=== PATIENT | female | born 1945 | race Caucasian/White ===

== ENCOUNTER 2019-08-09 09:38 | Outpatient (CLI) | payer MEDICARE, SELFPAY ==
--- NOTE | 2019-08-09 10:42 | ECG_ITS ---
Measurements Intervals [place] Rate: 77 P: 27 PA: 165 QRS: -19 QRSD: 107 T: 28 QT: 352 QTc: 398 Interpretive Statements SINUS RHYTHM FREQUENT ATRIAL PREMATURE COMPLEXES BORDERLINE R WAVE PROGRESSION, ANTERIOR LEADS BASELINE ARTIFACT- I, II, III, AVR, AVL, AVF, V1-V3 ABNORMAL ECG Electronically Signed On 08-09-2019 11:11:24 SATURATION DIVER by Dalton Lechuga D.O.
[2019-08-09 11:24] LABS: Basophils Percent Auto 0.2 % (0.2-1.2); Eosinophils Absolute Auto 0.2 K/mm3 (0-0.3); Hematocrit 44.1 % (37.0-47.0); Hemoglobin 14.5 g/dL (12.0-15.0); Immature Granulocyte Absolute 0.02 K/mm3 (0.00-0.031); Immature Granulocyte Percent A 0.2 % (0-0.5); Lymphocytes Absolute Auto 3.38 K/mm3 (0.9-3.2); Lymphocytes Percent Auto 29.5 % (18.3-44.2); Mean Corpuscular HGB Conc 32.9 g/dl (32-36); Mean Corpuscular Hemoglobin 30.2 pg (26-34); Mean Corpuscular Volume 91.9 fl (80-100); Mean Platelet Volume 10.7 fl (7.4-10.4); Monocytes Absolute Auto 0.6 K/mm3 (0.1-0.6); Monocytes Percent Auto 5.1 % (2.6-8.5); Neutrophils Absolute Auto 7.2 K/mm3 (1.3-6.7); Platelet Count Result 231 k/mm3 (150-375); Red Cell Distribution Width 13.2 % (11.5-14.5); White Blood Count 11.5 K/mm3 (4.5-10.0)
[2019-08-09 11:34] LABS: INR 1.4; Prothrombin Time 16.9 Seconds (11.1-14.7)
[2019-08-09 11:37] LABS: Alanine Aminotransferase 17 U/L (4-35); Albumin Level 4.4 g/dL (3.5-5.1); Alkaline Phosphatase 94 U/L (38-126); Aspartate Amino Transferase 25 U/L (14-36); Bilirubin,Total 0.4 mg/dL (0.2-1.3); Blood Urea Nitrogen 18 mg/dL (7-17); Calcium 9.7 mg/dL (8.4-10.2); Carbon Dioxide 28 mmol/L (22-30); Chloride 102 mmol/L (98-107); Estimated Glomerular Filt Rate > 60; Glucose 102 mg/dL (65-105); Potassium 4.3 mmol/L (3.4-5.0); Sodium 140 mmol/L (137-145)
== END 2019-08-09 09:39 | disposition home or self-care (01) ==
LOC: ANHSURGERY 09:43
PROVIDERS: PCP Family Medicine; Visit Provider Urology
DX: N81.4 Uterovaginal prolapse, unspecified (principal); I10 Essential (primary) hypertension; R94.31 Abnormal electrocardiogram [ECG] [EKG]
CPT/HCPCS: 36415; 80053; 85025; 85610; 85730; 86850; 86900; 86901; 87086; 87088; 93005

== ENCOUNTER 2019-08-19 00:24 | Day surgery (SDC) | payer MEDICARE, SELFPAY ==
[2019-08-09 10:48] VITALS: BP 152/73; PULSE 77; RESP 18; TEMP 36.8; O2SAT 98; BMI 38.0
--- NOTE | 2019-08-14 08:36 | P.HP_ITS ---
H&P: HPI History of Present Illness Chief complaint: Cystocele/ Uterine Prolapse/Fibroids Narrative: Loren Hooper is a 73 year old female who is admitted for supracervical hysterectomy and bilateral salpingo- oophorectomy. She will also undergo a hip FX in with Dr. herrera torres or current direct have this surgically repaired risks and benefits reviewed 14 tear Review of Systems Review of Systems: All systems reviewed & are unremarkable except as noted in HPI and below Meds Home Medications and Allergies Home Medications Medication Instructions Recorded Confirmed Type acetaminophen [Tylenol Arthritis 650 mg PO PRN PRN 08/09/19 08/09/19 History Pain] atorvastatin 20 mg PO DAILY 08/09/19 08/09/19 History levothyroxine 100 mcg PO DAILY 08/09/19 08/09/19 History lisinopril-hydrochlorothiazide 1 tablet PO DAILY 08/09/19 08/09/19 History wlkprrjd-sbh-DW-lycopen-lutein 1 tablet PO DAILY 08/09/19 08/09/19 History [Complete Multi 50+] omeprazole 20 mg PO DAILY 08/09/19 08/09/19 History Allergies Allergy/AdvReac Type Severity Reaction Status Date / Time No Known Allergies Allergy Unverified 08/09/19 10:05 Exam Const: General: no acute distress Eyes: General: appearance normal, both eyes and all related structures Neck: Neck: supple and no JVD Thyroid: thyroid normal Resp: Effort & Inspection: normal respiratory effort Auscultation: clear to auscultation bilaterally Cardio: Rate: regular rate Rhythm: regular rhythm GI: Inspection: non-distended GI Palp: Yes Soft to palpation, No Tenderness to palpation present (GI) and No Guarding due to palpation present (GI) Auscultation: normal bowel sounds : External Female Exam: Abnormal introitus Speculum Exam - Vagina: normal appearance of the vagina Speculum Exam - Cervix: Other cervical findings present (prolapse) Skin: General skin exam: no rashes or lesions noted Extrem: General: normal to inspection and no edema Psych: Mental Status: mental status grossly normal Affect: normal affect Assessment and Plan Additional Plan impression: Pelvic prolapse Plan: Robotic supracervical hysterectomy, bilateral salpingo-oophorectomy. She will also have sacral colpopexy with Dr. Hines
[2019-08-19] VITALS (15 sets, daily range): BP systolic 108–155; BP diastolic 53–78; PULSE 53–82; RESP 16–22; TEMP 36.1–37.1; O2SAT 93–100
--- NOTE | 2019-08-19 06:48 | WPDHPUPDATE1 ---
History and Physical Update Update Date/Time: 08/19/19 06:48 History and Physical has been reviewed, including an updated exam of the patient. There are NO changes in the patient's condition. Risks, benefits, and alternatives have been discussed and questions answered. Patient agrees to proceed with procedure.
[2019-08-19] MEDS: LACTATED RINGERS 1,000 ML 30 ML IV CONT ×2 (07:00→10:33)
--- NOTE | 2019-08-19 07:13 | P.PNAN_ITS ---
Anes - Initial Pre Proc Eval Procedure: Operation Date: 08/19/19 07:30 Proposed Procedures p Robotic Sacrocolpopexy, Possible Urethral Sling - Castillo Hines MD s Robotic Assisted Supracervical Hysterectomy, Bilateral Salpingectomy - Hermes Barksdale MD Date/Time: 08/19/19 07:13 Surgeon: Castillo Hines MD Pre Op Diagnosis: Cystocele/ Uterine Prolapse/Fibroids Patient Data Age: 73 Gender: F Height: 5 ft 3 in Weight: 97.3 kg Last Vital Signs Temp 36.8 C 08/09/19 10:48 Pulse 77 08/09/19 10:48 Resp 18 08/09/19 10:48 BP 152/73 H 08/09/19 10:48 Pulse Ox 98 08/09/19 10:48 Allergies Allergy/AdvReac Type Severity Reaction Status Date / Time No Known Allergies Allergy Unverified 08/09/19 10:05 Home Medications Medication Instructions Recorded Confirmed Type acetaminophen [Tylenol Arthritis 650 mg PO PRN PRN 08/09/19 08/09/19 History Pain] atorvastatin 20 mg PO DAILY 08/09/19 08/09/19 History levothyroxine 100 mcg PO DAILY 08/09/19 08/09/19 History lisinopril-hydrochlorothiazide 1 tablet PO DAILY 08/09/19 08/09/19 History jzgfuedo-gke-RC-lycopen-lutein 1 tablet PO DAILY 08/09/19 08/09/19 History [Complete Multi 50+] omeprazole 20 mg PO DAILY 08/09/19 08/09/19 History hydrocodone-acetaminophen [[place]] 1 tablet PO Q4H PRN #30 tablet 08/19/19 Rx Laboratory Tests 08/19/19 06:50 PT Pending INR Pending Patient hx anesthesia problems: none Family hx anesthesia problems: none PMFSH Past Medical History Medical History (Updated 08/19/19 @ 07:14 by Hilario Kuhn MD) GERD (gastroesophageal reflux disease) Hyperlipidemia Hypertension Hypothyroid Obesity Anes - Eval Final PreProcedure Day of Procedure 08/19/19 07:13 Patient weight: obese Heart: regular rate and rhythm Lungs: clear to auscultation Airway: Mallampati scale class II Neurological: alert and oriented Last oral intake: >/= 8 hours ASA classification: III Emergent: no Anesthetic plan: proceed Anesthesia type and monitoring: general ETT and standard monitoring Informed Consent: The patient's anesthetic plan and its attendant risks and benefits were discussed with the patient/family/POA. Questions were solicited and answers provided to the satisfaction of the patient/family/POA.
--- NOTE | 2019-08-19 07:21 | WPDHPUPDATE1 ---
History and Physical Update Update Date/Time: 08/19/19 07:21 History and Physical has been reviewed, including an updated exam of the patient. There are NO changes in the patient's condition. Risks, benefits, and alternatives have been discussed and questions answered. Patient agrees to proceed with procedure.
[2019-08-19] MEDS: ceFAZolin 2 GM/D5W 50 ML 2 GM/50 ML BAG IVPB (07:40)
[2019-08-19] MEDS: metroNIDAZOLE 500 MG/ISO 100ML 500 MG/100 ML BAG 100 MG IVPB ×2 (07:43→17:09)
--- NOTE | 2019-08-19 08:39 | PM.PROC ---
Procedure Note - Detailed Date of procedure: 08/19/19 Pre-op diagnosis: Cystocele/ Uterine Prolapse/Fibroids Surgeon: Hermes Barksdale MD Postop diagnosis: Cystocele/uterine prolapse/fibroids Procedure: Robotic supracervical hysterectomy bilateral salpingo-oophorectomy. This was done in conjunction with Dr. gomes robotic sacrocolpopexy EBL: 5cc Anesthesia: General endotracheal complications: None Findings: Uterine prolapse. Normal-appearing adnexa Description procedure: The patient was prepped draped in the normal sterile fashion and placed in the dorsal lithotomy position. Under excellent general endotracheal anesthesia weighted speculum was placed in posterior fornix of vagina. The anterior lip of the cervix was grasped with a single-tooth tenaculum and a Herrera's cannula inserted attached to the single-tooth to be used later for uterine removed manipulation. A [address] [place] [address] was [address] Hines proceeded to dock the robot. Please see his report for full details. Once the robot was docked attention was turned to the console. The left round ligament was grasped, burned, cut. Anterior bladder flap was formed by sharply dissecting the bladder across the superior to the bladder and reflecting it caudally to the opposite round ligament. This was then clamped, burned, cut. The left infundibulopelvic structure was skeletonized 6 in serially clamped, burned, cut and brought to the level of previous cut round ligament. In like fashion removing the right ovary and tube the infundibulopelvic structure was skeletonized. This was clamped, burned, cut and brought to the level of the previously cut round ligament next cardinal and broad ligaments on the left were serially skeletonized clamped, burned, cut. Brought down to the you had level of the uterine vessels on the left these were individually clamped, burned, cut. In like fashion the cardinal and broad ligaments on the right were serially skeletonized, clamped, burned, cut. These were brought to the level of the uterine vessels. Excellent blanching was seen. A supra and a cervical incision was made. The uterus, ovaries and tubes, were placed in the Endo-Catch. Dr. cobian proceed from there. Blood loss was estimated at5cc to this point all sponge, needle, instrument counts were correct please see his operative report for the remainder of the procedure
--- NOTE | 2019-08-19 08:44 | SUR.OPER ---
SUBHASH Y MESH lot [id number], EXP 2022-04-01. TO [place] [id number].
--- NOTE | 2019-08-19 10:04 | SUR.OPER ---
URETHRAL SLING ALYSSIA BRISCOE LOT [id number], EXP 2022-04-03. TO [place].
[2019-08-19] MEDS: BUPIVACAINE/EPINEPHRINE 0.25% 50 ML VIAL 20 ML INFILTRATE (10:08)
--- NOTE | 2019-08-19 10:18 | PM.PROC ---
Procedure Note - Detailed Date of procedure: 08/19/19 Pre-op diagnosis: Cystocele/ Uterine Prolapse/Fibroids Uterine prolapse Stress urinary incontinence Post-op diagnosis: same Procedure performed: Robotic assisted laparoscopic sacral colpopexy Mid urethral sling (transobturator sling) Cystoscopy Description of procedure: She understood the risks of bleeding, infection, damage to surrounding organs, bowel injury, bowel obstruction, recurrence of prolapse, persistent or recurrent stress incontinence, mesh related complications including exposure and extrusion, diskitis, postoperative voiding dysfunction including incontinence and retention, hip and leg pain, dyspareunia, and she agrees to proceed. She was correctly identified and informed consent was obtained. She was brought to the operating room. She was given general anesthesia. She was placed in the dorsal lithotomy position. All pressure points were padded. She was given appropriate perioperative antibiotics. Time-out performed. I anesthetized the skin 3 fingerbreadths cephalad to the umbilicus. I incised the skin. I dissected down to locate the fascia. I grasped the fascia with Rere clamps. I entered the fascia sharply. I placed Vicryl sutures for later fascial closure. I placed a midline trocar. Under direct vision 2 additional trocars were placed on the right and left upper quadrant. She was placed in steep Trendelenburg and the robot was docked. Due to her obesity kept the pressures low to aid in ventilation. Her transport engineer performed the portion of the procedure and left the specimen and a sac which was extracted. I then sat at the console. With the Sizer in the vagina I created a plane on the anterior and posterior vaginal wall. This was done for several cm taking great care not to injure the vagina, bladder, or rectum. I introduced the mesh into the abdomen. I sewed the anterior leaflet of mesh on the anterior vaginal wall and posterior leaf of the mesh on the posterior vaginal wall with several Rice-Camden sutures taking great care not to go through and through. I then reflected the colon laterally. I opened up the posterior peritoneum over the sacral promontory. I carried this into the cul-de-sac. I kept the ureters lateral. I freed up the edges. I located the anterior longitudinal ligament of the sacrum. I tensioned the mesh appropriately. I did a vaginal exam to ensure prolapse reduction without undue tension. I then sewed the proximal leaflet of mesh onto the ligament with 3 sutures of 2 0 Rice-Camden. Next the mass was meticulously retroperitonealized with a running 2 0 Monocryl suture. I allowed the colon to go back into its normal anatomic location. There is no signs of any impingement or stricturing. The abdomen was exited. Fascia was closed. Skin was closed with Monocryl and glue. She was repositioned and prepped for urethral sling. I marked out the thigh incisions. I anesthetize the skin and made those incisions. I anesthetized the anterior vaginal wall over the mid urethra. I made a 1 cm incision. I dissected out laterally taking great care not to injure the urethra or the vaginal wall. I next passed the helical trocars to 1st on the left and then on the right. This was done from the thigh incision towards the vaginal incision. The sling was connected to the trocars and brought out through the thigh incision. I tensioned the sling appropriately. I cut and removed the plastic sheaths. I then closed the incision with 2 0 Vicryl. I then performed cystoscopy. The bladder is examined. There was no tumors, stones, foreign bodies, surgical artifact. Both ureters were seen to excrete clear yellow urine. There is no surgical artifact in the urethra. Catheter was then replaced. She was awakened and transferred to the PACU in stable condition. Anesthesia: GLMA Surgeon: Castillo Hines MD Drains: Yes (Iraheta catheter) Packing: Yes Complications: No immediate compl
[2019-08-19] MEDS: ONDANSETRON INJ 4 MG/2 ML VIAL IV PUSH (11:00)
[2019-08-19] MEDS: KCL 20 MEQ/D5/0.45% SOD CHL 1,000 ML 100 ML IV CONT (12:43)
--- NOTE | 2019-08-19 14:56 | PC.NURSE ---
Pt. admitted to room 289 per hospital bed from PACU. Oriented to room and call light system. at side.
[2019-08-19] MEDS: KETOROLAC 15 MG/ML VIAL (*BKC) IV PUSH (15:57)
[2019-08-20] MEDS: metroNIDAZOLE 500 MG/ISO 100ML 500 MG/100 ML BAG 100 MG IVPB ×2 (00:04→08:40)
[2019-08-20 04:00] VITALS: BP 105/60; PULSE 62; RESP 16; TEMP 36.9
--- NOTE | 2019-08-20 06:52 | PM.OBPNVD ---
OB - PN: Subj Subjective Date/time seen: 08/20/19 06:52 Patient comments: no complaints and pain well controlled OB - PN: Obj Data Labs Labs: Laboratory Results - last 24 hr 08/19/19 06:50 PT 13.0 INR 1.0 OB - PN A/P Plan day: 1 Plan: discharge home and follow up 6 weeks (2) Time Spent With Patient Time: Total time spent is greater than 50% in coordination of care (as documented) at patient's floor/unit and/or counseling patient: Time with patient: less than 15 minutes Review of Systems Review of Systems: All systems reviewed & are unremarkable except as noted in HPI and below Exam Const: General: no acute distress Eyes: General: appearance normal, both eyes and all related structures Neck: Neck: supple and no JVD Thyroid: thyroid normal Resp: Effort & Inspection: normal respiratory effort Auscultation: clear to auscultation bilaterally Cardio: Rate: regular rate Rhythm: regular rhythm GI: Inspection: non-distended GI Palp: Yes Soft to palpation, No Tenderness to palpation present (GI) and No Guarding due to palpation present (GI) Auscultation: normal bowel sounds : General: Yes bladder normal to palpation External Female Exam: normal external appearance Speculum Exam - Vagina: normal vaginal discharge and No vaginal bleeding Speculum Exam - Cervix: nontender Bimanual exam- vagina & uterus: bladder normal to palpation and No Cervical tenderness present OB/external & speculum: No vaginal bleeding Skin: General skin exam: no rashes or lesions noted Extrem: General: normal to inspection and no edema Psych: Mental Status: mental status grossly normal Affect: normal affect
--- NOTE | 2019-08-20 06:53 | P.DS_ITS ---
DS: Diagnosis Admitting Diagnosis Admitting Diagnosis: Essential (primary) hypertension prolapse DS: Summary Time Spent with Patient Time attestation: Total time spent providing and/or coordinating discharge services: Exam Const: General: no acute distress Eyes: General: appearance normal, both eyes and all related structures Neck: Neck: supple and no JVD Thyroid: thyroid normal Resp: Effort & Inspection: normal respiratory effort Auscultation: clear to auscultation bilaterally Cardio: Rate: regular rate Rhythm: regular rhythm GI: Inspection: non-distended GI Palp: Yes Soft to palpation, No Tenderness to palpation present (GI) and No Guarding due to palpation present (GI) Auscultation: normal bowel sounds : General: Yes bladder normal to palpation External Female Exam: normal external appearance Speculum Exam - Vagina: normal vaginal discharge and No vaginal bleeding Speculum Exam - Cervix: nontender Bimanual exam- vagina & uterus: bladder normal to palpation and No Cervical tenderness present OB/external & speculum: No vaginal bleeding Skin: General skin exam: no rashes or lesions noted Extrem: General: normal to inspection and no edema Psych: Mental Status: mental status grossly normal Affect: normal affect DS: Data Data Completed and Pending Pending studies at discharge: Pending at discharge 08/19/19 08:37 Surgical [PTH] Routine Labs on day of discharge: Labs from last 24 hours 08/19/19 06:50 PT 13.0 INR 1.0 Discharge Plan Discharge Patient Disposition: Home, Self-Care Discharge Instructions: No lifting >20lb, exercise for 6 weeks No tub bath or pool for 2 weeks Follow-up/Referrals: Castillo Hines MD [Physician] - (one and 6 weeks) Discharge Medications: New hydrocodone-acetaminophen [[place]] 5-325 mg tablet 1 tablet PO Q4H PRN (Reason: pain) Qty: 30 RF: 0 hydrocodone-acetaminophen [[place]] 5-325 mg tablet 1 tablet PO Q4H PRN (Reason: pain) Qty: 20 RF: 0 docusate sodium [[place]] 100 mg capsule 100 mg PO BID Qty: 60 RF: 0 Continued atorvastatin 20 mg Tablet 20 mg PO DAILY RF: 0 lisinopril-hydrochlorothiazide 20-12.5 mg Tablet 1 tablet PO DAILY RF: 0 acetaminophen [Tylenol Arthritis Pain] 650 mg Tablet Extended Release 650 mg PO PRN PRN (Reason: Pain) RF: 0 omeprazole 20 mg Capsule,Delayed Release(Dr/Ec) 20 mg PO DAILY RF: 0 levothyroxine 100 mcg Capsule 100 mcg PO DAILY RF: 0 Complete Multi 50+ 500-300-250 mcg Tablet 1 tablet PO DAILY RF: 0
[2019-08-20] MEDS: DOCUSATE SODIUM 100 MG CAPSULE PO (08:40)
[2019-08-20] MEDS: LEVOTHYROXINE SODIUM 100 MCG TABLET PO (08:42)
[2019-08-20] MEDS: ENOXAPARIN 30 MG/0.3 ML SYRINGE SUB-Q (08:42)
[2019-08-20] MEDS: ATORVASTATIN 20 MG TABLET PO (08:43)
[2019-08-20] MEDS: hydroCHLOROthiazide 12.5 MG CAPSULE PO (08:43)
[2019-08-20] MEDS: PANTOPRAZOLE 40 MG TABLET PO (08:44)
[2019-08-20] MEDS: lisinopriL 20 MG TABLET PO (08:44)
[2019-08-20 09:25] VITALS: BP 140/50; PULSE 75; RESP 18; TEMP 36.7; O2SAT 100
--- NOTE | 2019-08-20 09:46 | WPDANESPN ---
Anes - Prog Note Post-Op Date/Time: 08/20/19 09:46 Cardiovascular status: normal Respiratory status: normal Airway patency: baseline Mental status: baseline Post-Op hydration status: normal Vital Signs: Last Vital Signs Temp 36.7 C 08/20/19 09:25 Pulse 75 08/20/19 09:25 Resp 18 08/20/19 09:25 BP 140/50 L 08/20/19 09:25 Pulse Ox 100 08/20/19 09:25 I/O: Intake & Output 08/19/19 08/20/19 08/20/19 23:59 07:59 15:59 Intake Total 450 1350 400 Output Total 450 700 300 Balance 0 650 100 Post-procedural complaints: none Patient Feedback: Patient satisfied with anesthetic care.
== END 2019-08-20 12:00 | disposition home or self-care (01) ==
LOC: ANHSURGERY 07:50 → ANHOB2 11:34
PROVIDERS: Anesthesiology; Obstetrics & Gynecology; PCP Family Medicine; Visit Provider Urology
PROC: (CPT 57425; principal; 2019-08-19 07:30)
PROC: 0UT94ZZ Resection of Uterus, Percutaneous Endoscopic Approach (ICD-10-PCS; CPT 57425; 2019-08-19 07:30)
DX: N81.4 Uterovaginal prolapse, unspecified (principal); N39.3 Stress incontinence (female) (male); N84.0 Polyp of corpus uteri; N80.0 Endometriosis of uterus; D25.1 Intramural leiomyoma of uterus; N83.312 Acquired atrophy of left ovary; N83.311 Acquired atrophy of right ovary; I10 Essential (primary) hypertension; E78.5 Hyperlipidemia, unspecified; E03.9 Hypothyroidism, unspecified; K21.9 Gastro-esophageal reflux disease without esophagitis; E66.9 Obesity, unspecified; Z68.36 Body mass index [BMI] 36.0-36.9, adult
CPT/HCPCS: 57425; 57288; 58542; S2900; 36415; 85610; 88307; 99199; A9270; C1771; C1781; J0131; J0690; J1100; J1650; J1885; J2405; J2704; J3010; J3480; J7030; J7120

== ENCOUNTER 2020-07-10 08:01 | Outpatient (CLI) | payer MEDICARE, SELFPAY ==
[2020-07-10 17:46] LABS: Add Urine Microscopic? YES; Appearance Urine Cloudy (Clear); Bacteria Urine Trace /hpf; Bilirubin Urine Negative (Negative); Blood Urine Negative (Negative); Color Urine Yellow (Yellow); Glucose Urine UA Negative (Negative); Ketones Urine Negative (Negative); Leukocyte Esterase Ur 2+ LEU/UL (Negative); Mucus Urine Rare /lpf; Nitrate Urine Negative (Negative); Protein Urine Negative (Negative); RBC Urine 0-2 /hpf (0-2); Specific Grav Ur 1.011 (1.001-1.035); Squamous Epithelial Cell Urine Many /hpf (Few); Urobilinogen Urine Negative mg/dL (<2.0)
== END 2020-07-10 08:02 | disposition home or self-care (01) ==
LOC: ANHBWCLAB 08:04
PROVIDERS: PCP Family Medicine; Visit Provider Family Medicine
DX: K21.9 Gastro-esophageal reflux disease without esophagitis (principal); E78.5 Hyperlipidemia, unspecified; E03.9 Hypothyroidism, unspecified; R79.89 Other specified abnormal findings of blood chemistry; Z79.899 Other long term (current) drug therapy
CPT/HCPCS: 81001

== ENCOUNTER 2021-09-08 00:08 | Day surgery (SDC) | payer MEDICARE, SELFPAY ==
[2021-08-27 12:21] VITALS: BMI 39.9
--- NOTE | 2021-09-07 21:49 | PM.HPGS ---
History of Present Illness History of Present Illness Consent: Risks, benefits, and alternatives have been discussed and questions answered. Patient agrees to proceed with procedure. Chief complaint: positive cologuard Narrative: Loren Hooper is a 75 year old female referred for colon cancer screening due to positive cologuard. Review of Systems Review of Systems: All systems reviewed & are unremarkable except as noted in HPI and below PMFSH Past Medical History Medical History GERD (gastroesophageal reflux disease) History of vaginal delivery Hyperlipidemia Hypertension Hypothyroid Obesity Surgical History Surgical History History of bladder suspension procedure History of hysterectomy History of tonsillectomy Status post total hip replacement, right Family History Family History Mother Lung cancer Father Heart disease Dementia Sibling Heart disease CAD (coronary artery disease) Social History Social History Smoking status: Never smoker Second hand tobacco smoke exposure: No Alcohol intake: never Substance use: never Substance use type: does not use Living arrangements: with family Gender identity (if verbalized by the patient): Female Sexual Orientation (if Verbalized by the Patient): Straight or Heterosexual Spiritual care concerns: No Agree to blood products: Yes Meds Home Medications and Allergies Home Medications Medication Instructions Recorded Confirmed Type acetaminophen 650 mg 650 mg PO PRN PRN #90 tablet 07/12/21 09/08/21 Rx tablet,extended release ascorbic acid (vitamin C) 1,000 mg 1 g PO DAILY #90 tablet 07/12/21 09/08/21 Rx tablet atorvastatin 20 mg tablet 20 mg PO DAILY #90 tablet 07/12/21 09/08/21 Rx cholecalciferol (vitamin D3) 25 25 mcg PO DAILY #90 cap 07/12/21 09/08/21 Rx mcg (1,000 unit) capsule levothyroxine 100 mcg tablet 100 mcg PO DAILY #90 tablet 07/12/21 09/08/21 Rx lisinopril 20 1 tablet PO DAILY #90 tablet 07/12/21 09/08/21 Rx mg-hydrochlorothiazide 12.5 mg tablet lenzlhly-bmt-tfsrf acid 500 1 tablet PO DAILY #90 tablet 07/12/21 09/08/21 Rx mcg-lycopene 300 mcg-lutein 250 mcg tablet omeprazole 20 mg capsule,delayed 20 mg PO DAILY #90 cap 07/12/21 09/08/21 Rx release zinc 100 mg PO DAILY 08/27/21 09/08/21 History Allergies Allergy/AdvReac Type Severity Reaction Status Date / Time No Known Allergies Allergy Verified 09/08/21 08:38 Exam Resp: Auscultation: clear to auscultation bilaterally Cardio: Rate: regular rate Rhythm: regular rhythm GI: GI Palp: Yes Soft to palpation and No Tenderness to palpation present (GI) Assessment and Plan Assessment and plan (1) Colon cancer screening: Code(s): Z12.11 - Encounter for screening for malignant neoplasm of colon Status: Acute Assessment and Plan: Colonoscopy with possible biopsy or polypectomy or cautery or injection of substances.
[2021-09-08 08:25] VITALS: BP 166/78; PULSE 104; RESP 20; TEMP 36.1; O2SAT 99; BMI 38.6
[2021-09-08] MEDS: LACTATED RINGERS 1,000 ML 150 ML IV CONT (08:53)
--- NOTE | 2021-09-08 08:57 | WPDANESEPPF ---
Anes - Initial Pre Proc Eval Procedure: Operation Date: 09/08/21 10:00 Proposed Procedures p Colonoscopy - Indra Silva MD Date/Time: 09/08/21 08:57 Surgeon: Indra Silva MD Pre Op Diagnosis: positive cologuard Patient Data Age: 75 Gender: F Height: 1.57 m Weight: 95.8 kg Last Vital Signs Temp 36.1 C L 09/08/21 08:25 Pulse 104 H 09/08/21 08:25 Resp 20 09/08/21 08:25 BP 166/78 H 09/08/21 08:25 Pulse Ox 99 09/08/21 08:25 Allergies Allergy/AdvReac Type Severity Reaction Status Date / Time No Known Allergies Allergy Verified 09/08/21 08:38 Home Medications Medication Instructions Recorded Confirmed Type acetaminophen 650 mg 650 mg PO PRN PRN #90 tablet 07/12/21 09/08/21 Rx tablet,extended release ascorbic acid (vitamin C) 1,000 mg 1 g PO DAILY #90 tablet 07/12/21 09/08/21 Rx tablet atorvastatin 20 mg tablet 20 mg PO DAILY #90 tablet 07/12/21 09/08/21 Rx cholecalciferol (vitamin D3) 25 25 mcg PO DAILY #90 cap 07/12/21 09/08/21 Rx mcg (1,000 unit) capsule levothyroxine 100 mcg tablet 100 mcg PO DAILY #90 tablet 07/12/21 09/08/21 Rx lisinopril 20 1 tablet PO DAILY #90 tablet 07/12/21 09/08/21 Rx mg-hydrochlorothiazide 12.5 mg tablet ntxyxuxd-lri-ubixg acid 500 1 tablet PO DAILY #90 tablet 07/12/21 09/08/21 Rx mcg-lycopene 300 mcg-lutein 250 mcg tablet omeprazole 20 mg capsule,delayed 20 mg PO DAILY #90 cap 07/12/21 09/08/21 Rx release zinc 100 mg PO DAILY 08/27/21 09/08/21 History Patient hx anesthesia problems: none Family hx anesthesia problems: none Results Review: All pre-operative results and documents have been reviewed as part of the pre-operative evaluation. [facility] Past Medical History Medical History (Updated 09/07/21 @ 21:51 by Indra Silva MD) GERD (gastroesophageal reflux disease) History of vaginal delivery Hyperlipidemia Hypertension Hypothyroid Obesity Surgical History Surgical History (Updated 07/09/20 @ 13:44 by Betzy Desai [facility]) History of bladder suspension procedure History of hysterectomy History of tonsillectomy Status post total hip replacement, right Family History Family History (Updated 07/09/20 @ 13:46 by Betzy Desai [facility]) Mother Lung cancer Father Heart disease Dementia Sibling Heart disease CAD (coronary artery disease) Social History Social History (Updated 07/09/20 @ 13:49 by Betzy Dseai [facility]) Smoking status: Never smoker Second hand tobacco smoke exposure: No Alcohol intake: never Substance use: never Substance use type: does not use Living arrangements: with family Gender identity (if verbalized by the patient): Female Sexual Orientation (if Verbalized by the Patient): Straight or Heterosexual Spiritual care concerns: No Agree to blood products: Yes Anes - Eval Final PreProcedure Day of Procedure 09/08/21 08:57 Patient weight: obese Heart: regular rate and rhythm Lungs: clear to auscultation and normal air movement Airway: Mallampati scale class II Neurological: alert and oriented Last oral intake: >/= 8 hours ASA classification: III Emergent: no Anesthetic plan: proceed Anesthesia type and monitoring: general GIVS Results Review: All pre-operative results and documents have been reviewed as part of the pre-operative evaluation. Informed Consent: The patient's anesthetic plan and its attendant risks and benefits were discussed with the patient/family/POA. Questions were solicited and answers provided to the satisfaction of the patient/family/POA.
[2021-09-08 10:11] VITALS: BP 109/59; PULSE 75; RESP 36; O2SAT 95
[2021-09-08 10:21] VITALS: BP 116/69; PULSE 75; RESP 28; O2SAT 100
[2021-09-08 10:31] VITALS: BP 127/75; PULSE 73; RESP 25; O2SAT 100
== END 2021-09-08 10:43 | disposition home or self-care (01) ==
PROVIDERS: PCP Family Medicine; Visit Provider Internal Medicine Gastroenterology
PROC: 0DJD8ZZ Inspection of Lower Intestinal Tract, Via Natural or Artificial Opening Endoscopic (ICD-10-PCS; CPT 45378; principal; 2021-09-08 10:00)
DX: Z12.11 Encounter for screening for malignant neoplasm of colon (principal); R19.5 Other fecal abnormalities; K57.30 Diverticulosis of large intestine without perforation or abscess without bleeding; K21.9 Gastro-esophageal reflux disease without esophagitis; I10 Essential (primary) hypertension; E78.5 Hyperlipidemia, unspecified; E03.9 Hypothyroidism, unspecified; E66.9 Obesity, unspecified; Z68.38 Body mass index [BMI] 38.0-38.9, adult
CPT/HCPCS: G0121; J2704; J7120

== ENCOUNTER 2023-04-10 11:47 | Outpatient (CLI) | payer MEDICARE, SELFPAY ==
--- NOTE | ~2023-04-10 | XR_ITS ---
EXAMINATION: XR humerus RT DATE: 04/10/2023 11:59 INDICATION: Pain in the mid to distal right humerus. TECHNIQUE: 2 views of right humerus were obtained. COMPARISON: None. FINDINGS: Bone alignment is normal. No fracture. There is mild osteoarthritis of acromioclavicular tino int. There is calcific tendinitis of the rotator cuff. IMPRESSION: 1. Calcific tendinitis of the right rotator cuff. 2. Mild osteoarthritis of right acromioclavicular joint. Reviewed, dictated and finalized at location A.
== END 2023-04-10 11:48 | disposition home or self-care (01) ==
PROVIDERS: PCP Family Medicine; Visit Provider Family Medicine
DX: M75.31 Calcific tendinitis of right shoulder (principal); M19.011 Primary osteoarthritis, right shoulder
CPT/HCPCS: 73060

== ENCOUNTER 2023-05-02 18:11 | Emergency (ER) | payer MEDICARE, SELFPAY ==
--- NOTE | ~2023-05-02 | CT_ITS ---
EXAMINATION: CT brain wo con DATE: 05/02/2023 18:43 INDICATION: Status post fall. Head injury. TECHNIQUE: Computed tomography (CT) of the head was performed without intravenous contrast. The dose- length product was 681.00 mGy-cm. Automated exposure control and iterative reconstruction technique w ere employed. COMPARISON: None FINDINGS: Prominent cisterna magna versus arachnoid cyst of the posterior fossa. Brain parenchymal vo lume is normal for age. There are scattered mild periventricular and subcortical white matter changes , most likely related to small vessel ischemic disease (microangiopathy). No acute intracranial hemor rhage, infarction, mass or mass effect. There is mild intracranial atherosclerosis. Paranasal sinuses and mastoids are pneumatized. No depressed skull fractures. IMPRESSION: 1. No acute intracranial abnormality. Reviewed, dictated and finalized at location A.
--- NOTE | ~2023-05-02 | CT_ITS ---
EXAMINATION: CT thoracic spine wo con DATE: 05/02/2023 18:43 INDICATION: Back pain after fall TECHNIQUE: Computed tomography (CT) of the thoracic spine was performed without intravenous contrast. The dose-length product was 1410.27 mGy-cm. Automated exposure control and iterative reconstruction technique were employed. COMPARISON: None FINDINGS: There is mild levoscoliosis. There is moderate multilevel thoracic spondylosis. 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 No paraspinal soft tissue abnormality. No focal airspace consolidation. No suspicio us pulmonary nodules or masses. No soft tissue abnormality. IMPRESSION: 1. No acute abnormality of the thoracic spine. 2: Moderate thoracic spondylosis. Reviewed, dictated and finalized at location A.
--- NOTE | ~2023-05-02 | CT_ITS ---
EXAMINATION: CT cervical spine wo con DATE: 05/02/2023 18:43 INDICATION: Neck pain after fall TECHNIQUE: Computed tomography (CT) of the cervical spine was performed without intravenous contrast. The dose-length product was 444 mGy-cm. Automated exposure control and iterative reconstruction tech nique were employed. COMPARISON: None FINDINGS: Straightening of normal cervical lordosis. Moderate multilevel cervical spondylosis with di sc narrowing and endplate degenerative change at C3-4, C4-5, C5-6 and C6-7. There is fusion at C7-T1. Straightening of cervical lordosis. No evidence for perched facet. Craniovertebral junction is murtaza l. Odontoid process is normal. There is advanced multilevel uncinate hypertrophy. There is emphysema in the lung apices. No acute fracture or traumatic malalignment. IMPRESSION: 1. No acute abnormality of the cervical spine. Reviewed, dictated and finalized at location A.
[2023-05-02 18:14] VITALS: BP 171/66; PULSE 79; RESP 20; TEMP 36.2; O2SAT 96
--- NOTE | 2023-05-02 18:23 | ED.FALL ---
HPI - Fall General Chief Complaint: Fall <KYE Werner Last Filed: 05/02/23 18:27> Stated Complaint: fall/hi/neck pain/denies blood thinners <KYE Werner Last Filed: 05/02/23 18:27> Time Seen by Provider: 05/02/23 19:08 <KYE Werner Last Filed: 05/02/23 18:27> Source: patient <KYE Werner Last Filed: 05/02/23 18:27> Mode of arrival: ambulatory <KYE Werner Filed: 05/02/23 18:27> Limitations: no limitations <KYE Werner Filed: 05/02/23 18:27> History of Present Illness HPI Narrative: Patient is a 77 y/o female who presents to the ED with c/o fall with head injury. Patient reports she was walking down her foyer steps backwards today and thought she was at the last step, but tripped and fell backwards. She hit her head against the door. Denies LOC. She does not recall feeling dizzy or lightheaded prior to the fall. Denies any other prodromal symptoms. Denies syncope. She complains of pain to her head, neck, upper back and shoulders. Denies lower back pain, difficulty breathing, numbness, tingling. <KYE Werner Last Filed: 05/02/23 18:27> Related Data Home Medications: Home Medications Medication Instructions Recorded Confirmed zinc 100 mg tablet 100 mg PO DAILY 08/27/21 09/08/21 <KYE Werner Last Filed: 05/02/23 18:27> Allergies/Adverse Reactions: Allergies Allergy/AdvReac Type Severity Reaction Status Date / Time No Known Allergies Allergy Verified 04/10/23 10:39 <KYE Werner Last Filed: 05/02/23 18:27> Review of Systems Review of Systems: CONSTITUTIONAL: Denies fever, chills, or sweats. MUSCULOSKELETAL: See HPI. NEUROLOGIC: See HPI. <Tory Sloan PA-C - Last Filed: 05/02/23 18:27> All systems reviewed & are unremarkable except as noted in HPI and below <Tory Sloan PA-C - Last Filed: 05/02/23 18:27> PMFSH Past Medical History Medical History: Medical History GERD (gastroesophageal reflux disease) History of vaginal delivery Hyperlipidemia Hypertension Hypothyroid Obesity <Tory Sloan PA-C - Last Filed: 05/02/23 18:27> Surgical History Surgical History: Surgical History History of bladder suspension procedure History of hysterectomy History of tonsillectomy Status post total hip replacement, right <Tory Sloan PA-C - Last Filed: 05/02/23 18:27> Family History Family History: Family History Mother Lung cancer Father Heart disease Dementia Sibling Heart disease CAD (coronary artery disease) <Tory Sloan PA-C - Last Filed: 05/02/23 18:27> Social History Social History: Social History Smoking status: Never smoker Second hand tobacco smoke exposure: No Alcohol intake: never Substance use: never Substance use type: does not use Lack of Transportation: No Lack of Food: Never True Current Housing: I Have Housing Concerned About Future Housing: No Difficulty Paying Gas/Electric Bills: No Difficulty Paying for Meds: No Currently Unemployed: No Education: High School Diploma/GED Living arrangements: with family Occupation/Education: retired Gender identity (if verbalized by the patient): Female Sexual Orientation (if Verbalized by the Patient): Straight or Heterosexual Spiritual care concerns: No Agree to blood products: Yes <Tory Sloan PA-C - Last Filed: 05/02/23 18:27> Exam Narrative: GENERAL: Elderly, morbidly obese with BMI of 40.2, non-toxic, in no acute distress. HEAD: Normocephalic
[2023-05-02 19:43] VITALS: BP 164/82; PULSE 82; RESP 18; O2SAT 100
== END 2023-05-02 19:57 | disposition home or self-care (01) ==
LOC: ANHED 19:47
PROVIDERS: Emergency Provider Physician Assistant; PCP Family Medicine
DX: R51.9 Headache, unspecified (principal); M54.2 Cervicalgia; M54.6 Pain in thoracic spine; M25.512 Pain in left shoulder; M25.511 Pain in right shoulder; E78.5 Hyperlipidemia, unspecified; I10 Essential (primary) hypertension; E03.9 Hypothyroidism, unspecified; W10.9XXA Fall (on) (from) unspecified stairs and steps, initial encounter
CPT/HCPCS: 70450; 72125; 72128; 99284

== ENCOUNTER 2024-01-31 16:03 | Outpatient (CLI) | payer MEDICARE, SELFPAY ==
--- NOTE | 2024-01-31 16:11 | ECG_ITS ---
Test Date: 2024-01-31 16:28:28 Measurements Intervals [place] Rate: 74 P: 48 [place]: 197 QRS: -22 QRSD: 99 T: 57 QT: 325 QTc: 362 Interpretive Statements SINUS RHYTHM BASELINE ARTIFACT- I, II, III, AVR, AVL, AVF, V1 NORMAL ECG No previous ECG available for comparison Electronically Signed On 01-31-2024 20:30:21 CDT by Dalton Lechuga D.O.
== END 2024-01-31 16:04 | disposition home or self-care (01) ==
LOC: ANHCARD 16:09
PROVIDERS: PCP Family Medicine; Visit Provider Family Medicine
DX: Z01.818 Encounter for other preprocedural examination (principal); R73.03 Prediabetes
CPT/HCPCS: 93005

== ENCOUNTER 2024-08-11 15:10 | Emergency (ER) | payer MEDICARE, SELFPAY ==
--- NOTE | ~2024-08-11 | XR_ITS ---
CHEST RADIOGRAPH, PA AND LATERAL CLINICAL HISTORY: cough, congestion . COMPARISON: 01/27/2019 TECHNIQUE: PA and lateral views of the chest. FINDINGS The cardiomediastinal silhouette is unremarkable. The lungs are clear. Visualized osseous structures and soft tissues are unremarkable. IMPRESSION: No focal infiltrate or effusion. Reviewed, dictated and finalized at location [facility]. [facility]
--- OUTSIDE RECORDS SUMMARY | 2024-08-11 15:12 | XMS_ITS | Clinical Summary ---
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 DAVID MCNAMARA MD Active Last Documented On 03/21/2014 11:56AM ; [facility] Note: 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 DAVID MCNAMARA MD Active Last Documented On 2 4:16PM ; [facility] 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 DAVID MCNAMARA MD Active Last Documented On 2 4:16PM ; [facility] Plan of Treatment No Plan of Treatment Recorded Assessments Includes: Assessments from this encounter No Assessments Recorded Medical Equipment - Implanted Devices Includes: Current Devices No Medical Equipment Recorded Medications Includes: Medications discussed during this encounter and other current Medications Current Medications (continue as prescribed) Levothyroxine Sodium 100 MCG OR TABS 01/15/2014 Prov ider: Diagnosis: Last Documented On 03/21/2014 11:17AM By GRAEME AREVALO LPN ; [facility] Fluocinonide 0.05% EX CREA 06/04/2012 Provider: Diagnosis: Last Documented On 03/21/2014 11:17AM By GRAEME AREVALO LPN ; [facility] Fish Oil OIL 05/08/2012 Provider: Diagnosis: Last Documented On 05/08/2012 1:48PM By GRAEME AREVALO LPN ; [facility] Lisinopril-hydroCHLOROthiazide -12.5 MG TABS 011 Provider: Diagnosis: Last Documented On 05/05/2011 1:02PM By HIRA CAUSEY RN ; [facility] Vitamin D3 1000 UNIT OR CAPS 05/05/2011 Provider : Diagnosis: TWO DAILY Last Documented On 05/05/2011 1:06PM By HIRA CAUSEY RN ; [facility] Colace 100 MG OR CAPS 05/05/2011 Provider: Diagnosis: TWO BID Last Documented On 05/05/2011 1:07PM By HIRA CAUSEY RN ; [facility] Simvastatin 40 MG OR TABS 05/05/2011 Provider: Diagnosis: Last Documented On 05/05/2011 1:07PM By HIRA CAUSEY RN ; [facility] Calcium + D 315-200 MG-UNIT OR TABS 05/05/2011 Provi jatin: Diagnosis: Last Documented On 05/05/2011 1:01PM By HIRA CAUSEY RN ; [facility] Omeprazole 20 MG OR CPDR 05/05/2011 Provider: Diagnosis: Last Documented On 05/05/2011 1:00PM By HIRA CAUSEY RN ; [facility] Medications Administered Includes: Administered Medications from this encounter No Administered Medications Recorded Results Includes: Results discussed during this encounter No Results Recorded For Specified Dates History of Present Illness Includes: History of Present Illness from this encounter No History of Present Illness Recorded Social History No Social History Recorded - Smoking Status Unknown Medical History Includes: Medical History addressed during this encounter No Medical History Recorded Family History Includes: Family History addressed during this encounter No Family History Recorded Review of Systems Includes: Review of Systems from this encounter No Review of Systems Recorded Mental Status Includes: Mental Status from this encounter No Mental Status Recorded Functional Status Includes: Functional Status from this encounter No Functional Status Recorded Physical Exam Includes: Physical Exam from this encounter No Physical Exam Recorded Allergies Includes: Active Allergies No Known Allergies Encounters Encounter Provider Location Date Check-In Time Check-Out Time Diagnosis RK MCNAMARA MD [facility] ANCHOR TACKER 05/14/2012 7:47AM 9:32AM Clinical Notes Includes: Clinical Notes from this encounter No Clinical Notes Recorded
--- OUTSIDE RECORDS SUMMARY | 2024-08-11 15:12 | XMS_ITS ---
Care Plan - [facility] Created on: August 11, 2024 CELESTE PENDLETON : 1945 Sex: Female Author Organization [facility] Address [address] [place] [address] Phone Care Team Providers Care Unmanned Equipment Operator Name Role Phone Unavailable Unavailable Unavailable
--- OUTSIDE RECORDS SUMMARY | 2024-08-11 15:12 | XMS_ITS | Clinical Summary ---
Author Organization [facility] Address [address] [address] Phone Care Team Providers Care Warehouse Operator Name Role Phone Provider, None Primary Care Provider Unavailabl e Allergies No known active allergies Medications atorvastatin (LIPITOR) 20 MG TabletIndications :Hyperlipidemia Take 1 Tab by mouth daily. 90 Tab 3 06/29/2015 Active levothyroxine (SYNTHROID) 100 MCG TabletIndications :Thyroid disease Take 1 Tab by mouth daily. 90 Tab 3 06/29/2015 Active lisinopril-hydroc hlorothiazide (PRINZIDE, ZESTORETIC) 20-12.5 MG TabletIndications :Essential hypertension Take 1 Tab by mouth daily. 90 Tab 4 06/29/2015 Active omeprazole (PRILOSEC) 20 MG CAPSULE DELAYED RELEASEIndication s:Gastroesophagea l reflux disease without esophagitis Take 1 Cap by mouth daily. 90 Cap 3 06/29/2015 Active Active Problems Problem Noted Date Diagnosed Date Hyperlipidemia Hypertension Thyroid disease Acid reflux Family History Medical History Relation Name Comments Heart Attack Father Hypertension Father Cancer Mother Relation Name Status Comments Father Mother Social History Tobacco Use Types Packs/Day Years Used Date Smoking Tobacco: Never Alcohol Use Standard Drinks/Week Comments No 0 (1 standard drink = 0.6 oz pur e alcohol) Sexually Active Control Partners Comments Not Currently Comments No Sex and Gender Information Value Date Recorded Sex Assigned at Not on file Legal Sex Female 4:45 PM MANAGEMENT DEVELOPMENT SPECIALIST Gender Identity Not on file Sexual Orientation Not on file Last Filed Vital Signs Vital Sign Reading Time Taken Comments Blood Pressure 148/88 06/29/2015 10:04 AM MANAGEMENT DEVELOPMENT SPECIALIST Pulse 97 06/29/2015 10:04 AM MANAGEMENT DEVELOPMENT SPECIALIST Temperature 35.7 C (96.3 F) 06/29/2015 10:04 AM MANAGEMENT DEVELOPMENT SPECIALIST Respiratory Rate 20 06/29/2015 10:04 AM MANAGEMENT DEVELOPMENT SPECIALIST Oxygen Saturation 98% 06/29/2015 10:04 AM MANAGEMENT DEVELOPMENT SPECIALIST Inhaled Oxygen Concentration - - Weight 97.6 kg (215 lb 3.2 oz) 06/29/2015 10:04 AM MANAGEMENT DEVELOPMENT SPECIALIST Height 157.5 cm (5' 2 ) 06/29/2015 10:04 AM MANAGEMENT DEVELOPMENT SPECIALIST Body Mass Index 39.36 06/29/2015 10:04 AM MANAGEMENT DEVELOPMENT SPECIALIST Plan of Treatment Health Maintenance Due Date Last Done Comments DEXA Bone Density 1945 Hepatitis C Virus (HCV) Screening 1945 TdaP Immunization 1945 Pneumococcal Immunization (5 0+ years) (1 of 1 - PCV) 1996 Zoster Immunization (1 of 2) 1996 Respiratory Syncytial Virus (RSV) Immunization (Adult) (1 - 1-dose 75+ series) 2021 Influenza Immunization (#1) 2024 SARS-COV-2 Immunization ( - 2023-25 season) 2024 Mammogram Discontinued 07/09/2015 Hepatitis B Immunization Aged Out No longer eligible based on patient's age to complete this topic Meningococcal Immunization (ACWY) Aged Out No longer eligible based on patient's age to complete this topic Rotavirus Immunization Aged Out No lo nger eligible based on patient's age to complete this topic Procedures Procedure Name Priority Date/Time Associated Diagnosis Comments BENJAMIN DIAG BILATERAL DIGITAL W CAD W HIRAM Routine 07/09/2015 from Last 3 Months or Most Recently Relevant to Health Maintenance Results * BENJAMIN DIAG BILATERAL DIGITAL W CAD W HIRAM (07/09/2015) Anatomical Region Laterality Modality breast Bilateral Other Tory Hoyt MD IMG MAMMO ORDERABLES Final Result from Last 3 Months or Most Recently [place] [address] MEDICARE Care Teams Warehouse Operator Relationship Specialty Start Date End Date Provider, None [place] PCP - General 12/17/20
--- OUTSIDE RECORDS SUMMARY | 2024-08-11 15:12 | XMS_ITS | Clinical Summary ---
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 DAVID MCNAMARA MD Active Last Documented On 03/21/2014 11:56AM ; [facility] Note: Unchanged Past Visits Onset Date Resolved Date Provider Condition Status Cystocele 03/21/2014 DAVID MCNAMARA MD Active Last Documented On 03/21/2014 11:56AM ; [facility] Note: 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 Fluocinonide 0.05 % CREA, , 30 days, 6 refills, Lidex 0.05% cream; Disp: 60 g cream; Sig: apply to affected area nightly x 2 weeks, then 2 x per week. - Last Documented On 06/04/2012 2:46PM ; [facility] Assessments Includes: Assessments from this encounter Findings - Lichen simplex chronicus - Last Documented On 06/04/2012 2:46PM ; [facility] Medical Equipment - Implanted Devices Includes: Current Devices No Medical Equipment Recorded Medications Includes: Medications discussed during this encounter and other current Medications New / Renewed during this visit DAVID MCNAMARA MD on 06/04/2012 Fluocinonide 0.05% EX CREA Provider: Gutierrez MCNAMARA MD 30 day supply: 60 gram, 6 refills Diagnosis: Lidex 0.05% cream; Disp: 60 g cream; Sig: apply to affected area nightly x 2 weeks, then 2 x per week. Pharmacy: [facility], [address] - Last Documented On 03/21/2014 11:55AM By DAVID MCNAMARA MD ; [facility] Current Medications (continue as prescribed) Levothyroxine Sodium 100 MCG OR TABS 01/15/2014 Prov ider: Diagnosis: Last Documented On 03/21/2014 11:17AM By GRAEME AREVALO LPN ; [facility] Fluocinonide 0.05% EX CREA 06/04/2012 Provider: Diagnosis: Last Documented On 03/21/2014 11:17AM By GRAEME AREVALO LPN ; [facility] Fish Oil OIL 05/08/2012 Provider: Diagnosis: Last Documented On 05/08/2012 1:48PM By GRAEME AREVALO LPN ; [facility] Lisinopril-hydroCHLOROthiazide 20-12.5 MG TABS 011 Provider: Diagnosis: Last Documented On 05/05/2011 1:02PM By HIRA CAUSEY RN ; [facility] Vitamin D3 1000 UNIT OR CAPS 05/05/2011 Provider : Diagnosis: TWO DAILY Last Documented On 05/05/2011 1:06PM By HIRA CAUSEY RN ; [facility] Colace 100 MG OR CAPS 05/05/2011 Provider: Diagnosis: TWO BID Last Documented On 05/05/2011 1:07PM By HIRA CAUSEY RN ; [facility] Simvastatin 40 MG OR TABS 05/05/2011 Provider: Diagnosis: Last Documented On 05/05/2011 1:07PM By HIRA CAUSEY RN ; [facility] Calcium + D 315-200 MG-UNIT OR TABS 05/05/2011 Provi jatin: Diagnosis: Last Documented On 05/05/2011 1:01PM By HIRA CAUSEY RN ; [facility] Omeprazole 20 MG OR CPDR 05/05/2011 Provider: Diagnosis: Last Documented On 05/05/2011 1:00PM By HIRA CAUSEY RN ; [facility] Medications Administered Includes: Administered Medications from this encounter No Administered Medications Recorded Vital Signs Includes: Vital Signs from this encounter Vital Name 06/04/2012 02:30P Blood Pressure Sitting (mmHg) 110/72 Height (in) 62.75 Weight (lb) 217 Body Mass Index (kg/m2) 38.7 Body Surface Area (m2) 2.0 Last Documented: On 06/04/2012 2:33PM ; [facility] Results Includes: Results discussed during this encounter No Results Recorded For Specified Dates History of Present Illness Includes: History of Present Illness from this encounter BONITA PENDLETON is a 66 year old female. Pt denies any problems from the vulvar biopsy done on 05/14/2012. Pathology report shows lichen simlex chronicus. Reviewed with her that this is benign-- not cancerous or pre cancer. She is pleased. Social History No Social History Recorded - Smoking Status Unknown Procedures and Surgical History Includes: Procedures from this encounter Procedures Code Diagnosis Performing Provider Service L ocation Service Date Clinical summary provided to patient Last Documented On 2 2:45PM ; [facility] Medical History Includes: Medical History addressed during [...] Exam Includes: Physical Exam from this encounter Allergies Includes: Active Allergies No Known Allergies Encounters Encounter Provider Location Date Check-In Time Check-Out Time Diagnosis RECHECK DAVID MCNAMARA MD [facility] [employer]CT POLICE SERGEANT 2 2:28PM 2:42PM Lichen Simplex Chronicus Clinical Notes Includes: Clinical Notes from this encounter No Clinical Notes Recorded
--- OUTSIDE RECORDS SUMMARY | 2024-08-11 15:12 | XMS_ITS | Clinical Summary ---
Author Organization [facility] Address [address] [place] [address] Care Team Providers Care Manipulator Operator Name Role Phone Jean Lezama MD Primary Care Provider [phone] Source Comments [facility]non-owned Affiliates and Associated Physician Practices is amultiple site organization consisting of ambulatory clinics and hospital sitesin [place], [place], [place] and [place]. This disclosure is being madepursuant to the Care Everywhere program and may not contain all information available regarding this patient. Last updated 18.[employer] Allergies No known active allergies Medications * Be aware that medications may not be up to date on this document. Alwaysverify current medications with the patient. Medication Sig Dispensed Refills Start Date End Date Status lisinopril-hydrochl orothiazide (PRINZIDE; ZESTORETIC) 20-12.5 MG tablet Take 1 (one) tablet by mouth once daily after breakfast Instructed to take AM of surgery 07/29/2010 Active atorvastatin (LIPITOR) 20 MG tablet Take 1 (one) tablet by mouth at bedtime Active omeprazole (PRILOSEC) 20 MG capsule Take 1 (one) capsule by mouth at bedtime Active levothyroxine (SYNTHROID) 100 MCG tablet Take 1 (one) tablet by mouth daily before breakfast Active metFORMIN (Glucophage) 500 MG tablet Take 1 (one) tablet by mouth once daily 01/31/2024 Active oxyCODONE-acetamino phen (Percocet) 7.5-325 MG tabletIndications:A cute pain of right knee Take 1 (one) tablet by mouth every 6 hours as needed for Pain 30 tablet 03/14/2024 Active aspirin EC (Ecotrin) 81 MG tablet Take 1 (one) tablet by mouth 2 times daily 56 tablet 03/14/2024 Active Active Problems Problem Noted Date Diagnosed Date Acute pain of right knee 03/13/2024 Family History Medical History Relation Name Comments CAD (Coronary Artery Disease) Father CAD (Coronary Artery Disease) Mother Cancer Mother lung Relation Name Status Comments Father Mother Social History Tobacco Use Types Packs/Day Years Used Date Smoking Tobacco: Never Smokeless Tobacco: Never Tobacco Cessation:Counseling Given: Not Answered Alcohol Use Standard Drinks/Week Comments No 0 (1 standard drink = 0.6 oz pur e alcohol) Overall Financial Resource Strain (CARDIA) Answe r Date Recorded How hard is it for you to pa y for the very basics like food, housing, medical care, and heating? Not hard at all 03/13/2024 [facility] [place] [facility] Occupat ional [facility] - Occupational Stress Questionnaire Answer Date Recorded Do you feel stress - tense, restless, nervous, or anxious, or unable to sleep at night because your mind is troubled all the time - these days? Not at all 03/13/2024 Hunger Vital Sign Answer Date Recorded Within the past 12 months, y ou worried that your food would run out before you got the money to buy more. Never true 03/13/20 24 Within the past 12 months, t he food you bought just didn't last and you didn't have money to get more. Never true 03/13/2024 PRAPARE - Transportation Answer Date Re corded In the past 12 months, has l ack of transportation kept you from medical appointments or from getting medications? No 03/03 In the past 12 months, has l ack of transportation kept you from meetings, work, or from getting things needed for daily living? No 03/13/2024 Housing Stability Vital Sign Answer Ac e Recorded In the last 12 months, was t here a time when you were not able to pay the mortgage or rent on time? No 03/13/2024 In the last 12 months, how many places have you lived? 1 03/13/2024 In the last 12 months, was t here a time when you did not have a steady place to sleep or slept in a prison (including now)? No 03/13/2024 Sex and Gender Information Value Date Recorded Sex Assigned at Not on file Gender Identity Not on file Sexual Orientation Not on file Last Filed Vital Signs Vital Sign Reading Time Taken Comments Blood Pressure 128/58 03/15/2024 10:41 AM CDT Pulse 86 03/15/2024 10:41 AM CDT Temperature 36.6 C (97.9 F) 03/15/2024 3:03 AM CDT Respiratory Rate 16 03/15/2024 8:10 AM CDT Oxygen Saturation 99% 03/15/2024 8:10 AM CDT Inhaled Oxygen Concentration - - Weight 91.6 kg (202 lb) 03/13/2024 6:17 AM CDT Height 157.5 cm (5' 2 ) 03/13/2024 6:17 AM CDT s tated per pt Body Mass Index 36.95 03/13/2024 6:17 AM CDT Plan of Treatment Health Maintenance Due Date Last Done Comments BONE DENSITY TESTING 1945 MEDICARE AWV 12 MONTHS 1945 HEPATITIS C SCREENING 10/27/1964 DTAP/TDAP/TD VACCINES (1 - Tdap) 1965 PNEUMOCOCCAL VACCINE 50+ (1 of 1 - PCV) 1996 ZOSTER VACCINE (1 of 2) 1996 Respiratory Syncytial Virus (RSV) Vaccine Pt: or over 60 yrs (1 - 1-dose 75+ series) 2021 COVID-19 VACCINE ( - 2023- season) 2024 INFLUENZA VACCINE (#1) 2024 DEPRESSION SCREENING 07/03/2024 SCREENING FOR DIABETES 03/15/2027 4, 03/14/2024, 03/14/2024, Additional history exists HEPATITIS B VACCINE Aged Out No longe r eligible based on patient's age to complete this topic HIB VACCINE Aged Out No longer eligi ble based on patient's age to complete this topic HPV VACCINE Aged Out No longer eligi ble based on patient's age to complete this topic MENINGOCOCCAL (Group B) VACCINE Aged Out No longer eligible based on patient's age to complete this topic MENINGOCOCCAL VACCINE Aged Out No cesario frank eligible based on patient's age to complete this topic Goals Goal Patient Goal Type Associated Problems Recent Progress Patient-Stated? Author Help patient manage total joint replacement - knee General No Taylor Nguyen, RN Note: D/C return home with spouse and [facility]; Spouse will provide transportation at D/C. Medical Devices Implanted Type Area Director Of In Service Education Device Identifier Shelf Expiration Date Model / Serial / Lot Cmnt Bone Plc R 40gm Hvisc Grn Implanted:Qty: 1 on 03/13/2024 by Ginny Everett MD at [facility] Right: Knee Heraeus Kulzer Jelenko 06/01/2028 [id number] / / [id number] Cmpnt Fem Kn Rt Cr Cmnt Prm Vngrd Intlk Implanted:Qty: 1 on 03/13/2024 by Ginny Everett MD at [facility] Right: Knee [employer] 12/05/2033 [id number] / / [id number] Cmpnt Ptlr 31mm 1 Pg Wire Ascnt Arcm Kn Implanted:Qty: 1 on 03/13/2024 by Ginny Everett MD at [facility] Right: Knee [employer] 06/22/2027 [id number] / / [id number] Tray Tib 67mm Kn Cocr I Beam Implanted:Qty: 1 on 03/13/2024 by Ginny Everett MD at [facility] Right: Knee [employer] 10/06/2032 [id number] / / [id number] Brng [id number] Vngrd Vivacit-E Kn Ant Stab Implanted:Qty: 1 on 03/13/2024 by Ginny Everett MD at [facility] Right: Knee [employer] 01/21/2029 [id number] / / [id number] Procedures Procedure Name Priority Date/Time Associated Diagnosis Comments GLUCOSE - POINT OF CARE Routine 03/15/2024 8:09 AM CDT from Last 3 Months or Most Recently Relevant to Health Maintenance Results * GLUCOSE - POINT OF CARE (03/15/2024 8:09 AM CDT) [facility] Glucose WB/POC 99 70 - 106 mg/dL 03/15/2024 9:09 AM CDT [facility] Specimen Type Cap Fingerstick 2023 9:09 AM CDT [facility] Blood BLOOD SPECIMEN / Unknown 03/15/2024 8:09 AM CDT 03/15/2024 9:09 AM CDT Ginny Everett MD LAB - POINT OF CARE ORDERABLES Performing Organization Address City/State/[facility] Co de Phone Number [facility] [address] [place] [address] from Last 3 Months or Most Recently Relevant to Health Maintenance Advance Directives Documents on File Type Date 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
--- OUTSIDE RECORDS SUMMARY | 2024-08-11 15:12 | XMS_ITS | Continuity of Care Document ---
Author Organization [facility] Address [address] [place] [address] Phone Care Team Providers Care Waste Machine Operator Name Role Phone Ginny Everett MD Unavailable Unavailable Allergies, Adverse Reactions, Alerts Substance Reaction Status Criticality No Known Allergies Active No Inform ation Medications Medication Instructions Dosage Effective Dates (start - stop) Status Comments amoxicillin 500 mg tablet Take 2 tabs 1 Hour prior to Dental work & 2 tabs 1 Hour after dental work. - Active atorvastatin 20 mg tablet take 1 tablet by oral route every day 20 MG - Active multivitamin capsule - Active omeprazole 20 mg capsule,delayed release take 1 capsule by oral route every day 30 minutes to 1 hour before a meal 20 MG - Active Tirosint 100 mcg capsule take 1 capsule by oral route every day 100 MCG - Active lisinopril 20 mg-hydrochlorothiazi de 12.5 mg tablet take 1 tablet by oral route every day 1.00 tablet - Active Procedures Procedure Date POSTOPERATIVE FOLLOW-UP VISIT, INCLUDED IN GLOBAL SERVICE POSTOPERATIVE FOLLOW-UP VISIT, INCLUDED IN GLOBAL SERVICE POSTOPERATIVE FOLLOW-UP VISIT, INCLUDED IN GLOBAL SERVICE POSTOPERATIVE FOLLOW-UP VISIT, INCLUDED IN GLOBAL SERVICE X-RAY EXAM OF KNEE, A/P & LAT POSTOPERATIVE FOLLOW-UP VISIT, INCLUDED IN GLOBAL SERVICE POSTOPERATIVE FOLLOW-UP VISIT, INCLUDED IN GLOBAL SERVICE ARTHROPLAST, KNEE, MEDIAL AN D LATERAL COMPARTMENT W/WO PATELLA RESURFACING OFFICE [id number] Cirilo-13-2024 KENALOG 10 MG ASP/INJ MAJOR JOINTOR BURSA, SHOULDER, H IP,KNEE W/O US GUIDANCE OFFICE [id number] KENALOG 10 MG ASP/INJ MAJOR JOINTOR BURSA, SHOULDER, H IP,KNEE W/O US GUIDANCE RADIOLOGIC EXAMINATION, KNEE; THREE VIEW S KENALOG 10 MG ASP/INJ MAJOR JOINTOR BURSA, SHOULDER, H IP,KNEE W/O US GUIDANCE OFFICE [id number] KENALOG 10 MG ASP/INJ MAJOR JOINTOR BURSA, SHOULDER, H IP,KNEE W/O US GUIDANCE OFFICE [id number] KENALOG 10 MG ASP/INJ MAJOR JOINTOR BURSA, SHOULDER, H IP,KNEE W/O US GUIDANCE OFFICE [id number] X-RAY EXAM OF KNEE, A/P & LAT KENALOG 10 MG ASP/INJ MAJOR JOINTOR BURSA, SHOULDER, H IP,KNEE W/O US GUIDANCE OFFICE [id number] OFFICE [id number] KENALOG 10 MG ASP/INJ MAJOR JOINTOR BURSA, SHOULDER, H IP,KNEE W/O US GUIDANCE Xray Exam, Hip, Unilat, Two Or Three Vie ws OFFICE [id number] KENALOG 10 MG ASP/INJ MAJOR JOINTOR BURSA, SHOULDER, H IP,KNEE W/O US GUIDANCE Advance Directives Directive Yes / No Effective Date File Name No Information Encounters Encounter Description Practice Location Reason(s) For Visit Diagnoses Date Provider Providers Copied on Encounter [facility], [address], [place], [place], [address], [place] tel:[phone] [facility] knee (chief complaint) [facility], [facility] [address], [place], [place], [address] , [place]. tel:[phone] Referring Provider: Ginny Everett, [address], [place], [address] . tel:[phone] [facility], [address], [place], [place], [address], [place] tel:[phone] [facility] No Information [facility]. [address], [place], [place], [address] , [place]. tel: [phone] [facility], [address], [place], [place], [address], [place] tel:[phone] [facility] knee (chief complaint) Status post total knee replacement, right [facility]. [address], [place], [place], [address] , [place]. tel: [phone] Referring Provider: [address], [place], [address] . tel:[phone] [facility], [address], [place], [place], [address], [place] tel:[phone] [facility] Pain, joint, knee, right [facility]. [address], [place], [place], [address] , [place]. tel: [phone] [facility], [address], [place], [place], [address], [place] tel:[phone] [facility] knee (chief complaint) Status post total knee replacement, right [facility]. [address], [place], [place], [address] , [place]. tel: [phone] Referring Provider: [address], [place], [address] . tel:[phone] [facility], [address], [place], [place], [address], [place] tel:[phone] [facility] No Information [facility]. [address], [place], [place], [address] , . tel:[phone] Referring Provider: [address], [place], [address] . tel:[phone] OFFICE VZRKQ-MIW-GEA ANDED [facility], [address], [place], [place], [address], [place] tel:[phone] [facility] knee (chief complaint) Primary osteoarthritis of right knee [facility]. [address], [place], [place], [address] , [place]. tel:[phone] Referring Provider: [address], [place], [address] . tel:[phone] OFFICE VYHOR-STQ-RVG ANDED [facility], [address], [place], [place], [address], [place] tel:[phone] [facility] knee (chief complaint) Primary osteoarthritis of right knee [facility]. [address], [place], [place], [address] , [place]. tel:[phone] Referring Provider: [address], [place], [address] . tel:[phone] [facility]ICE [facility] [address], [place], [place], [address], [place] tel:[phone] [facility] knee (chief complaint) Primary osteoarthritis of right knee [facility]. [address], [place], [place], [address] , [place]. tel:[phone] Referring Provider: [address], [place], [address] . tel:[phone] OFFICE UMMLM-PVK-LSO ANDED [facility], [facility] [address], [place], [place], [address], tel:[phone] [facility] knee (chief complaint) Primary osteoarthritis of right knee [facility]. [address], [place], [place], [address] , [place]. tel:[phone] Referring Provider: Ginny Everett, [address], [place], [address] . tel:[phone] OFFICE IYDCX-XMF-FNP ANDED [facility], [facility] [address], [place], [place], [address], tel:[phone] [facility] knee (chief complaint) Primary osteoarthritis of right knee [facility]. [address], [place], [place], [address] , [place]. [phone] Referring Provider: Ginny Everett, [address], [place], [address] . tel:[phone] OFFICE MPKXB-DQQ-HTE ANDED [facility], [facility] [address], [place], [place], [address], tel:[phone] [facility] RT Knee (chief complaint) Primary osteoarthritis of right knee [facility]. [address], [place], [place], [address] , [place]. [phone] Referring Provider: Ginny Everett, [address], [place], [address] . tel:[phone] OFFICE MNYZL-URO-RHF ANDED [facility], [facility] [address], [place], [place], [address], tel:[phone] [facility] Left Hip (chief complaint) Trochanteric bursitis of left hip [facility]. [address], [place], [place], [address] , [place]. tel:[phone] Referring Provider: [address], [place], [address] . tel:[phone] OFFICE UMPLU-PRU-YLH [facility], [address], [place], [place], [address], [place] tel:[phone] [facility] Left Hip (chief complaint) Trochanteric bursitis of left hip [facility]. [address], [place], [place], [address] , [place]. tel:[phone] Referring Provider: [address], [place], [address] . tel:[phone] Family History Family Member Type Diagnosis Age At Onset No Information Payers Payer name Insurance type Covered democrat ID Authorkrystin haro(s) MEDICARE MB [id number] [employer] CI [id number] Social History Type Description Quantity Date Captured Comments Alcohol Use Details No Caffeine Use Details Unknown Tobacco Use Status Current non-smoker Smoking Status Never smoker Sex Female Sexual Orientation Straight or heterosexual Gender Identity Female Chief Complaint And Reason For Visit From encounter dated '05/27/2024 10:30'. knee (chief complaint). Description: 2 months posotp right tkir and doing very well without pain orproblems plan ok full activity fu as needed Reason For Referral Reason For Referral No Information Plan Of Treatment Date Type Action Status Referral Referred To: Physical Therapy Ordered: Referrals: Physical Therapy. Evaluate and treat - Level 2 ordered Referral Ordered: X-RAY EXAM OF KNEE, ONE OR TWO VIEWS Right Right ordered Referral Ordered: RADIOLOGIC EXAMINATION, KNEE; THREE VIEWS Bilateral Bilateral ordered Referral Ordered: X-RAY EXAM OF KNEE, ONE OR TWO VIEWS Right ordered Referral Ordered: Xray Exam, Hip, Unilat, Two Or Three Views Left ordered History Of Present Illness Encounter Date Complaint History Of Prese nt Illness knee 2 months posotp right tkir and doing very well without pain or problems plan ok full activity fu as needed knee fu right tkr and doing very well sm red spot getting better plan continue exerciese and therapy fu 1 month knee first psotop rig ht tkr and doing very well xry good position and fixaiotn plan ok khadijah e exercises fu 1 knee 5 years of progr ess righ tknee daily 10/10 pain from djd with difficulty standing walking bending clinbing and no longer helped by nsaids injections and over 6 months of physician diredctred home exercises xrys advanced djd right knee with joitn space loss osteophytes sclerosisi k-l grade 4 imp advanced djd right knee reviewed findings and options pt understnas indicaitons risks and poteneitla complications and wishes to proceed wtih right tkr plan right tkr knee hx total hip and here with daily 6/10 right knee aching pain and stiffness taking otc nsaids xrays advanced medial djd right knee plan reviewed options injection given right knee anticipate right tkr-- 2023[place] to [place] mts coming up knee hx total hip and here with daily 6/10 right knee aching pain and stiffness taking otc nsaids xrays advanced medial djd right knee plan reviewed options injection given right knee anticipate right tkr-- not interested in uni knee hx total hip and here with daily 6/10 right knee aching pain and stiffness taking otc nsaids xrays advanced medial djd right knee plan reviewed options injeciton given right knee fu as needed knee hx total hip and here with daily 6/10 right knee aching pain and stiffness taking otc nsaids xrays advanced medial djd right knee plan reviewed options injeciton given right knee fu as needed RT Knee hx total hip and here with daily 6/10 right knee aching pain and stiffness taking otc nsaids xrays advanced medial djd right knee plan reviewed options injeciton given right knee fu as needed [place]-28-2021 Left Hip History of left total hip and left hip bursitis. Here for examination and evaluation of left hip with daily 3/10 aching pain which is worse with walking. Plan - injection given left hip bursa Followup as needed. Left Hip HX right total h ip and here for examination, evaluation and treatment of new onset stabbing left lateral hip pain 6/10. No right hip pain. X-rays - negative left hip. Impression - trochanteric bursitis left lateral hip. Plan - home exercises and stretching. Injection given left lateral hip bursa. Functional Status Date Functional Assessmen t No Information Instructions Date Instruction Additional Infor kalen doing well ok full a ctivity fu as needed Related to Status post total knee replacement, right Disease process continue exercises a nd therapy fu check 1 month fu early if red spot is worse Related to Status post total knee replacement, right Disease process continue home exerci ses and activity fu check 1month Related to Status post total knee replacement, right Disease process djd by hx exam and x ray plan right tkr advanced djd with pain deformity and failure of conservative rx plan left tkr The patient has clinical and radiographic evidence of degenerative joint disease of the knee. It is causing pain, limp and dysfunction including but not limited to an inability to walk, climb stairs, travel and perform hygiene and activities of daily living. The disease has not responded to conservative measures including but not limited to rest, ice/heat, NSAIDs, exercise therapy and intra-articular injections. The patient understands the natural history of the disease. The patient was given a review of treatment options including continued non-surgical treatment versus srugical treatment. The patient understands the indications, risks and potential complications of each treatment option and having failed conservative treatment now wishes to proceed with surgical total knee replacement. I concur.inj given for temp relief Related to Primary osteoarthritis of right knee Disease process inj givne right knee fu 3 -4 mon ths Related to Primary osteoarthritis of right knee Disease process inj given right knee anticipate tkr Related to Primary osteoarthritis of right knee Disease process inj given riht knee Related to P rimary osteoarthritis of right knee Disease process inj given right knee Related to Primary osteoarthritis of right knee Disease process injeciton given righ t knee fu as needed Related to Primary osteoarthritis of right knee Disease process Reviewed findings an d options - injection given left hip bursa Related to Trochanteric bursitis of left hip Disease process Injection given Home exercisesF/U as needed Related to Trochanteric bursitis of left hip Disease process Assessments Type Assessment Date assessment Status post total knee replaceme nt, right Mental Status Date Cognitive Assessment Orientation - [place] ed to time, place, person, situation. Patient Care Teams Name Effective Dates (start - stop) Status Members No Information
--- OUTSIDE RECORDS SUMMARY | 2024-08-11 15:12 | XMS_ITS | Referral Summary ---
Author Organization [facility] [employer] Address [address] [place] [address] Care Team Providers Care Java Developer Consultant Name Role Phone Jean Lezama MD Primary Care Provider [phone] Source Comments [facility] [employer],non-owned Affiliates and Associated Physician Practices is amultiple site organization consisting of ambulatory clinics and hospital sitesin [place], [place], [place] and [place]. This disclosure is being madepursuant to the Care Everywhere program and may not contain all information available regarding this patient. Last updated 03/23/18.6[employer] Allergies No known active allergies Medications * [...] Date Acute pain of right knee 03/13/2024 Social History Tobacco Use Types Packs/Day Years [...] and heating? Not hard at all 03/13/2024 [facility] of Occupat ional Health - Occupational Stress [...] place to sleep or slept in a skilled nursing (including now)? No 03/13/2024 Sex and Gender [...] Mass Index 36.95 03/13/2024 6:17 AM CDT Functional Status Functional Status Response Date of Assess ment Is person deaf or have serious hearing difficult y? No 03/13/2024 Is person blind or have serious difficulty seein g? No 03/13/2024 Does person have serious dif ficulty walking/climbing stairs? Yes 03/13/2024 Does person have difficulty dressing/bathing? Ye s 03/13/2024 Does person have difficulty doing errands alone? Yes 03/13/2024 Cognitive Status Response Date of Assessm ent Does person have difficulty concentrating/remembering/making decisions? No 03/13/2024 Plan of Treatment Not on file Goals Goal Patient Goal Type Associated Problems Recent Progress Patient-Stated? Author Help patient manage total joint replacement - knee General No Taylor Nguyen, RN Note: D/C return home with spouse and [facility]; Spouse will provide transportation at D/C. Medical Devices Implanted Type Area Dewer Device Identifier Shelf Expiration Date Model / Serial / Lot Cmnt Bone Plc R 40gm Hvisc Grn Implanted:Qty: 1 on 03/13/2024 by Ginny Everett MD at [facility] Right: Knee Heraeus Kulzer Jelenko 06/01/2028 [id number] / / [id number] Cmpnt Fem Kn Rt Cr Cmnt Prm Vngrd Intlk Implanted:Qty: 1 on 03/13/2024 by Ginny Everett MD at [facility] Right: Knee [employer] 12/05/2033 [id number] / / [id number] Cmpnt Ptlr 31mm 1 Pg Wire Ascnt Arcm Kn Implanted:Qty: 1 on 03/13/2024 by Ginny Everett MD at [facility] Right: Knee [employer] 06/22/2027 [id number] / / [id number] Tray Tib 67mm Kn Cocr I Beam Implanted:Qty: 1 on 03/13/2024 by Ginny Everett MD at [facility] Right: Knee [employer] 10/06/2032 [id number] / / [id number] Brng [id number] Vngrd Vivacit-E Kn Ant Stab Implanted:Qty: 1 on 03/13/2024 by Ginny Everett MD at [facility] Right: Knee [employer] 01/21/2029 [id number] / / [id number] Procedures Procedure Name Priority Date/Time Associated Diagnosis Comments GLUCOSE - POINT OF CARE Routine 03/15/2024 8:09 AM CDT from Last 3 Months or Most Recently Relevant to Health Maintenance Results * GLUCOSE - POINT OF CARE (03/15/2024 8:09 AM CDT) [facility] Glucose WB/POC 99 70 - 106 mg/dL 03/15/2024 9:09 AM CDT [facility] Specimen Type Cap Fingerstick 2023 9:09 AM CDT [facility] Blood BLOOD SPECIMEN / Unknown 03/15/2024 8:09 AM CDT 03/15/2024 9:09 AM CDT Ginny Everett MD LAB - POINT OF CARE ORDERABLES [facility] [address] [place] [address] from Last 3 Months or Most Recently Relevant to Health Maintenance Advance Directives Documents on File Type Date Recorded Patient Congressional Assistant Expl anation Adv Directive/Living Will/POA 08/15/2010 12:17 PM * Full Code (Latest Code Status on File) Date Activated Date Inactivated Comments 03/13/2024 6:27 PM 03/15/2024 12:56 PM * Full Code Date Activated Date Inactivated Comments 08/11/2010 11:33 AM 08/14/2010 10:40 PM Care Teams Java Developer Consultant Relationship Specialty Start Date End Date Jean Lezama MD [address] [place] [address] PCP - General Family Medicine 02/08/24
--- OUTSIDE RECORDS SUMMARY | 2024-08-11 15:12 | XMS_ITS | Clinical Summary ---
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 DAVID MCNAMARA MD Active Last Documented On 03/21/2014 11:56AM ; [facility] Note: 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 - Last Documented On 05/08/2012 2:38PM ; [facility] ? OTHERFollow-up needs to follow up with her coil winder for blood in the stool;OK to schedule mammogram at [facility];OK to schedule BMD here;needs to come back here for a vulvar biopsy sometime yet this year;return in one year for [employer]. - Last Documented On 05/08/2012 2:38PM ; [facility] ? ASYMPT [facility] (to be scheduled) Instructions: last at [facility] on 04/27/2010 with T-scores of 0.6 in the spine and -0.1 in the hip; please send a copy to Dr Escalera also - Last Documented On 05/08/2012 2:38PM ; [facility] ? Cervical Pap SmearLab: THINPREP TIS PAP RFX HPV - Last Documented On 05/08/2012 2:38PM ; [facility] She will let us know if she has any further problems. - Last Documented On 05/08/2012 2:38PM ; [facility] Pending Tests Order Diagnosis Results Due Ordering P rovider Radiology @ other - *MAMMOGRAPHY Mammography Diffus Cystic Mastopathy 05/22/12 DAVID MCNAMARA MD Last Documented On 2 2:28PM ; [facility] Radiology @ other DEXA (to be scheduled) ASYMPT POSTMENO STATUS 05/22/12 DAVID MCNAMARA MD Last Documented On 2 2:28PM ; [facility] Lab THINPREP TIS PAP RFX HPV 06/07/12 DAVID MCNAMARA MD Last Documented On 2 2:38PM ; [facility] Instructions to patient Instructions for patient : B reast Self Exam discussed Last Documented On 2 2:10PM ; [facility] Education and Decision Aids were provided during visit for: Bone Mineral Density Screeni ng guidelines reviewed Last Documented On 2 2:10PM ; [facility] Patient Education: Daily misha cium and vitamin D Last Documented On 2 2:10PM ; [facility] Patient Education: weight be aring exercise Last Documented On 2 2:10PM ; [facility] Colonoscopy screening guidel aldo discussed Last Documented On 2 2:10PM ; [facility] Assessments Includes: Assessments from this encounter Findings - Hemoccult positive stool - Last Documented On 05/08/2012 2:38PM ; [facility] - Breast fibrocystic disease - Last Documented On 05/08/2012 2:38PM ; [facility] - NORMAL FEMALE EXAM - Last Documented On 05/08/2012 2:38PM ; [facility] - Vulvar leukoplakia - Last Documented On 05/08/2012 2:38PM ; [facility] - Screening Malig. Neoplasm Rectum - Last Documented On 05/08/2012 2:38PM ; [facility] Instructions Includes: Instructions from this encounter Instructions to patient Instructions for patient : B reast Self Exam discussed Last Documented On 2 2:10PM ; [facility] Education and Decision Aids were provided during visit for: Bone Mineral Density Screeni ng guidelines reviewed Last Documented On 2 2:10PM ; [facility] Patient Education: Daily misha cium and vitamin D Last Documented On 2 2:10PM ; [facility] Patient Education: weight be aring exercise Last Documented On 2 2:10PM ; [facility] Colonoscopy screening guidel aldo discussed Last Documented On 2 2:10PM ; [facility] Medical Equipment - Implanted Devices Includes: Current Devices No Medical Equipment Recorded Medications Includes: Medications discussed during this encounter and other current Medications Discontinued / Stopped on this date on 05/05/2011 Levothyroxine Sodium 100 MCG OR TABS Prov ider: Diagnosis: Last Documented On 05/08/2012 1:47PM By GRAEME AREVALO LPN ; [facility] Current Medications (continue as prescribed) Levothyroxine Sodium 100 MCG OR TABS 01/15/2014 Prov ider: Diagnosis: Last Documented On 03/21/2014 11:17AM By GRAEME AREVALO LPN ; [facility] Fluocinonide 0.05% EX CREA 06/04/2012 Provider: Diagnosis: Last Documented On 03/21/2014 11:17AM By GRAEME AREVALO LPN ; [facility] Fish Oil OIL 05/08/2012 Provider: Diagnosis: Last Documented On 05/08/2012 1:48PM By GRAEME AREVALO LPN ; [facility] Lisinopril-hydroCHLOROthiazide 20-12.5 MG TABS 011 Provider: Diagnosis: Last Documented On 05/05/2011 1:02PM By HIRA CAUSEY RN ; [facility] Vitamin D3 1000 UNIT OR CAPS 05/05/2011 Provider : Diagnosis: TWO DAILY Last Documented On 05/05/2011 1:06PM By HIRA CAUSEY RN ; [facility] Colace 100 MG OR CAPS 05/05/2011 Provider: Diagnosis: TWO BID Last Documented On 05/05/2011 1:07PM By HIRA CAUSEY RN ; [facility] Simvastatin 40 MG OR TABS 05/05/2011 Provider: Diagnosis: Last Documented On 05/05/2011 1:07PM By HIRA CAUSEY RN ; [facility] Calcium + D 315-200 MG-UNIT OR TABS 05/05/2011 Provi jatin: Diagnosis: Last Documented On 05/05/2011 1:01PM By HIRA CAUSEY RN ; [facility] Omeprazole 20 MG OR CPDR 05/05/2011 Provider: Diagnosis: Last Documented On 05/05/2011 1:00PM By HIRA CAUSEY RN ; [facility] Past Medications on file Fluocinonide 0.05% EX CREA 03/21/2014 - 05/20/2014 Pro vider: DAVID MCNAMARA MD Diagnosis: LICHENIFICATION Lidex 0.05% cream; Disp: 60 g cream; Sig: apply to affected area 2 x per week. Last Documented On 03/21/2014 11:56AM By DAVID MCNAMARA MD ; [facility] Medications Administered Includes: Administered Medications from this encounter No Administered Medications Recorded Vital Signs Includes: Vital Signs from this encounter Vital Name 05/08/2012 02:00P Blood Pressure Sitting (mmHg) 124/78 Height (in) 62.75 Weight (lb) 217 Body Mass Index (kg/m2) 38.7 Body Surface Area (m2) 2.0 Last Documented: On 05/08/2012 1:51PM ; [facility] Results Includes: Results discussed during this encounter No Results Recorded For Specified Dates History of Present Illness Includes: History of Present Illness from this encounter BONITA PENDLETON is a 66 year old female. - Vulvar itching or burning CHRNOIC. REPORTS IT'S BEEN GOING ON FOREVER . USE TO HAVE AN EXPENSIVE CREAM SHE USED THAT HELPED IT A LONG TIME AGO.-- doesn't remember which one worked: premarin, triamcinolone, or lotrisone - Vaginal itching or burning -- itching inside also. No discharge - Vaginal dryness Social History Description Last Updated Pt prefers to be called: ROBERTO 2 Last Documented On 2 2:38PM ; [facility] Caffeine use 2 CUPS OF COFFEE A DAY ~ OC C SODA ~ OCC TEA 05/08/2012 Last Documented On 2 2:38PM ; [facility] Marital history 05/05/2011 Last Documented On 2 1:35PM ; [facility] Non-smoker 05/05/2011 Last Documented On 2 1:35PM ; [facility] Not exercising regularly 05/05/2011 Last Documented On 2 1:35PM ; [facility] Not using alcohol 05/05/2011 Last Documented On 2 1:35PM ; [facility] Not using drugs 05/05/2011 Last Documented On 2 1:35PM ; [facility] Smoking Status Unknown Procedures and Surgical History Includes: Procedures from this encounter Procedures Code Diagnosis Performing Provider Service L ocation Service Date Clinical summary provided to patient Last Documented On 2 2:10PM ; [facility] cervical Pap smear 73651 Last Documented On 2 2:10PM ; [facility] FIT Test-Fecal Occult was positive 95105 Last Documented On 2 2:29PM ; [facility] Surgical History Last Updated Replacement of a hip 05/05/2011 Last Documented On 2 1:35PM ; [facility] Replacement of the right hip at [facility] on 08/11/2010 05/05/2011 Last Documented On 2 1:35PM ; [facility] No Bilateral salpingo-oophorectomy 05/05 Last Documented On 2 1:35PM ; [facility] No Breast Biopsy 05/05/2011 Last Documented On 2 1:35PM ; [facility] No Dilation + Curettage 05/05/2011 Last Documented On 2 1:35PM ; [facility] No Ectopic surgery 05/05/2011 Last Documented On 2 1:35PM ; [facility] No Endometrial Ablation 05/05/2011 Last Documented On 2 1:35PM ; [facility] No history of appendectomy 05/05/2011 Last Documented On 2 1:35PM ; [facility] No history of cholecystectomy 05/05/2011 Last Documented On 2 1:35PM ; [facility] No history of Loop electrode excision of cervix (LEEP) 05/05/2011 Last Documented On 2 1:35PM ; [facility] No history of total abdominal hysterecto my 05/05/2011 Last Documented On 2 1:35PM ; [facility] No history of tubal ligation 05/05/2011 Last Documented On 2 1:35PM ; [facility] No history of vaginal hysterectomy 05/05 Last Documented On 2 1:35PM ; [facility] No Laparoscopic Hysterectomy 05/05/2011 Last Documented On 2 1:35PM ; [facility] No Ovarian Cystectomy 05/05/2011 Last Documented On 2 1:35PM ; [facility] No Tonsillectomy 05/05/2011 Last Documented On 2 1:35PM ; [facility] Medical History Includes: Medical History addressed during this encounter Description Last Updated Patient recently had a dexa scan 010 03/21/2014 Last Documented On 2 1:35PM ; [facility] PRIMARY CARE PROVIDER : MYRA ESCALERA 2011 Last Documented On 2 2:38PM ; [facility] Last mammogram date: 05/07/2011 05/08/20 12 Last Documented On 2 2:38PM ; [facility] Last pap smear date 05/05/2011 2 Last Documented On 2 2:38PM ; [facility] Result: normal AMH 05/08/2012 Last Documented On 2 2:38PM ; [facility] LMP: 10/31/1998 05/05/2011 Last Documented On 2 1:35PM ; [facility] Result: normal 05/05/2011 Last Documented On 2 1:35PM ; [facility] No history of cervical dysplasia 011 Last Documented On 2 1:35PM ; [facility] No history of human papilloma virus infe ction 05/05/2011 Last Documented On 2 1:35PM ; [facility] No history of urinary tract infection Last Documented On 2 1:35PM ; [facility] No history of vaginitis 05/05/2011 Last Documented On 2 1:35PM ; [facility] Aborta 1 05/05/2011 Last Documented On 2 1:35PM ; [facility] 3 05/05/2011 Last Documented On 2 1:35PM ; [facility] Para 2 05/05/2011 Last Documented On 2 1:35PM ; [facility] Vaginal delivery 05/05/2011 Last Documented On 2 1:35PM ; [facility] Family History Includes: Family History addressed during this encounter Description Last Updated Family history of malignant neoplasm of the large intestine -- pt's mat grand father at an older age 1105/05/2011 Last Documented On 2 1:35PM ; [facility] First child named MALE BABY 08/26/7008/2010 Last Documented On 2 1:35PM ; [facility] Second child named MALE BABY 07/16/8008/2010 Last Documented On 2 1:35PM ; [facility] Family history of hypercholesterolemia P ATIENT 05/05/2011 Last Documented On 2 1:35PM ; [facility] Family history of hypertension PATIENT 1 07/05/2010 Last Documented On 2 1:35PM ; [facility] Heart disease MOTHER AND FATHER 05/05/20 11 Last Documented On 2 1:35PM ; [facility] No family history of diabetes mellitus 1 07/05/2010 Last Documented On 2 1:35PM ; [facility] No family history of malignant female br east neoplasm 05/05/2011 Last Documented On 2 1:35PM ; [facility] No family history of malignant neoplasm of the ovary 05/05/2011 Last Documented On 2 1:35PM ; [facility] No family history of uterine cancer 08/2010 Last Documented On 2 1:35PM ; [facility] Review of Systems Includes: Review of Systems from this encounter Gastrointestinal: No nausea and no vomiting. Genitourinary: No change in urinary frequency and no feelings of urinary urgency. No urinary loss of control and no incontinence. No dysuria, no stress incontinence, does not feel like bladder is falling out, and no vaginal pain during intercourse. No unexplained vaginal bleeding. Musculoskeletal: No arthralgias and no localized joint swelling. Psychological: No anxiety, no depression, and no sleep disturbances. Mental Status Includes: Mental Status from this encounter Description No anxiety Functional Status Includes: Functional Status from this encounter No Functional Status Recorded Physical Exam Includes: Physical Exam from this encounter Allergies Includes: Active Allergies No Known Allergies Encounters Encounter Provider Location Date Check-In Time Check-Out Time Diagnosis ANNUAL GROUP LEADER SEMICONDUCTOR PROCESSING EXAM DAVID MCNAMARA MD [facility] BRUSH POLISHER 05/08/20 12 1:31PM 2:42PM Screening Malig. Neoplasm Rectum,Normal Female Exam,Vulvar Leukoplakia,Marcy ast Fibrocystic Disease,Hemoccu lt Positive Stool Clinical Notes Includes: Clinical Notes from this encounter No Clinical Notes Recorded
--- OUTSIDE RECORDS SUMMARY | 2024-08-11 15:12 | XMS_ITS | Patient Health Summary ---
Author Organization [facility] Address [address] [place] [address] Care Team Providers Care Floatman Name Role Phone Jean Lezama MD Primary Care Provider [phone] Note from [facility],non-owned Affiliates and Associated Physician Practices is amultiple site organization consisting of ambulatory clinics and hospital sitesin [place], [place], [place] and [place]. This disclosure is being madepursuant to the Care Everywhere program and may not contain all information available regarding this patient. Last updated 18.[facility] Allergies No known active allergies Medications * Be aware that medications may not be up to date on this document. Alwaysverify current medications with the patient. * lisinopril-hydrochlorothiazide (PRINZIDE; ZESTORETIC) 20-12.5 MG tablet (Started 07/29/2010) Take 1 (one) tablet by mouth once daily after breakfast Instructed to take AM of surgery * atorvastatin (LIPITOR) 20 MG tablet Take 1 (one) tablet by mouth at bedtime * omeprazole (PRILOSEC) 20 MG capsule Take 1 (one) capsule by mouth at bedtime * levothyroxine (SYNTHROID) 100 MCG tablet Take 1 (one) tablet by mouth daily before breakfast * metFORMIN (Glucophage) 500 MG tablet(Started 01/31/2024) Take 1 (one) tablet by mouth once daily * oxyCODONE-acetaminophen (Percocet) 7.5-325 MG tablet(Started 03/14/2024) Take 1 (one) tablet by mouth every 6 hours as needed for Pain * aspirin EC (Ecotrin) 81 MG tablet(Started 03/14/2024) Take 1 (one) tablet by mouth 2 times daily Active Problems Problem Noted Date Diagnosed Date [...] and heating? Not hard at all 03/13/2024 [facility] Occupat ional [facility] - Occupational Stress [...] place to sleep or slept in a alf (including now)? 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 Device Identifier Shelf Expiration Date Model / Serial / Lot Cmnt Bone Plc R 40gm Hvisc Grn Implanted:Qty: 1 on 03/13/2024 by Ginny Everett MD at [facility] Right: Knee Jeanne Rigginslzer Devontelenko 06/01/2028 [id number] / / [id number] Cmpnt Fem Kn Rt Cr Cmnt Prm Vngrd Intlk Implanted:Qty: 1 on 03/13/2024 by Ginny Everett MD at [facility] Right: Knee [employer] 12/05/2033 [id number] / / [id number] Cmpnt Ptlr 31mm 1 Pg Wire Ascnt Arcm Kn Implanted:Qty: 1 on 03/13/2024 by Ginny Everett MD at [facility] Right: Knee [employer] 06/22/2027 [id number] / / [id number] Tray Tib 67mm Kn Cocr I Beam Implanted:Qty: 1 on 03/13/2024 by Ginny Everett MD at [facility] Right: Knee [employer] 10/06/2032 [id number] / / [id number] Brng 28v80eo Vngrd Vivacit-E Kn Ant Stab Implanted:Qty: 1 on 03/13/2024 by Ginny Everett MD at [facility] Right: Knee [employer] 01/21/2029 [id number] / / [id number] Procedures * IMAGING/RADIOLOGY/XRAY RESULTS ORDER(Performed 03/19/2024) * CARDIAC EKG ORDER(Performed 03/19/2024) * GLUCOSE - POINT OF CARE(Performed 03/15/2024) * GLUCOSE - POINT OF CARE(Performed 03/14/2024) * GLUCOSE - POINT OF CARE(Performed 03/14/2024) * GLUCOSE - POINT OF CARE(Performed 03/14/2024) * GLUCOSE - POINT OF CARE(Performed 03/14/2024) * GLUCOSE - POINT OF CARE(Performed 03/13/2024) * GLUCOSE - POINT OF CARE(Performed 03/13/2024) * GLUCOSE - POINT OF CARE(Performed 03/13/2024) * ENDOTRACHEAL TUBE NOTE(Performed 03/13/2024) * TX TOTAL KNEE REPLACEMENT(Performed 03/13/2024) * BASIC METABOLIC PANEL (CALCIUM TOTAL)(Performed 03/13/2024) Performed for Pre-op evaluation * HGB HCT PANEL(Performed 08/13/2010) * BLOOD GASES ARTERIAL(Performed 08/12/2010) * HGB HCT PANEL(Performed 08/12/2010) * PT-INR(Performed 08/11/2010) * CARDIAC EKG ORDER(Performed 07/30/2010) * URINALYSIS REFLEX MICROSCOPIC REFLEX CULTURE(Performed 07/29/2010) Performed for Preoperative examination * CBC W AUTO DIFFERENTIAL(Performed 07/29/2010) Performed for Preoperative examination * COMPREHENSIVE METABOLIC PANEL(Performed 07/29/2010) Performed for Preoperative examination * CULTURE URINE(Performed 07/29/2010) Results * IMAGING RADIOLOGY XRAY RESULTS ORDER (03/19/2024 1:59 PM CDT) Anatomical Region Laterality Modality Other Narrative 03/19/2024 1:59 PM CDT Ordered by an unspecified provider. Scanned Document IMAGING * CARDIAC EKG ORDER (03/19/2024 10:49 AM CDT) Only the most recent of2 resultswithin the time period is included. Narrative 03/19/2024 10:49 AM CDT Ordered by an unspecified provider. Scanned Document CARDIAC SERVICES ORD ERABLES * GLUCOSE - POINT OF CARE (03/15/2024 8:09 AM CDT) Only the most recent of8 resultswithin the time period is included. Glucose WB/POC 99 70 - 106 mg/dL 03/15/2024 9:09 AM CDT [facility] Specimen Type Cap Fingerstick 2023 9:09 AM CDT [facility] Blood BLOOD SPECIMEN / Unknown 03/15/2024 8:09 AM CDT 03/15/2024 9:09 AM CDT Ginny Everett MD LAB - POINT OF CARE ORDERABLES [facility] [address] [place] [address] * ETT LINE PERFORMABLE (03/13/2024 8:12 AM CDT) Narrative Alka Wise APRN-CRNA - 03/13/2024 8:12 AM CDT Alka Wise APRN-CRNA 03/13/2024 8:13 AM Endotracheal Tube Placement: Patient Location: OR. Intubation Event Date/Time: 03/13/2024 8:03 AM Procedure: intubation (32017) Procedure Section: Sedation: under general anesthesia. Indications for Airway Management: anesthesia Induction: standard IV Patient Position: supine Mask Ventilation: easy. Blade Type: Video Blade Size: 3 Laryngoscopy View: grade 1 (full cords) Intubation Adjuncts: stylet Tube: endotracheal tube Placement: oral Tube type: cuff - inflated Tube Size (MM): 7 Depth of Insertion (CM): 19 Measured From: teeth Cuff Inflated With: air Number of Attempts: 1. Placement Verified By: direct visualization, bilateral breath sounds and CO2 monitor Tube secured with: adhesive tape. Dentition unchanged? Yes Difficult Airway? No. Procedure Start Time: 03/13/2024 8:03 AM. Staff Section Anesthesia Provider: Alka Wise APRN-CRNA, Performed the procedure Negar Deleon MD GENERAL ANESTHESIA O RDERABLES * (ABNORMAL) BASIC METABOLIC PANEL (CALCIUM TOTAL) (03/13/2024 6:27 AM CDT) Glucose 96 70 - 105 mg/dL 03/13/2024 7:06 AM CDT [facility] Sodium 144 136 - 145 mmol/L 03/13/2024 7:06 AM CDT [facility] Potassium 3.7 3.5 - 5.1 mmol/L 03/13/2024 7:06 AM CDT [facility] Chloride 111(H) 98 - 107 mmol/L 03/13/2024 7:06 AM CDT [facility] CO2 22 22 - 29 mmol/L 03/13/2024 7:06 AM CDT [facility] Calcium 10.4 8.4 - 10.4 mg/dL 03/13/2024 7:06 AM CDT [facility] Anion Gap 11 6 - 16 mmol/L 03/13/2024 7:06 AM CDT [facility] BUN 14 7 - 26 mg/dL 03/13/2024 7:06 AM T [facility] Creatinine 0.77 0.57 - 1.11 mg/dL 03/13/2024 7:06 AM T [facility] eGFR by CKD-EPI 79(L) >=90 mL/min/1.7 3 m2 03/13/2024 7:06 AM T [facility] Blood BLOOD SPECIMEN / Unknown Venipuncture / Unknown 03/13/2024 6:27 AM CDT 03/13/2024 6:48 AM CDT Estela Hagen DO LAB - CHEMISTRY JAMIEE SHANITA Performing Organization Address [facility] Co de Phone Number [facility] [address] [place] [address] * (ABNORMAL) HGB HCT PANEL (08/13/2010 3:00 AM NEW PRODUCT TRAINER) Only the most recent of2 resultswithin the time period is included. Hemoglobin 10.6(L) 12.0 - 16.0 gm/dl [facility] Hematocrit 32.1(L) 36.0 - 48.0 % [facility] BLOOD SPECIMEN / Unknown 08/13/2010 3:00 AM NEW PRODUCT TRAINER 08/13/2010 5:24 AM NEW PRODUCT TRAINER Ginny Everett MD LAB - HEMATOLOGY ORD ERABLES Performing Organization Address City/[facility]/ZIP Co de Phone Number [facility] [address] [place] [phone] * (ABNORMAL) BLOOD GASES ARTERIAL (08/12/2010 2:10 PM NEW PRODUCT TRAINER) pH Arterial 7.43(H) 7.38 - 7.42 pH Units [facility] pCO2 Arterial 31(L) 35 - 45 mm Hg [facility] pO2 Arterial 80 80 - 105 mm Hg [facility] O2 Saturation Arterial 96 95 - 98 % [facility] HCO3 Arterial 20(L) 22 - 26 mmol/L [facility] TCO2 Arterial 21(L) 23 - 27 mmol/L [facility] Base Excess Arterial -3 -2 to 3 mmol/L [facility] Hemoglobin Arterial 11.9(L) 12 - 17 g/dl [facility] Hematocrit Arterial 35(L) 38 - 51 % [facility] Glucose 170(H) 70 - 105 mg/dl [facility] Sodium Arterial 134(L) 138 - 146 mmol/L [facility] Potassium Arterial 3.8 3.5 - 4.9 mmol/L [facility] Calcium Ionized 1.20 1.12 - 1.32 mmol/L [facility] Site L Radial [facility] FI O2 Arterial 21 [facility] Skyler's Test Pass [facility] ARTERIAL BLOOD SPECIMEN / Unknown 08/12/2010 2:10 PM NEW PRODUCT TRAINER 08/12/2010 2:39 PM NEW PRODUCT TRAINER Ginny Everett MD LAB - BLOOD GASES OR DERABLES Performing Organization Address [facility] de Phone Number [facility] [address] [place] [phone] * PT-INR (08/11/2010 8:20 AM NEW PRODUCT TRAINER) Pathologist [facility] PT 10.0 9.4 - 11.2 seconds [facility] INR 0.9 SEE BELOW [facility] Comment: 0.9-1.1 Normal 2.0-3.0 Conventional 2.5-3.5 Intensive BLOOD SPECIMEN / Unknown 08/11/2010 8:20 AM NEW PRODUCT TRAINER 08/11/2010 8:27 AM NEW PRODUCT TRAINER Ginny Everett MD LAB - COAGULATION OR DERABLES Performing Organization Address [facility] Co de Phone Number [facility] [address] [place] [address] * URINALYSIS ROUTINE W/REFLEX TO CULTURE (07/29/2010 8:50 AM NEW PRODUCT TRAINER) Color UA YELLOW [facility] Character UA TURBID [facility] Specific Gurley UA 1.016 1.005 - 1.0300 [facility] pH UA 8.5 4.6 - 8.0 pH Units [facility] Leukocyte UA LARGE Negative /ul [facility] Nitrite UA NEGATIVE Negative [facility] Protein UA TRACE Negative mg/dl [facility] Glucose UA NEGATIVE Normal mg/dl [facility] Ketone UA NEGATIVE Negative mg/dl [facility] Urobilinogen UA 1.0 Normal Albaro Units [facility] Bilirubin UA NEGATIVE Negative mg/dl [facility] Blood UA NEGATIVE Negative /ul [facility] WBC UA PACKED <5 /HPF [facility] RBC UA 0-2 <5 /HPF [facility] Epithelial Cell UA 50-100 <5 /HPF [facility] Mucus UA 1+ [facility] Casts UA 2-5 <2 /LPF [facility] Bacteria UA MODERATE [facility] Urine Culture Reflex to culture, /a [id number] [facility] URINE SPECIMEN OBTAINED BY CLEAN CATCH PROCEDURE / Unknown 07/29/2010 8:50 AM NEW PRODUCT TRAINER 07/29/2010 10:05 AM NEW PRODUCT TRAINER Ginny Everett MD LAB - URINALYSIS ORD ERABLES [facility] [address] [place] [address] * CULTURE URINE (07/29/2010 8:50 AM NEW PRODUCT TRAINER) Result [facility] Comment: Final CULTURE >100,000 colonies/ml mixed aerobic jomar. MIXED CULTURE,NO FURTHER WORK-UP WILL BE PERFORMED RECOLLECT IF INDICATED If pyelonephritis is suspected call Microbiology at [phone]. URINE SPECIMEN OBTAINED BY CLEAN CATCH PROCEDURE / Unknown 07/29/2010 8:50 AM NEW PRODUCT TRAINER 07/29/2010 10:34 AM NEW PRODUCT TRAINER Narrative Resulting Agency Comment Performed By [facility];[address];[place] [address] Ginny Everett MD LAB - MICROBIOLOGY O RDERABLES [facility] [address] [place] [address] * CBC W AUTO DIFFERENTIAL (07/29/2010 8:50 AM NEW PRODUCT TRAINER) WBC 8.4 4.5 - 11.0 1000/mm3 [facility] RBC 4.72 4.2 - 5.4 10X6 [facility] Hemoglobin 14.5 12.0 - 16.0 gm/dl [facility] Hematocrit 43.4 36.0 - 48.0 % [facility] MCV 91.9 80.0 - 99.0 fl [facility] MCH 30.7 25.0 - 31.0 pg [facility] MCHC 33.4 32.0 - 36.0 gm/dl [facility] RDW 12.3 11.5 - 14.5 % [facility] Platelet Count 187 130.0 - 400.0 1000/mm3 [facility] Granulocytes % 57.9 40.0 - 70.0 % [facility] Lymphocytes % 28.9 22.0 - 40.0 % [facility] Monocytes % 9.8 2.0 - 10.0 % [facility] Eosinophils % 3.2 0.0 - 6.0 % [facility] Basophils % 0.2 0.0 - 3.0 % [facility] Granulocytes Absolute 4.87 1.8 - 7.7 [facility] Lymphocytes Absolute 2.43 1.0 - 5.4 [facility] Monocytes Absolute 0.82 0.1 - 1.1 [facility] Eosinophils Absolute 0.27 0.0 - 0.7 [facility] Basophils Absolute 0.02 0.0 - 0.2 [facility] Comment Manual Diff Not Indicated [facility] BLOOD SPECIMEN / Unknown 07/29/2010 8:50 AM NEW PRODUCT TRAINER 07/29/2010 10:02 AM NEW PRODUCT TRAINER Ginny Everett MD LAB - HEMATOLOGY ORD ERABLES Performing Organization Address City/[facility]/ZIP Co de Phone Number [facility] [address] [place] [address] * (ABNORMAL) COMPREHENSIVE METABOLIC PANEL (07/29/2010 8:50 AM NEW PRODUCT TRAINER) BUN 14 7.0 - 17.0 mg/dl [facility] Sodium 142 137 - 145 mmol/L [facility] Potassium 4.6 3.6 - 5.0 mmol/L [facility] Chloride 105 98.0 - 107.0 mmol/L [facility] Glucose 96 70 - 105 mg/dl [facility] Creatinine 0.7 0.52 - 1.05 mg/dl [facility] AST 29 14.0 - 36.0 U/L [facility] Alkaline Phosphatase 68 38.0 - 126.0 U/L [facility] Calcium 10.5(H) 8.4 - 10.2 mg/dl [facility] Bilirubin Total 0.4 0.2 - 1.3 mg/dl [facility] Albumin 4.1 3.5 - 5.0 gm/dl [facility] Protein Total 7.4 6.3 - 8.2 gm/dl [facility] CO2 30 22.0 - 30.0 mEq/L [facility] ALT 24 9.0 - 52.0 U/L [facility] eGFR by MDRD 84.51 ml/min/1.7 3m2 [facility] BLOOD SPECIMEN / Unknown 07/29/2010 8:50 AM NEW PRODUCT TRAINER 07/29/2010 10:02 AM NEW PRODUCT TRAINER Ginny Everett MD LAB - CHEMISTRY CASH DIEHL [facility] [address] [place] [address] Care Teams Floatman Relationship Specialty Start Date End Date Jean Lezama [place] [address] [place] [address] PCP - General Family Medicine 02/08/24
--- OUTSIDE RECORDS SUMMARY | 2024-08-11 15:12 | XMS_ITS | Referral Summary ---
Author Organization [facility] [address] Address [address] [place] [address] Phone Care Team Providers Care [employer] Appliance Tech Name Role Phone Tory Hoyt MD Unavailable Jean Lezama MD Primary Care Provider [phone] Encounters Date Type Department Care Team Description 05/27/2024 12:55 PM PARK LANDSCAPE ARCHITECT - 05/27/2024 11:59 PM PARK LANDSCAPE ARCHITECT Hospital Encounter [facility] [address] [place] [address] Screening mammogram, encounter for Discharge Disposition: Discharge to home or self care from Last 3 Months Allergies No known active allergies Medications lisinopril-hydroCHL OROthiazide (PRINZIDE,ZESTORETI C) 20-12.5 mg per tablet Take one by mouth one time per day 90 3 05/07/20 07 Active levothyroxine (SYNTHROID, LEVOTHROID) 100 mcg tablet Take one by mouth one time per day 90 3 06/25/20 07 Active atorvastatin (LIPITOR) 20 mg tablet take 1 tablet by oral route every day 0 0 07/10/19 15 Active omeprazole (PriLOSEC) 20 mg capsule take 1 capsule by oral route every day 30 minutes to 1 hour before a meal 0 0 07/10/19 15 Active triamcinolone (KENALOG) 0.5 % ointmentIndications :Lichen sclerosus et atrophicus Apply topically 2 (two) times a day To affected area as needed. 30 g 3 09/18/19 19 Active Additional Information Patient not taking.Reported on 12/23/2021 acetaminophen ER (TYLENOL) 650 mg 8 hr tablet Take 650 mg by mouth 2 (two) times a day Active clobetasol (TEMOVATE) 0.05 % ointmentIndications :Vulvar lesion,Vulvar intraepithelial neoplasia (YI) Apply thin layer nightly for two weeks, then after, three times per week 45 g 2 10/19/19 19 Active Additional Information Patient not taking.Reported on 12/23/2021 penicillin v potassium (VEETID) 500 mg tablet Take 500 mg by mouth 4 (four) times a day Active Active Problems Problem Noted Date Diagnosed Date Incomplete uterovaginal prolapse 12/17/2018 Cystocele, midline 12/17/2018 Pelvic floor dysfunction in female 12/17/2018 Obesity (BMI 30-39.9) 09/17/2018 Gastroesophageal reflux disease 07/10/2014 Overview (10/06/2016): ESOPHAGEAL REFLUX Hypercholesterolemia 07/10/2014 Overview (10/06/2016): Elevated cholesterol Hypertension 07/10/2014 Overview (10/06/2016): Hypertension Hypothyroidism 11/16/2013 Overview (10/05/2016): HYPOTHYROIDISM NOS Immunizations Name Administration Dates Next Due Td, adsorbed 05/12/2008 Social History Tobacco Use Types Packs/Day Years Used Date Smoking Tobacco: Never Smokeless Tobacco: Never Alcohol Use Standard Drinks/Week Comments No 0 (1 standard drink = 0.6 oz pur e alcohol) Exercise Vital Sign Answer Date Recorde d Days of Exercise per Week 0 days 2018 Minutes of Exercise per Session 0 min 12/17/2018 Comments No Sex and Gender Information Value Date Recorded Sex Assigned at Not on file Legal Sex Female 11:54 PM PARK LANDSCAPE ARCHITECT Gender Identity Not on file Sexual Orientation Not on file Last Filed Vital Signs Vital Sign Reading Time Taken Comments Blood Pressure 132/64 12/23/2021 3:49 PM CDT Pulse 86 12/23/2021 3:49 PM CDT Temperature 37.6 C (99.6 F) 12/23/2021 3:49 PM CDT Respiratory Rate 16 12/23/2021 3:49 PM CDT Oxygen Saturation 97% 12/23/2021 3:49 PM CDT Inhaled Oxygen Concentration - - Weight 99.8 kg (220 lb) 12/23/2021 3:49 PM CDT Height 157.5 cm (5' 2 ) 05/27/2024 1:00 PM PARK LANDSCAPE ARCHITECT Body Mass Index 40.24 12/23/2021 3:49 PM CDT Plan of Treatment Not on file Procedures Procedure Name Priority Date/Time Associated Diagnosis Comments SCREENING MAMMOGRAM BILATERAL W CASE Schedule Routine, Read Routine (OP Routine) 05/27/2024 1:09 PM PARK LANDSCAPE ARCHITECT Screening mammogram, encounter for COLONOSCOPY 12/13/2013 12:00 AM CDT from Last 3 Months or Most Recently Relevant to Health Maintenance Results * Screening Mammogram Bilateral W Case (05/27/2024 1:09 PM PARK LANDSCAPE ARCHITECT) Anatomical Region Laterality Modality Breast Bilateral Mammography 05/27/2024 1:54 PM PARK LANDSCAPE ARCHITECT Impressions 05/27/2024 1:54 PM PARK LANDSCAPE ARCHITECT There is no mammographic evidence to suggest malignancy. The patient may continue screening mammography as per ACR guidelines. FINAL ASSESSMENT: BI-RADS Category 1: Negative. Electronically signed by: Constance Zavaleta M.D. Narrative 05/27/2024 1:54 PM PARK LANDSCAPE ARCHITECT EXAMINATION: BILATERAL SCREENING MAMMOGRAM WITH TOMOGRAPHY HISTORY: Screening. COMPARISON(S): 2022, 2021, and 2020 TECHNIQUE: Full-field 2D images and digital tomosynthesis images were obtained. CAD was utilized. BREAST PARENCHYMAL COMPOSITION: The breasts are almost entirely fatty. FINDINGS: There are no suspicious masses. No suspicious calcifications are seen. There is no unexplained architectural distortion. There is no skin thickening seen. There are no mammographically abnormal lymph nodes seen in the axillae or elsewhere. us Self Screening Mammogram IMG MAMMO PROCEDURES Fi nal Result * COLONOSCOPY (12/13/2013 12:00 AM CDT) Anatomical Region Laterality Modality Other Narrative 12/13/2013 12:00 AM CDT Ordered by an unspecified provider. Procedure Note Provider, MD Jones - 12/13/2013 12:00 AM CDT PROCEDURE REPORT Patient: LOREN PENDLETON Account: [id number] Room No: : 1945 Patient Type: SDS Attend.: Alexis Fermin M.D. Admit Date: 12/13/2013 Dict.: Alexis Fermin M.D. Disch. Date: 12/13/2013 NAME OF PROCEDURE: Colonoscopy. DATE OF PROCEDURE: 12/13/2013 REFERRED BY: Elissa Blackman M.D. PREVIOUS PROCEDURE: Negative screening colonoscopy in the past. X-RAYS: None. HISTORY AND PHYSICAL EXAMINATION: The patient is a 68-year-old whitefemale referred back now for repeat endoscopic evaluation and screeningcolonoscopy. Patient denies any changes in her health and she is otherwise doingclinically well. PHYSICAL EXAMINATION: Today is that of a well-developed, well-nourishedwhite female in no acute distress. She is nonicteric. Lungs are clear. Heartwas regular. GI: Soft and supple. Extremities showed no calf pain, cordsor edema. PREPROCEDURE DIAGNOSIS: Screening colonoscopy in a 68-year-old female. INSTRUMENT USED: Olympus videoendoscope. MEDICATIONS: Per Anesthesia. FINDINGS: The colonoscope was introduced into the rectum, left lateral position, and passed to the cecum. The patient tolerated the procedurewell. There were no complications. In the proximal right colon, there were 2polyps. Both were picked up, hot biopsied, and destroyed. The remainder of thececum, right transverse, and left colons were normal. The rectosigmoid showed diverticulosis, no evidence of diverticulitis. The rectum itself wasnormal. Patient had moderate to moderately large internal hemorrhoids. Thepatient had one polypoid area at the dentate line. Whether this was a hemorrhoidaltag versus a true polyp is uncertain. Because of its appearance, it waselected to pick it up, cauterize, and destroy it. Patient tolerated this well.Digital exam showed no perianal disease, no rectal masses. Patient did havescarring and some mild anal stenosis. COMPLICATIONS: None. POSTPROCEDURE DIAGNOSES: 1. Colonic polyps with 2 removed from the right colon and one cauterizedin the rectum. 2. Otherwise, normal screening colonoscopy of the cecum with withdrawaltime of 8 minutes and 45 seconds. Preparation was excellent. POSTPROCEDURE ORDERS: 1. Post-sedation instructions. 2. High-fiber diet. 3. Check pathology. 4. Repeat colon in 5 years pending path report. 5. Follow up with Dr. Blackman. 6. Follow up in my office, otherwise, will be on a p.r.n. basis. Alexis Fermin M.D. MA/myla TD: 12/15/2013 15:43 CC: Elissa Blackman M.D. Authenticated by Alexis Fermin MD On 12/17/2013 11:07:49 AM Historical Provider MD ENDOSCOPY PROCEDURES Sabrina l Result from Last 3 Months or Most Recently Relevant to Health Maintenance Insurance [employer] SENIOR SUPPLEMENT MEDICARE AETNA SENIOR SUPPLEMENT AET[employer] SENIOR SUPPLEMENT Care Teams [employer] App[employer] Tech Relationship Specialty Start Date End Date eJan Lezama MD [address] [id number] PCP - General 02/02/22 Tory Hoyt MD [address] [id number] Referring Physician Obstetrics and Gynecology 10/24/18
--- OUTSIDE RECORDS SUMMARY | 2024-08-11 15:13 | XMS_ITS | Clinical Summary ---
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 DAVID MCNAMARA MD Active Last Documented On 03/21/2014 11:56AM ; [facility] Note: Unchanged Past Visits Onset Date Resolved Date Provider Condition 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 DAVID LANGSTON MD Active Last Documented On 2 4:16PM ; [facility] 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 DAVID MCNAMARA MD Active Last Documented On 2 4:16PM ; [facility] Plan of Treatment No Plan of Treatment Recorded Assessments Includes: Assessments from this encounter Findings - Cystocele - Last Documented On 03/21/2014 11:56AM ; [facility] - Lichen simplex chronicus - Last Documented On 03/21/2014 11:56AM ; [facility] Medical Equipment - Implanted Devices Includes: Current Devices No Medical Equipment Recorded Medications Includes: Medications discussed during this encounter and other current Medications Discontinued / Stopped on this date on 05/05/2011 Lisinopril 10 MG OR TABS Provider: Diagnosis: Last Documented On 03/21/2014 11:18AM By GRAEME AREVALO LPN ; [facility] New / Renewed during this visit DAVID MCNAMARA MD on 03/21/2014 Fluocinonide 0.05% EX CREA Provider: Gutierrez MCNAMARA MD 30 day supply: 60 gram, 1 refills Diagnosis: LICHENIFICATION Lidex 0.05% cream; Disp: 60 g cream; Sig: apply to affected area 2 x per week. Pharmacy: [facility] [address] , [place], [id number] - Last Documented On 03/21/2014 11:56AM By DAVID MCNAMARA MD ; [facility] Current Medications (continue as prescribed) Levothyroxine Sodium 100 MCG OR TABS 01/15/2014 Prov ider: Diagnosis: Last Documented On 03/21/2014 11:17AM By GRAEME AREVALO LPN ; [facility] Fluocinonide 0.05% EX CREA 06/04/2012 Provider: Diagnosis: Last Documented On 03/21/2014 11:17AM By GRAEME AREVALO LPN ; [facility] Fish Oil OIL 05/08/2012 Provider: Diagnosis: Last Documented On 05/08/2012 1:48PM By GRAEME AREVALO LPN ; [facility] Lisinopril-hydroCHLOROthiazide 20-12.5 MG TABS 011 Provider: Diagnosis: Last Documented On 05/05/2011 1:02PM By HIRA CAUSEY RN ; [facility] Vitamin D3 1000 UNIT OR CAPS 05/05/2011 Provider : Diagnosis: TWO DAILY Last Documented On 05/05/2011 1:06PM By HIRA CAUSEY RN ; [facility] Colace 100 MG OR CAPS 05/05/2011 Provider: Diagnosis: TWO BID Last Documented On 05/05/2011 1:07PM By HIRA CAUSEY RN ; [facility] Simvastatin 40 MG OR TABS 05/05/2011 Provider: Diagnosis: Last Documented On 05/05/2011 1:07PM By HIRA CAUSEY RN ; [facility] Calcium + D 315-200 MG-UNIT OR TABS 05/05/2011 Provi jatin: Diagnosis: Last Documented On 05/05/2011 1:01PM By HIRA CAUSEY RN ; [facility] Omeprazole 20 MG OR CPDR 05/05/2011 Provider: Diagnosis: Last Documented On 05/05/2011 1:00PM By HIRA CAUSEY RN ; [facility] Medications Administered Includes: Administered Medications from this encounter No Administered Medications Recorded Vital Signs Includes: Vital Signs from this encounter Vital Name 03/21/2014 11:13A Blood Pressure Sitting L 120/58 BP Cuff Size Regular Weight (lb) 204 Last Documented: On 03/21/2014 11:20A M ; [facility] Results Includes: Results discussed during this encounter No Results Recorded For Specified Dates History of Present Illness Includes: History of Present Illness from this encounter BONITA PENDLETON is a 68 year old female. 2 weeks ago she noticed a ball of tissue out of the vaginal opening but it went back in on its own. It is just at the opeing. She hasn't figured out what makes it worse. No pain or bleeding. No manipulation to initiate or complete urination or BM's. She uses the Lidex for her lichen sclerosus 2-3 x per week and it relieves the itching 'for a while'. She needs a refill. Social History Description Last Updated Smoking status : Never smoker 03/21/2014 Last Documented On 4 11:56AM ; [facility] Pt prefers to be called: ROBERTO 2 Last Documented On 4 10:56AM ; [facility] Caffeine use 2 CUPS OF COFFEE A DAY ~ OC C SODA ~ OCC TEA 05/08/2012 Last Documented On 4 10:56AM ; [facility] Marital history 05/05/2011 Last Documented On 4 10:56AM ; [facility] Non-smoker 05/05/2011 Last Documented On 4 10:56AM ; [facility] Not using alcohol 05/05/2011 Last Documented On 4 10:56AM ; [facility] Procedures and Surgical History Includes: Procedures from this encounter Procedures Code Diagnosis Performing Provider Service L ocation Service Date Clinical summary provided to patient Last Documented On 4 11:48AM ; [facility] Surgical History Last Updated Replacement of a hip 05/05/2011 Last Documented On 4 10:56AM ; [facility] Replacement of the right hip at [facility] on 08/11/2010 05/05/2011 Last Documented On 4 10:56AM ; [facility] Medical History Includes: Medical History addressed during this encounter Description Last Updated Patient recently had a [facility] with T-scores of -0.4, -0.6, and 0.9; 03/21/2014 Last Documented On 4 11:56AM ; [facility] History of complete colonosc opy 12/12/2013 dr. alvarez. polyps removed. repeat in 5 years 03/21/2014 Last Documented On 4 11:56AM ; [facility] Last mammogram date: 05/18/2012 03/21/20 14 Last Documented On 4 11:56AM ; [facility] History of a screening mammogram was per formed 05/18/2012 03/21/2014 Last Documented On 4 11:56AM ; [facility] History of Pap smear done 05/08/2012 Last Documented On 4 11:56AM ; [facility] Last pap smear date 05/08/2012 2 Last Documented On 4 10:56AM ; [facility] PRIMARY CARE PROVIDER : MYRA ESCALERA 2011 Last Documented On 4 10:56AM ; [facility] Result: normal AMH 05/08/2012 Last Documented On 4 10:56AM ; [facility] LMP: 10/31/1998 05/05/2011 Last Documented On 4 10:56AM ; [facility] Result: normal 05/05/2011 Last Documented On 4 10:56AM ; [facility] Aborta 1 05/05/2011 Last Documented On 4 10:56AM ; [facility] 3 05/05/2011 Last Documented On 4 10:56AM ; [facility] Para 2 05/05/2011 Last Documented On 4 10:56AM ; [facility] Vaginal delivery 05/05/2011 Last Documented On 4 10:56AM ; [facility] Family History Includes: Family History addressed during this encounter Description Last Updated Family history of malignant neoplasm of the large intestine -- pt's mat grand father at an older age 1105/05/2011 Last Documented On 4 10:56AM ; [facility] First child named MALE BABY 08/26/7008/2010 Last Documented On 4 10:56AM ; [facility] Second child named MALE BABY 07/16/8008/2010 Last Documented On 4 10:56AM ; [facility] Family history of hypercholesterolemia P ATIENT 05/05/2011 Last Documented On 4 10:56AM ; [facility] Family history of hypertension PATIENT 1 07/05/2010 Last Documented On 4 10:56AM ; [facility] Heart disease MOTHER AND FATHER 05/05/20 11 Last Documented On 4 10:56AM ; [facility] No family history of diabetes mellitus 1 07/05/2010 Last Documented On 4 10:56AM ; [facility] No family history of malignant female br east neoplasm 05/05/2011 Last Documented On 4 10:56AM ; [facility] No family history of malignant neoplasm of the ovary 05/05/2011 Last Documented On 4 10:56AM ; [facility] No family history of uterine cancer 08/2010 Last Documented On 4 10:56AM ; [facility] Review of Systems Includes: Review of Systems [...] Location Date Check-In Time Check-Out Time Diagnosis PROBLEM VISIT DAVID MCNAMARA MD [facility] 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
--- OUTSIDE RECORDS SUMMARY | 2024-08-11 15:13 | XMS_ITS | Clinical Summary ---
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 DAVID LANGSTON MD Active Last Documented On 2 4:16PM ; [facility] 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 DAVID MCNAMARA MD Active Last Documented On 2 4:16PM ; [facility] Past Visits Onset Date Resolved Date Provider Condition Status Cystocele 03/21/2014 DAVID MCNAMARA MD Active Last Documented On 03/21/2014 11:56AM ; [facility] Note: Unchanged 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 OTHERFollow-up return in 2-3 weeks to review vulvar biopsy results. - Last Documented On 05/14/2012 6:43PM ; [facility] Pending Tests Order Diagnosis Results Due Ordering P oamrder In office procedures - OB Vulvar Biopsy- One Lesion LEUKOPLAKIA OF VAGINA 05/28/12 DAVID MCNAMARA MD Last Documented On 2 8:40AM ; [facility] Education and Decision Aids were provided during visit for: Risks, benefits, and alterna tives to vulvar biopsy are reviewed. Questions answered and pt expresses understanding. 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 Questions answered and pt expresses understanding. Consent is obtained before proceeding with the above biopsy Last Documented On 2 6:33PM ; [facility] Medical Equipment - Implanted Devices Includes: Current Devices No Medical Equipment Recorded Medications Includes: Medications discussed during this encounter and other current Medications Current Medications (continue as prescribed) Levothyroxine Sodium 100 MCG OR TABS 01/15/2014 Prov ider: Diagnosis: Last Documented On 03/21/2014 11:17AM By GRAEME AREVALO LPN ; [facility] Fluocinonide 0.05% EX CREA 06/04/2012 Provider: Diagnosis: Last Documented On 03/21/2014 11:17AM By GRAEME AREVALO LPN ; [facility] Fish Oil OIL 05/08/2012 Provider: Diagnosis: Last Documented On 05/08/2012 1:48PM By GRAEME AREVALO LPN ; [facility] Lisinopril-hydroCHLOROthiazide 20-12.5 MG TABS 011 Provider: Diagnosis: Last Documented On 05/05/2011 1:02PM By HIRA CAUSEY RN ; [facility] Vitamin D3 1000 UNIT OR CAPS 05/05/2011 Provider : Diagnosis: TWO DAILY Last Documented On 05/05/2011 1:06PM By HIRA CAUSEY RN ; [facility] Colace 100 MG OR CAPS 05/05/2011 Provider: Diagnosis: TWO BID Last Documented On 05/05/2011 1:07PM By HIRA CAUSEY RN ; [facility] Simvastatin 40 MG OR TABS 05/05/2011 Provider: Diagnosis: Last Documented On 05/05/2011 1:07PM By HIRA CAUSEY RN ; [facility] Calcium + D 315-200 MG-UNIT OR TABS 05/05/2011 Provi jatin: Diagnosis: Last Documented On 05/05/2011 1:01PM By HIRA CAUSEY RN ; [facility] Omeprazole 20 MG OR CPDR 05/05/2011 Provider: Diagnosis: Last Documented On 05/05/2011 1:00PM By HIRA CAUSEY RN ; [facility] Past Medications on file Fluocinonide 0.05% EX CREA 03/21/2014 - 05/20/2014 Pro vider: DAVID MCNAMARA MD Diagnosis: LICHENIFICATION Lidex 0.05% cream; Disp: 60 g cream; Sig: apply to affected area 2 x per week. Last Documented On 03/21/2014 11:56AM By DAVID MCNAMARA MD ; [facility] Medications Administered Includes: Administered Medications from this encounter No Administered Medications Recorded Vital Signs Includes: Vital Signs from this encounter Vital Name 05/14/2012 08:00A Blood Pressure Sitting (mmHg) 160/78 Height (in) 62.75 Weight (lb) 217 Body Mass Index (kg/m2) 38.7 Body Surface Area (m2) 2.0 Last Documented: On 05/14/2012 8:08AM ; [facility] Results Includes: Results discussed during this encounter No Results Recorded For Specified Dates History of Present Illness Includes: History of Present Illness from this encounter BONITA PENDLETON is a 66 year old female. - No rash on the vulva. 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 Social History No Social History Recorded - Smoking Status Unknown Medical History Includes: Medical History addressed during this encounter Description Last Updated Last pap smear date 05/08/2012 2 Last Documented On 2 6:43PM ; [facility] Family History Includes: Family History addressed during [...] Location Date Check-In Time Check-Out Time Diagnosis PROCEDURE OFFICE DAVID MCNAMARA MD [facility] INTEGRATED PROGRAM TEACHER 05/14/20 12 7:45AM 8:43AM Vulvar Leukoplakia Clinical Notes Includes: Clinical Notes from this encounter No Clinical Notes Recorded
--- OUTSIDE RECORDS SUMMARY | 2024-08-11 15:13 | XMS_ITS | Clinical Summary ---
Author Organization [facility] [address] Address [address] [place] [address] Phone Care Team Providers Care Electrician Deck Name Role Phone Tory Hoyt MD Unavailable Jean Lezama MD Primary Care Provider [phone] Allergies No known active allergies Medications lisinopril-hydroCHL [...] Hypertension Hypothyroidism 11/16/2013 Overview (10/05/2016): HYPOTHYROIDISM NOS Encounters Date Type Department Care Team Description 05/27/2024 12:55 PM SHADE HANGER - 05/27/2024 11:59 PM SHADE HANGER Hospital Encounter [facility] [address] [place] [id number] Screening mammogram, encounter for Discharge Disposition: Discharge to home or self care from Last 3 Months Immunizations Name Administration Dates Next Due Td, adsorbed 05/12/2008 Surgical History Surgery Date Site/Laterality Comments PARATHYROIDECTOMY 07/03/2007 - 07/02/2008 benign TOTAL HIP ARTHROPLASTY 07/03/2010 - 07/02/2011 Right TONSILLECTOMY TOTAL HIP ARTHROPLASTY Right HYSTERECTOMY 08/03/2019 - 08/31/2019 OOPHORECTOMY 08/03/2019 - 08/31/2019 Family History Medical History Relation Name Comments Coronary artery disease Father Dementia Father Heart attack Father Colon cancer Maternal Grandfather Coronary artery disease Mother Heart disease Mother Lung cancer Mother smoker Breast cancer Neg Hx Ovarian cancer Neg Hx Thyroid cancer Neg Hx Relation Name Status Comments Father (Age 82) Maternal Grandfather Mother (Age 80) Social History Tobacco Use Types Packs/Day Years [...] on file Legal Sex Female 11:54 PM SHADE HANGER Gender Identity Not on file Sexual Orientation Not on file Obstetrics History Para Term AB IAB SAB Ectopic Multiple Livin g Live Births 3 2 2 1 1 2 2 Date Outcome GA Total Labor Labor/2nd/3rd Weight Sex Type Anes PTL Heather A1 A5 Name Clin Term Vag-S pont Living Term Vag-S pont Living SAB Last Filed Vital Signs Vital Sign Reading [...] cm (5' 2 ) 05/27/2024 1:00 PM SHADE HANGER Body Mass Index 40.24 12/23/2021 3:49 PM CDT Plan of Treatment Health Maintenance Due Date Last Done Comments Depression Screening 1945 Fall Risk Assessment 1945 Hepatitis C Screening 1945 Osteoporosis Screening-Bone Density Scan 1945 Hepatitis B Screening 1963 Zoster Vaccine (1 of 2) 1996 DTaP/Tdap/Td Vaccine (1 - Tdap) 05/13/2008 8 Pneumococcal vaccine 65+ (1 of 1 - PCV) 11/02/2011 Well Visit 65+ 11/02/2011 Influenza Vaccine (#1) 2024 Colon Cancer Screening-CT Colonography Discontinued 12/13/2013 Colon Cancer Screening-Colonoscopy Discontinued 12/13/2013 Colon Cancer Screening-DNA Stool Discontinued 12/14/19 14 Colon Cancer Screening-FIT Discontinued 12/13/2013 Colon Cancer Screening-FOBT Discontinued 12/13/2013 Colon Cancer Screening-Sigmoidoscopy Discontinued 12/13/2013 Colorectal Cancer Screening Discontinued Breast Cancer Screening-Mammogram Discontinued 05/27/2024, 05/02/2023, 03/21/2022, Additional history exists Procedures Procedure Name Priority Date/Time Associated Diagnosis Comments SCREENING MAMMOGRAM BILATERAL W CASE Schedule Routine, Read Routine (OP Routine) 05/27/2024 1:09 PM SHADE HANGER Screening mammogram, encounter for COLONOSCOPY 12/13/2013 12:00 AM CDT from Last 3 Months or Most Recently Relevant to Health Maintenance Results * Screening Mammogram Bilateral W Case (05/27/2024 1:09 PM SHADE HANGER) Anatomical Region Laterality Modality Breast Bilateral Mammography 05/27/2024 1:54 PM SHADE HANGER Impressions 05/27/2024 1:54 PM SHADE HANGER There is no mammographic evidence to suggest malignancy. The patient may continue screening mammography as per ACR guidelines. FINAL ASSESSMENT: BI-RADS Category 1: Negative. Electronically signed by: Constance Zavaleta M.D. Narrative 05/27/2024 1:54 PM SHADE HANGER EXAMINATION: BILATERAL SCREENING MAMMOGRAM WITH TOMOGRAPHY HISTORY: [...] CDT PROCEDURE REPORT Patient: LOREN PENDLETON Account: [id number] Room No: : 1945 Patient Type: SDS [...] on a p.r.n. basis. Alexis Fermin M.D. LM/myla TD: 12/15/2013 15:43 CC: Elissa Blackman M.D. Authenticated by Alexis Fermin MD On 12/17/2013 11:07:49 AM Historical Provider ENDOSCOPY PROCEDURES Sabrina l Result from Last 3 Months or Most Recently Relevant to Health Maintenance Insurance [employer] SENIOR [facility] MEDICARE [facility] Address: [address] [address] [place] [address] T SENIOR SUPPLEMENT MEDICARE [employer] SENIOR SUPPLEMENT Care Teams Electrician Deck Relationship Specialty Start Date End Date Jean Lezama MD [address] [id number] PCP - General 02/02/22 Tory Hoyt MD [address] [id number] Referring Physician Obstetrics and Gynecology 10/24/18
--- OUTSIDE RECORDS SUMMARY | 2024-08-11 15:13 | XMS_ITS ---
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 DAVID MCNAMARA MD Active Last Documented On 03/21/2014 11:56AM ; [facility] Note: 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 DAVID MCNAMARA MD Active Last Documented On 2 4:16PM ; [facility] 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 DAVID MCNAMARA MD Active Last Documented On 2 4:16PM ; [facility] Plan of Treatment Findings Encounter Date She will let us know if she has any further problems ANNUAL ANIMAL SKINNER EXAM with DAVID MCNAMARA MD 05/08/2012 Last Documented On 2 2:38PM ; [facility] Ordered follow-up visit 1 ye ar or as needed NEW NETWORKING ADMINISTRATOR EXAM with DAVID MCNAMARA MD 05/05/2011 Last Documented On 1 2:52PM ; [facility] Instructions to patient Instructions for patient : B reast Self Exam discussed Last Documented On 2 2:10PM ; [facility] Instructions for patient : B reast Self Exam discussed Last Documented On 1 2:40PM ; [facility] Education and Decision Aids were provided during visit for: Risks, benefits, and alterna tives to vulvar biopsy are reviewed. Questions answered and pt expresses understanding. Consent is obtained before proceeding with the above biopsy Last Documented On 2 6:33PM ; [facility] Bone Mineral Density Screeni ng guidelines reviewed Last Documented On 2 2:10PM ; [facility] Patient Education: Daily misha cium and vitamin D Last Documented On 2 2:10PM ; [facility] Patient Education: weight be aring exercise Last Documented On 2 2:10PM ; [facility] Colonoscopy screening guidel aldo discussed Last Documented On 2 2:10PM ; [facility] Bone Mineral Density Screeni ng guidelines reviewed Last Documented On 1 2:40PM ; [facility] Patient Education: Daily misha cium and vitamin D Last Documented On 1 2:40PM ; [facility] Patient Education: weight be aring exercise Last Documented On 1 2:40PM ; [facility] Colonoscopy screening guidel aldo discussed Last Documented On 1 2:40PM ; [facility] Assessments Includes: Assessments for all patient encounters Findings Encounter Date Cystocele PROBLEM VISIT with DAVID Lewis MD 03/21/2014 Last Documented On 4 11:56AM ; [facility] Lichen simplex chronicus PROBLEM VISIT with DAVID MCNAMARA MD 03/21/2014 Last Documented On 4 11:56AM ; [facility] Lichen simplex chronicus RECHECK with DAVID MORENO MD 06/04/2012 Last Documented On 2 2:46PM ; [facility] 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 Neoplasm Rectum ANNUAL ANIMAL SKINNER EXAM with DAVID MCNAMARA MD 05/08/2012 Last Documented On 2 2:38PM ; [facility] Vulvar leukoplakia ANNUAL ANIMAL SKINNER EXAM with DAVID MANZANARES MD 05/08/2012 Last Documented On 2 2:38PM ; [facility] Breast fibrocystic disease NEW NETWORKING ADMINISTRATOR EXAM with DAVID MCNAMARA MD 05/05/2011 Last Documented On 1 2:52PM ; [facility] NORMAL FEMALE EXAM NEW NETWORKING ADMINISTRATOR EXAM with DAVID LANGSTON MD 05/05/2011 Last Documented On 1 2:52PM ; [facility] Screening Malig. Neoplasm Rectum NEW NETWORKING ADMINISTRATOR EXAM wi th DAVID MCNAMARA MD 05/05/2011 Last Documented On 1 2:52PM ; [facility] Symptomatic menopause --dry vagina NEW NETWORKING ADMINISTRATOR EXAM with DAVID MCNAMARA MD 05/05/2011 Last Documented On 1 2:52PM ; [facility] Instructions Includes: Instructions for all patient encounters Instructions to patient Instructions for patient : B reast Self Exam discussed Last Documented On 2 2:10PM ; [facility] Instructions for patient : B reast Self Exam discussed Last Documented On 1 2:40PM ; [facility] Education and Decision Aids were provided during visit for: Risks, benefits, and alterna tives to vulvar biopsy are reviewed. Questions answered and pt expresses understanding. Consent is obtained before proceeding with the above biopsy Last Documented On 2 6:33PM ; [facility] Bone Mineral Density Screeni ng guidelines reviewed Last Documented On 2 2:10PM ; [facility] Patient Education: Daily misha cium and vitamin D Last Documented On 2 2:10PM ; [facility] Patient Education: weight be aring exercise Last Documented On 2 2:10PM ; [facility] Colonoscopy screening guidel aldo discussed Last Documented On 2 2:10PM ; [facility] Bone Mineral Density Screeni ng guidelines reviewed Last Documented On 1 2:40PM ; [facility] Patient Education: Daily misha cium and vitamin D Last Documented On 1 2:40PM ; [facility] Patient Education: weight be aring exercise Last Documented On 1 2:40PM ; [facility] Colonoscopy screening guidel aldo discussed Last Documented On 1 2:40PM ; [facility] Medical Equipment - Implanted Devices Includes: Current and historical Devices No Medical Equipment Recorded Medications Includes: Current and historical Medications Current Medications (continue as prescribed) Levothyroxine Sodium 100 MCG OR TABS 01/15/2014 Prov ider: Diagnosis: Last Documented On 03/21/2014 11:17AM By GRAEME AREVALO LPN ; [facility] Fluocinonide 0.05% EX CREA 06/04/2012 Provider: Diagnosis: Last Documented On 03/21/2014 11:17AM By GRAEME AREVALO LPN ; [facility] Fish Oil OIL 05/08/2012 Provider: Diagnosis: Last Documented On 05/08/2012 1:48PM By GRAEME AREVALO LPN ; [facility] Lisinopril-hydroCHLOROthiazide 20-12.5 MG TABS 011 Provider: Diagnosis: Last Documented On 05/05/2011 1:02PM By HIRA CAUSEY RN ; [facility] Vitamin D3 1000 UNIT OR CAPS 05/05/2011 Provider : Diagnosis: TWO DAILY Last Documented On 05/05/2011 1:06PM By HIRA CAUSEY RN ; [facility] Colace 100 MG OR CAPS 05/05/2011 Provider: Diagnosis: TWO BID Last Documented On 05/05/2011 1:07PM By HIRA CAUSEY RN ; [facility] Simvastatin 40 MG OR TABS 05/05/2011 Provider: Diagnosis: Last Documented On 05/05/2011 1:07PM By HIRA CAUSEY RN ; [facility] Calcium + D 315-200 MG-UNIT OR TABS 05/05/2011 Provi jatin: Diagnosis: Last Documented On 05/05/2011 1:01PM By HIRA CAUSEY RN ; [facility] Omeprazole 20 MG OR CPDR 05/05/2011 Provider: Diagnosis: Last Documented On 05/05/2011 1:00PM By HIRA CAUSEY RN ; [facility] Past Medications on file Fluocinonide 0.05% EX CREA 03/21/2014 - 05/20/2014 Pro vider: DAVID MCNAMARA MD Diagnosis: LICHENIFICATION Lidex 0.05% cream; Disp: 60 g cream; Sig: apply to affected area 2 x per week. Last Documented On 03/21/2014 11:56AM By DAVID MCNAMARA MD ; [facility] Fluocinonide 0.05% EX CREA 06/04/2012 - 03/21/2014 Pro vider: DAVID MCNAMARA MD Diagnosis: Lidex 0.05% cream; Disp: 60 g cream; Sig: apply to affected area nightly x 2 weeks, then 2 x per week. Last Documented On 03/21/2014 11:55AM By DAVID MCNAMARA MD ; [facility] Levothyroxine Sodium 100 MCG OR TABS 05/05/2011 - 12/2011 Provider: Diagnosis: Last Documented On 05/08/2012 1:47PM By GRAEME AREVALO LPN ; [facility] Lisinopril 10 MG OR TABS 05/05/2011 - 03/21/2014 Provi jatin: Diagnosis: Last Documented On 03/21/2014 11:18AM By GRAEME AREVALO LPN ; [facility] Medications Administered Includes: Administered Medications in patient's chart No Administered Medications Recorded Results Includes: Results from 08/11/2023 through 08/11/2024 No Results Recorded For Specified Dates History of Present Illness History of Present Illness not supported for this document type No History of Present Illness Recorded Social History Description Last Updated Smoking status : Never smoker 03/21/2014 Last Documented On 4 11:56AM ; [facility] Pt prefers to be called: ROBERTO 2 Last Documented On 2 2:38PM ; [facility] Caffeine use 2 CUPS OF COFFEE A DAY ~ OC C SODA ~ OCC TEA 05/08/2012 Last Documented On 2 2:38PM ; [facility] Marital history 05/05/2011 Last Documented On 1 2:52PM ; [facility] Non-smoker 05/05/2011 Last Documented On 1 2:52PM ; [facility] Not exercising regularly 05/05/2011 Last Documented On 1 2:52PM ; [facility] Not using alcohol 05/05/2011 Last Documented On 1 2:52PM ; [facility] Not using drugs 05/05/2011 Last Documented On 1 2:52PM ; [facility] Procedures and Surgical History Surgical History Last Updated Replacement of a hip 05/05/2011 Last Documented On 1 2:52PM ; [facility] Replacement of the right hip at [facility] on 08/11/2010 05/05/2011 Last Documented On 1 2:52PM ; [facility] No Bilateral salpingo-oophorectomy 05/05 Last Documented On 1 2:52PM ; [facility] No Breast Biopsy 05/05/2011 Last Documented On 1 2:52PM ; [facility] No Dilation + Curettage 05/05/2011 Last Documented On 1 2:52PM ; [facility] No Ectopic surgery 05/05/2011 Last Documented On 1 2:52PM ; [facility] No Endometrial Ablation 05/05/2011 Last Documented On 1 2:52PM ; [facility] No history of appendectomy 05/05/2011 Last Documented On 1 2:52PM ; [facility] No history of cholecystectomy 05/05/2011 Last Documented On 1 2:52PM ; [facility] No history of Loop electrode excision of cervix (LEEP) 05/05/2011 Last Documented On 1 2:52PM ; [facility] No history of total abdominal hysterecto my 05/05/2011 Last Documented On 1 2:52PM ; [facility] No history of tubal ligation 05/05/2011 Last Documented On 1 2:52PM ; [facility] No history of vaginal hysterectomy 05/05 Last Documented On 1 2:52PM ; [facility] No Laparoscopic Hysterectomy 05/05/2011 Last Documented On 1 2:52PM ; [facility] No Ovarian Cystectomy 05/05/2011 Last Documented On 1 2:52PM ; [facility] No Tonsillectomy 05/05/2011 Last Documented On 1 2:52PM ; [facility] Medical History Includes: Medical History in patient's chart Description Last Updated Patient recently had a dexa scan 05/14/2012 at [facility] with T-scores of -0.4, -0.6, and 0.9; 03/21/2014 Last Documented On 4 11:56AM ; [facility] History of complete colonosc opy 12/12/2013 dr. alvarez. polyps removed. repeat in 5 years 03/21/2014 Last Documented On 4 11:56AM ; [facility] Last mammogram date: 05/18/2012 03/21/20 14 Last Documented On 4 11:56AM ; [facility] History of a screening mammogram was per formed 05/18/2012 03/21/2014 Last Documented On 4 11:56AM ; [facility] History of Pap smear done 05/08/2012 Last Documented On 4 11:56AM ; [facility] Last pap smear date 05/08/2012 2 Last Documented On 2 6:43PM ; [facility] PRIMARY CARE PROVIDER : MYRA ESCALERA 2011 Last Documented On 2 2:38PM ; [facility] Result: normal AMH 05/08/2012 Last Documented On 2 2:38PM ; [facility] LMP: 10/31/1998 05/05/2011 Last Documented On 1 2:52PM ; [facility] Result: normal 05/05/2011 Last Documented On 1 2:52PM ; [facility] No history of cervical dysplasia 011 Last Documented On 1 2:52PM ; [facility] No history of human papilloma virus infe ction 05/05/2011 Last Documented On 1 2:52PM ; [facility] No history of urinary tract infection Last Documented On 1 2:52PM ; [facility] No history of vaginitis 05/05/2011 Last Documented On 1 2:52PM ; [facility] Aborta 1 05/05/2011 Last Documented On 1 2:52PM ; [facility] 3 05/05/2011 Last Documented On 1 2:52PM ; [facility] Para 2 05/05/2011 Last Documented On 1 2:52PM ; [facility] Vaginal delivery 05/05/2011 Last Documented On 1 2:52PM ; [facility] Family History Includes: Family History in patient's chart Description Last Updated Family history of malignant neoplasm of the large intestine -- pt's mat grand father at an older age 1105/05/2011 Last Documented On 1 2:52PM ; [facility] First child named MALE BABY 08/26/7008/2010 Last Documented On 1 2:52PM ; [facility] Second child named MALE BABY 07/16/8008/2010 Last Documented On 1 2:52PM ; [facility] Family history of hypercholesterolemia P ATIENT 05/05/2011 Last Documented On 1 2:52PM ; [facility] Family history of hypertension PATIENT 1 07/05/2010 Last Documented On 1 2:52PM ; [facility] Heart disease MOTHER AND FATHER 05/05/20 11 Last Documented On 1 2:52PM ; [facility] No family history of diabetes mellitus 1 07/05/2010 Last Documented On 1 2:52PM ; [facility] No family history of malignant female br east neoplasm 05/05/2011 Last Documented On 1 2:52PM ; [facility] No family history of malignant neoplasm of the ovary 05/05/2011 Last Documented On 1 2:52PM ; [facility] No family history of uterine cancer 08/2010 Last Documented On 1 2:52PM ; [facility] Review of Systems Review of Systems not supported for this document type No Review of Systems Recorded Mental Status No Mental Status Recorded Functional Status No Functional Status Recorded Physical Exam Physical Exam not supported for this document type No Physical Exam Recorded Allergies Includes: Active, inactive, and resolved Allergies No Known Allergies Clinical Notes Includes: Signed Clinical Notes starting from 07/22/2022 No Clinical Notes Recorded
[2024-08-11 15:15] VITALS: BP 141/60; PULSE 78; RESP 15; TEMP 36.7; O2SAT 99
[2024-08-11 16:03] LABS: Influenza A QL RT-PCR Negative (Negative); Influenza B QL RT-PCR Negative (Negative); RSV RNA, RT-PCR Negative (Negative); SARS-CoV-2 RNA PCR Positive (Negative)
--- OUTSIDE RECORDS SUMMARY | 2024-08-11 16:18 | XMS_ITS | Referral Summary ---
Author Organization [facility] [address] Address [address] [place] [address] Phone Care Team Providers Care Hot Packer Name Role Phone Tory Hoyt MD Unavailable Jean Lezama MD Primary Care Provider [phone] Encounters Date Type Department Care Team Description 05/27/2024 12:55 PM SHEEP KILLER - 05/27/2024 11:59 PM SHEEP KILLER Hospital Encounter [facility] [address] [place] [address] Screening mammogram, encounter for Discharge [...] on file Legal Sex Female 11:54 PM SHEEP KILLER Gender Identity Not on file Sexual Orientation [...] cm (5' 2 ) 05/27/2024 1:00 PM SHEEP KILLER Body Mass Index 40.24 12/23/2021 3:49 PM CDT Plan of Treatment Not on file Procedures Procedure Name Priority Date/Time Associated Diagnosis Comments SCREENING MAMMOGRAM BILATERAL W CASE Schedule Routine, Read Routine (OP Routine) 05/27/2024 1:09 PM SHEEP KILLER Screening mammogram, encounter for COLONOSCOPY 12/13/2013 12:00 AM CDT from Last 3 Months or Most Recently Relevant to Health Maintenance Results * Screening Mammogram Bilateral W Case (05/27/2024 1:09 PM SHEEP KILLER) Anatomical Region Laterality Modality Breast Bilateral Mammography 05/27/2024 1:54 PM SHEEP KILLER Impressions 05/27/2024 1:54 PM SHEEP KILLER There is no mammographic evidence to suggest malignancy. The patient may continue screening mammography as per ACR guidelines. FINAL ASSESSMENT: BI-RADS Category 1: Negative. Electronically signed by: Constance Zavaleta M.D. Narrative 05/27/2024 1:54 PM SHEEP KILLER EXAMINATION: BILATERAL SCREENING MAMMOGRAM WITH TOMOGRAPHY HISTORY: [...] CDT PROCEDURE REPORT Patient: LOREN PENDLETON Account: [id number] Room No: : 1945 Patient Type: SDS [...] path report. 5. Follow up with Dr. Blakcman. 6. Follow up in my office, otherwise, [...] SENIOR SUPPLEMENT [employer] SENIOR SUPPLEMENT Care Teams Hot Packer Relationship Specialty Start Date End Date Jean Lezama MD [address] [id number] PCP - General 02/02/22 Tory Hoyt MD [address] [address] Referring Physician Obstetrics and Gynecology 10/24/18
--- OUTSIDE RECORDS SUMMARY | 2024-08-11 16:18 | XMS_ITS | Clinical Summary ---
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 DAVID MCNAMARA MD Active Last Documented On 03/21/2014 11:56AM ; [facility] Note: 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 DAVID MCNAMARA MD Active Last Documented On 2 4:16PM ; [facility] 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 DAVID MCNAMARA MD Active Last Documented On 2 4:16PM ; [facility] Plan of Treatment No Plan of [...] By GRAEME AREVALO LPN ; [facility] Fluocinonide 0.05% EX CREA 06/04/2012 Provider: Diagnosis: Last Documented On 03/21/2014 11:17AM By GRAEME AREVALO LPN ; [facility] Fish Oil OIL 05/08/2012 Provider: Diagnosis: Last Documented On 05/08/2012 1:48PM By GRAEME AREVALO LPN ; [facility] Lisinopril-hydroCHLOROthiazide -12.5 MG TABS 011 Provider: Diagnosis: Last Documented On 05/05/2011 1:02PM By HIRA CAUSEY RN ; [facility] Vitamin D3 1000 UNIT OR CAPS 05/05/2011 Provider : Diagnosis: TWO DAILY Last Documented On 05/05/2011 1:06PM By HIRA CAUSEY RN ; [facility] Colace 100 MG OR CAPS 05/05/2011 Provider: Diagnosis: TWO BID Last Documented On 05/05/2011 1:07PM By HIRA CAUSEY RN ; [facility] Simvastatin 40 MG OR TABS 05/05/2011 Provider: Diagnosis: Last Documented On 05/05/2011 1:07PM By HIRA CAUSEY RN ; [facility] Calcium + D 315-200 MG-UNIT OR TABS 05/05/2011 Provi jatin: Diagnosis: Last Documented On 05/05/2011 1:01PM By HIRA CAUSEY RN ; [facility] Omeprazole 20 MG OR CPDR 05/05/2011 Provider: Diagnosis: Last Documented On 05/05/2011 1:00PM By HIRA CAUSEY RN ; [facility] Medications Administered Includes: Administered Medications from this [...] Time Check-Out Time Diagnosis RK MCNAMARA MD [facility] LEAD ASSISTANT MANAGER 05/14/2012 7:47AM 9:32AM Clinical Notes Includes: Clinical Notes from this encounter No Clinical Notes Recorded
--- OUTSIDE RECORDS SUMMARY | 2024-08-11 16:18 | XMS_ITS | Clinical Summary ---
Author Organization [facility] Address [address] [address] Phone Care Team Providers Care Improvement Coordinator Name Role Phone Provider, None Primary Care [...] on file Legal Sex Female 4:45 PM VIDEO EFFECTS EDITOR Gender Identity Not on file Sexual Orientation Not on file Last Filed Vital Signs Vital Sign Reading Time Taken Comments Blood Pressure 148/88 06/29/2015 10:04 AM VIDEO EFFECTS EDITOR Pulse 97 06/29/2015 10:04 AM VIDEO EFFECTS EDITOR Temperature 35.7 C (96.3 F) 06/29/2015 10:04 AM VIDEO EFFECTS EDITOR Respiratory Rate 20 06/29/2015 10:04 AM VIDEO EFFECTS EDITOR Oxygen Saturation 98% 06/29/2015 10:04 AM VIDEO EFFECTS EDITOR Inhaled Oxygen Concentration - - Weight 97.6 kg (215 lb 3.2 oz) 06/29/2015 10:04 AM VIDEO EFFECTS EDITOR Height 157.5 cm (5' 2 ) 06/29/2015 10:04 AM VIDEO EFFECTS EDITOR Body Mass Index 39.36 06/29/2015 10:04 AM VIDEO EFFECTS EDITOR Plan of Treatment Health Maintenance Due Date [...] [place]vant [place] [address] MEDICARE Care Teams Improvement Coordinator Relationship Specialty Start Date End Date Provider, None [place] PCP - General 12/17/20
--- OUTSIDE RECORDS SUMMARY | 2024-08-11 16:19 | XMS_ITS | Clinical Summary ---
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 DAVID MCNAMARA MD Active Last Documented On 03/21/2014 11:56AM ; [facility] Note: 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 DAVID MCNAMARA MD Active Last Documented On 2 4:16PM ; [facility] 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 - Last Documented On 05/08/2012 2:38PM ; [facility] ? OTHERFollow-up needs to follow up with her manager process for blood in the stool;OK to schedule mammogram at [facility];OK to schedule BMD here;needs to come back here for a vulvar biopsy sometime yet this year;return in one year for WWE. - Last Documented On 05/08/2012 2:38PM ; [facility] ? ASYMPT POSTMENO STATUSRad[facility] DEXA (to be scheduled) Instructions: last at [facility] on 04/27/2010 with T-scores of 0.6 in the spine and -0.1 in the hip; please send a copy to Dr Escalera also - Last Documented On 05/08/2012 2:38PM ; [facility] ? Cervical Pap SmearLab: THINPREP TIS PAP RFX HPV - Last Documented On 05/08/2012 2:38PM ; [facility] She will let us know if she has any further problems. - Last Documented On 05/08/2012 2:38PM ; [facility] Pending Tests Order Diagnosis Results Due Ordering P rovider Radiology @ other - *MAMMOGRAPHY Mammography Diffus Cystic Mastopathy 05/22/12 DAVID MCNAMARA MD Last Documented On 2 2:28PM ; [facility] Radiology @ other DEXA (to be scheduled) ASYMPT POSTMENO STATUS 05/22/12 DAVID MCNAMARA MD Last Documented On 2 2:28PM ; [facility] Lab THINPREP TIS PAP RFX HPV 06/07/12 DAVID MCNAMARA MD Last Documented On 2 2:38PM ; [facility] Instructions to patient Instructions for patient : B reast Self Exam discussed Last Documented On 2 2:10PM ; [facility] Education and Decision Aids were provided during visit for: Bone Mineral Density Screeni ng guidelines reviewed Last Documented On 2 2:10PM ; [facility] Patient Education: Daily misha cium and vitamin D Last Documented On 2 2:10PM ; [facility] Patient Education: weight be aring exercise Last Documented On 2 2:10PM ; [facility] Colonoscopy screening guidel aldo discussed Last Documented On 2 2:10PM ; [facility] Assessments Includes: Assessments from this encounter Findings - Hemoccult positive stool - Last Documented On 05/08/2012 2:38PM ; [facility] - Breast fibrocystic disease - Last Documented On 05/08/2012 2:38PM ; [facility] - NORMAL FEMALE EXAM - Last Documented On 05/08/2012 2:38PM ; [facility] - Vulvar leukoplakia - Last Documented On 05/08/2012 2:38PM ; [facility] - Screening Malig. Neoplasm Rectum - Last Documented On 05/08/2012 2:38PM ; [facility] Instructions Includes: Instructions from this encounter Instructions to patient Instructions for patient : B reast Self Exam discussed Last Documented On 2 2:10PM ; [facility] Education and Decision Aids were provided during visit for: Bone Mineral Density Screeni ng guidelines reviewed Last Documented On 2 2:10PM ; [facility] Patient Education: Daily misha cium and vitamin D Last Documented On 2 2:10PM ; [facility] Patient Education: weight be aring exercise Last Documented On 2 2:10PM ; [facility] Colonoscopy screening guidel aldo discussed Last Documented On 2 2:10PM ; [facility] Medical Equipment - Implanted Devices Includes: Current Devices No Medical Equipment Recorded Medications Includes: Medications discussed during this encounter and other current Medications Discontinued / Stopped on this date on 05/05/2011 Levothyroxine Sodium 100 MCG OR TABS Prov ider: Diagnosis: Last Documented On 05/08/2012 1:47PM By GRAEME AREVALO LPN ; [facility] Current Medications (continue as prescribed) Levothyroxine Sodium 100 MCG OR TABS 01/15/2014 Prov ider: Diagnosis: Last Documented On 03/21/2014 11:17AM By GRAEME AREVALO LPN ; [facility] Fluocinonide 0.05% EX CREA 06/04/2012 Provider: Diagnosis: Last Documented On 03/21/2014 11:17AM By GRAEME AREVALO LPN ; [facility] Fish Oil OIL 05/08/2012 Provider: Diagnosis: Last Documented On 05/08/2012 1:48PM By GRAEME AREVALO LPN ; [facility] Lisinopril-hydroCHLOROthiazide 20-12.5 MG TABS 011 Provider: Diagnosis: Last Documented On 05/05/2011 1:02PM By HIRA CAUSEY RN ; [facility] Vitamin D3 1000 UNIT OR CAPS 05/05/2011 Provider : Diagnosis: TWO DAILY Last Documented On 05/05/2011 1:06PM By HIRA CAUSEY RN ; [facility] Colace 100 MG OR CAPS 05/05/2011 Provider: [...] ; [facility] Past Medications on file Fluocinonide 0.05% EX CREA 03/21/2014 - 05/20/2014 Pro vider: DAVID MCNAMARA MD Diagnosis: LICHENIFICATION Lidex 0.05% cream; Disp: 60 g cream; Sig: apply to affected area 2 x per week. Last Documented On 03/21/2014 11:56AM By DAVID MCNAMAAR MD ; [facility] Medications Administered Includes: Administered Medications from this encounter No Administered Medications Recorded Vital Signs Includes: Vital Signs from this encounter Vital Name 05/08/2012 02:00P Blood Pressure Sitting (mmHg) 124/78 Height (in) 62.75 Weight (lb) 217 Body Mass Index (kg/m2) 38.7 Body Surface Area (m2) 2.0 Last Documented: On 05/08/2012 1:51PM ; [facility] Results Includes: Results discussed during [...] 2 Last Documented On 2 2:38PM ; [facility] Caffeine use 2 CUPS OF COFFEE A DAY ~ OC C SODA ~ OCC TEA 05/08/2012 Last Documented On 2 2:38PM ; [facility] Marital history 05/05/2011 Last Documented On 2 1:35PM ; [facility] Non-smoker 05/05/2011 Last Documented On 2 1:35PM ; [facility] Not exercising regularly 05/05/2011 Last Documented On 2 1:35PM ; [facility] Not using alcohol 05/05/2011 Last Documented On 2 1:35PM ; [facility] Not using drugs 05/05/2011 Last Documented On 2 1:35PM ; [facility] Smoking Status Unknown Procedures and Surgical History Includes: Procedures from this encounter Procedures Code Diagnosis Performing Provider Service L ocation Service Date Clinical summary provided to patient Last Documented On 2 2:10PM ; [facility] cervical Pap smear 98749 Last Documented On 2 2:10PM ; [facility] FIT Test-Fecal Occult was positive 05105 Last Documented On 2 2:29PM ; [facility] Surgical History Last Updated Replacement of a hip 05/05/2011 Last Documented On 2 1:35PM ; [facility] Replacement of the right hip at [facility] on 08/11/2010 05/05/2011 Last Documented On 2 1:35PM ; [facility] No Bilateral salpingo-oophorectomy 05/05 Last Documented On 2 1:35PM ; [facility] No Breast Biopsy 05/05/2011 Last Documented On 2 1:35PM ; [facility] No Dilation + Curettage 05/05/2011 Last Documented On 2 1:35PM ; [facility] No Ectopic surgery 05/05/2011 Last Documented On 2 1:35PM ; [facility] No Endometrial Ablation 05/05/2011 Last Documented On 2 1:35PM ; [facility] No history of appendectomy 05/05/2011 Last Documented On 2 1:35PM ; [facility] No history of cholecystectomy 05/05/2011 Last Documented On 2 1:35PM ; [facility] No history of Loop electrode excision of cervix (LEEP) 05/05/2011 Last Documented On 2 1:35PM ; [facility] No history of total abdominal hysterecto my 05/05/2011 Last Documented On 2 1:35PM ; [facility] No history of tubal ligation 05/05/2011 Last Documented On 2 1:35PM ; [facility] No history of vaginal hysterectomy 05/05 Last Documented On 2 1:35PM ; [facility] No Laparoscopic Hysterectomy 05/05/2011 Last Documented On 2 1:35PM ; [facility] No Ovarian Cystectomy 05/05/2011 Last Documented On 2 1:35PM ; [facility] No Tonsillectomy 05/05/2011 Last Documented On 2 1:35PM ; [facility] Medical History Includes: Medical History addressed during this encounter Description Last Updated Patient recently had a dexa scan 010 03/21/2014 Last Documented On 2 1:35PM ; [facility] PRIMARY CARE PROVIDER : MYRA ESCALERA 2011 Last Documented On 2 2:38PM ; [facility] Last mammogram date: 05/07/2011 05/08/20 12 Last Documented On 2 2:38PM ; [facility] Last pap smear date 05/05/2011 2 Last Documented On 2 2:38PM ; [facility] Result: normal AMH 05/08/2012 Last Documented On 2 2:38PM ; [facility] LMP: 10/31/1998 05/05/2011 Last Documented On 2 1:35PM ; [facility] Result: normal 05/05/2011 Last Documented On 2 1:35PM ; [facility] No history of cervical dysplasia 011 Last Documented On 2 1:35PM ; [facility] No history of human papilloma virus infe ction 05/05/2011 Last Documented On 2 1:35PM ; [facility] No history of urinary tract infection Last Documented On 2 1:35PM ; [facility] No history of vaginitis 05/05/2011 Last Documented On 2 1:35PM ; [facility] Aborta 1 05/05/2011 Last Documented On 2 1:35PM ; [facility] 3 05/05/2011 Last Documented On 2 1:35PM ; [facility] Para 2 05/05/2011 Last Documented On 2 1:35PM ; [facility] Vaginal delivery 05/05/2011 Last Documented On 2 1:35PM ; [facility] Family History Includes: Family History addressed during this encounter Description Last Updated Family history of malignant neoplasm of the large intestine -- pt's mat grand father at an older age 1105/05/2011 Last Documented On 2 1:35PM ; [facility] First child named MALE BABY 08/26/7008/2010 Last Documented On 2 1:35PM ; [facility] Second child named MALE BABY 07/16/8008/2010 Last Documented On 2 1:35PM ; [facility] Family history of hypercholesterolemia P ATIENT 05/05/2011 Last Documented On 2 1:35PM ; [facility] Family history of hypertension PATIENT 1 07/05/2010 Last Documented On 2 1:35PM ; [facility] Heart disease MOTHER AND FATHER 05/05/20 11 Last Documented On 2 1:35PM ; [facility] No family history of diabetes mellitus 1 07/05/2010 Last Documented On 2 1:35PM ; [facility] No family history of malignant female br east neoplasm 05/05/2011 Last Documented On 2 1:35PM ; [facility] No family history of malignant neoplasm of the ovary 05/05/2011 Last Documented On 2 1:35PM ; [facility] No family history of uterine cancer 08/2010 Last Documented On 2 1:35PM ; [facility] Review of Systems Includes: Review [...] Date Check-In Time Check-Out Time Diagnosis ANNUAL PHYSICIAN ASSISTANT EXAM DAVID MCNAMARA MD [facility] 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 Neoplasm Rectum,Normal Female Exam,Vulvar Leukoplakia,Marcy ast Fibrocystic Disease,Hemoccu lt Positive Stool Clinical Notes Includes: Clinical Notes from this encounter No Clinical Notes Recorded
--- OUTSIDE RECORDS SUMMARY | 2024-08-11 16:19 | XMS_ITS | Referral Summary ---
Author Organization [facility] [employer] Address [address] [place] [address] Care Team Providers Care Bottle Labeler Name Role Phone Jean Lezama MD Primary Care Provider [phone] Source Comments [facility] [employer],non-owned Affiliates and Associated Physician Practices is amultiple site organization consisting of ambulatory clinics and hospital sitesin [place], [place], [place] and [place]. This disclosure is being madepursuant to the Care Everywhere program and may not contain all information available regarding this patient. Last updated 18.[employer] Allergies No known active allergies Medications * [...] and heating? Not hard at all 03/13/2024 [facility] [place] [facility] Occupat ional Health - Occupational Stress [...] place to sleep or slept in a longterm (including now)? No 03/13/2024 Sex and Gender [...] Note: D/C return home with spouse and [facility]; Spouse will provide transportation at D/C. Medical Devices Implanted Type Area Wood Caulker Device Identifier Shelf Expiration Date Model / Serial / Lot Cmnt Bone Plc R 40gm Hvisc Grn Implanted:Qty: 1 on 03/13/2024 by Ginny Everett MD at [facility] Right: Knee Heraeus Kulzer Jelenko 06/01/2028 [id number] / / [id number] Cmpnt Fem Kn Rt Cr Cmnt Prm Vngrd Intlk Implanted:Qty: 1 on 03/13/2024 by Ginny Everett MD at [facility] Right: Knee [employer] 12/05/2033 [id number] / / [id number] Cmpnt Ptlr 31mm 1 Pg Wire Ascnt Arcm Kn Implanted:Qty: 1 on 03/13/2024 by Ginny Everett MD at [facility] Right: Knee [employer] 06/22/2027 [id number] / / [id number] Tray Tib 67mm Kn Cocr I Beam Implanted:Qty: 1 on 03/13/2024 by Ginny Everett MD at [facility] Right: Knee [employer] 10/06/2032 [id number] / / [id number] Brng [id number] Vngrd Vivacit-E Kn Ant Stab Implanted:Qty: 1 on 03/13/2024 by Ginny Everett MD at [facility] Right: Knee [employer] 01/21/2029 [id number] / / [id number] Procedures Procedure Name Priority Date/Time Associated Diagnosis Comments GLUCOSE - POINT OF CARE Routine 03/15/2024 8:09 AM CDT from Last 3 Months or Most Recently Relevant to Health Maintenance Results * GLUCOSE - POINT OF CARE (03/15/2024 8:09 AM CDT) [facility] Glucose WB/POC 99 70 - 106 mg/dL 03/15/2024 9:09 AM CDT [facility] Specimen Type Cap Fingerstick 2023 9:09 AM CDT [facility] Blood BLOOD SPECIMEN / Unknown 03/15/2024 8:09 AM CDT 03/15/2024 9:09 AM CDT Ginny Everett MD LAB - POINT OF CARE ORDERABLES [facility] [address] [place] [address] from Last 3 Months or Most Recently Relevant to Health Maintenance Advance Directives Documents on File Type Date Recorded Patient Sales Team Manager Expl anation Adv Directive/Living Will/POA 08/15/2010 12:17 PM * Full Code (Latest Code Status on File) Date Activated Date Inactivated Comments 03/13/2024 6:27 PM 03/15/2024 12:56 PM * Full Code Date Activated Date Inactivated Comments 08/11/2010 11:33 AM 08/14/2010 10:40 PM Care Teams Bottle Labeler Relationship Specialty Start Date End Date Jean Lezama MD [address] [place] [address] PCP - General Family Medicine 02/08/24
--- OUTSIDE RECORDS SUMMARY | 2024-08-11 16:19 | XMS_ITS | Continuity of Care Document ---
Author Organization [facility] Address [address] [place] [address] Phone Care Team Providers Care Wrecker Operator Name Role Phone Ginny Everett MD Unavailable Unavailable Allergies, Adverse Reactions, Alerts Substance Reaction Status Criticality No Known Allergies Active No Inform ation Medications Medication Instructions Dosage Effective Dates (start - stop) Status Comments amoxicillin 500 mg tablet Take 2 tabs 1 Hour prior to Dental work & 2 tabs 1 Hour after dental work. - Active lisinopril 20 mg-hydrochlorothiazi de 12.5 mg tablet take 1 tablet by oral route every day 1.00 tablet - Active Tirosint 100 mcg capsule take 1 capsule by oral route every day 100 MCG - Active omeprazole 20 mg capsule,delayed release take 1 capsule by oral route every day 30 minutes to 1 hour before a meal 20 MG - Active multivitamin capsule - Active atorvastatin 20 mg tablet take 1 tablet by oral route every day 20 MG - Active Procedures Procedure Date POSTOPERATIVE FOLLOW-UP [...] D LATERAL COMPARTMENT W/WO PATELLA RESURFACING OFFICE [id number] Cirilo-13-2024 KENALOG 10 MG ASP/INJ MAJOR JOINTOR BURSA, SHOULDER, H IP,KNEE W/O US GUIDANCE OFFICE [id number] KENALOG 10 MG ASP/INJ MAJOR JOINTOR BURSA, SHOULDER, H IP,KNEE W/O US GUIDANCE RADIOLOGIC EXAMINATION, KNEE; THREE VIEW S KENALOG 10 MG ASP/INJ MAJOR JOINTOR BURSA, SHOULDER, H IP,KNEE W/O US GUIDANCE OFFICE [id number] KENALOG 10 MG ASP/INJ MAJOR JOINTOR BURSA, SHOULDER, H IP,KNEE W/O US GUIDANCE OFFICE [id number] KENALOG 10 MG ASP/INJ MAJOR JOINTOR BURSA, SHOULDER, H IP,KNEE W/O US GUIDANCE OFFICE [id number] X-RAY EXAM OF KNEE, A/P & LAT KENALOG 10 MG ASP/INJ MAJOR JOINTOR BURSA, SHOULDER, H IP,KNEE W/O US GUIDANCE OFFICE [id number] OFFICE [id number] KENALOG 10 MG ASP/INJ MAJOR JOINTOR BURSA, SHOULDER, H IP,KNEE W/O US GUIDANCE Xray Exam, Hip, Unilat, Two Or Three Vie ws OFFICE [id number] KENALOG 10 MG ASP/INJ MAJOR JOINTOR BURSA, SHOULDER, H IP,KNEE W/O US GUIDANCE Advance Directives Directive Yes / No Effective Date File Name No Information Encounters Encounter Description Practice Location Reason(s) For Visit Diagnoses Date Provider Providers Copied on Encounter [facility], [address], [place], [place], [id number], [place] tel:[phone] [facility] knee (chief complaint) Status post total [facility] replacement, [facility] [address], [place], [place], [address] , [place]. tel:[phone] Referring Provider: Ginny Everett, [address], [place], [address] . tel:[phone] [facility], [address], [place], [place], [address], [place] tel:[phone] [facility] No Information [facility]. [id number], [place], [place], [address] , [place]. tel: [phone] [facility], [address], [place], [place], [address], [place] tel:[phone] [facility] knee (chief complaint) Status post total knee replacement, right [facility]. [address], [place], [place], [address] , [place]. tel: [phone] Referring Provider: [address], [place], [address] . tel:[phone] [facility], [address], [place], [place], [address], [place] tel:[phone] [facility] Pain, joint, knee, right [facility]. [address], [place], [place], [address] , [place]. tel: [phone] [facility], [address], [place], [place], [address], [place] tel:[phone] [facility] knee (chief complaint) Status post total knee replacement, right [facility]. [address], [place], [place], [address] , [place]. tel: [phone] Referring Provider: [address], [place], [address] . tel:[phone] [facility], [address], [place], [place], [address], [place] tel:[phone] [facility] No Information [facility]. [address], [place], [place], [address] , . tel:[phone] Referring Provider: [address], [place], [address] . tel:[phone] OFFICE UGUMR-XNN-WDS ANDED [facility], [address], [place], [place], [address], [place] tel:[phone] [facility] knee (chief complaint) Primary osteoarthritis of right knee [facility]. [address], [place], [place], [address] , [place]. tel:[phone] Referring Provider: [address], [place], [address] . tel:[phone] OFFICE RSIBR-EMN-ERT ANDED [facility], [address], [place], [place], [address], [place] tel:[phone] [facility] knee (chief complaint) Primary osteoarthritis of right knee [facility]. [address], [place], [place], [address] , [place]. tel:[phone] Referring Provider: [address], [place], [address] . tel:[phone] [facility] [address], [place], [place], [address], [place] tel:[phone] [facility] knee (chief complaint) Primary osteoarthritis of right knee [facility]. [address], [place], [place], [address] , [place]. tel:[phone] Referring Provider: [address], [place], [address] . tel:[phone] OFFICE UOWCY-BWX-JWU ANDED [facility], [facility] [address], [place], [place], [address], tel:[phone] [facility] knee (chief complaint) Primary osteoarthritis of right knee [facility]. [address], [place], [place], [address] , [place]. tel:[phone] Referring Provider: Ginny Everett, [address], [place], [address] . tel:[phone] OFFICE GYOHW-ZTM-GNU ANDED [facility], [facility] [address], [place], [place], [address], tel:[phone] [facility] knee (chief complaint) Primary osteoarthritis of right knee [facility]. [address], [place], [place], [address] , [place]. [phone] Referring Provider: Ginny Everett, [address], [place], [address] . tel:[phone] OFFICE HEESU-VOA-GEH ANDED [facility], [facility] [address], [place], [place], [address], tel:[phone] [facility] RT Knee (chief complaint) Primary osteoarthritis of right knee [facility]. [address], [place], [place], [address] , [place]. [phone] Referring Provider: Ginny Everett, [address], [place], [address] . tel:[phone] OFFICE QXOQJ-YDR-HDK ANDED [facility], [facility] [address], [place], [place], [address], tel:[phone] [facility] Left Hip (chief complaint) Trochanteric bursitis of left hip [facility]. [address], [place], [place], [address] , [place]. tel:[phone] Referring Provider: [address], [place], [address] . tel:[phone] OFFICE BTIRY-WXN-SUI [facility], [address], [place], [place], [address], [place] tel:[phone] [facility] Left Hip (chief complaint) Trochanteric bursitis of left hip [facility]. [address], [place], [place], [address] , [place]. tel:[phone] Referring Provider: [address], [place], [address] . tel:[phone] Family History Family Member Type Diagnosis Age At Onset No Information Payers Payer name Insurance type Covered libertarian ID Authorkrystin haro(s) MEDICARE MB [id number] [employer] CI [id number] Social History Type Description Quantity Date Captured [...] right knee anticipate right tkr-- 2023trip to [place] mts coming up knee hx total hip [...] Mental Status Date Cognitive Assessment Orientation - [place] ed to time, place, person, situation. Patient Care Teams Name Effective Dates (start - stop) Status Members No Information
--- OUTSIDE RECORDS SUMMARY | 2024-08-11 16:19 | XMS_ITS ---
Author Organization [facility] Address [address] [place] [address] Phone Care Team Providers Care Rn Acls Name Role Phone Unavailable Unavailable Unavailable Problems Includes: Active, inactive, and resolved Problems All Visits Onset Date Resolved Date Provider Condition S tatus Cystocele 03/21/2014 DAVID MCNAMARA MD Active Last Documented On 03/21/2014 11:56AM ; [facility] Note: Unchanged Lichen Simplex Chronicus 03/21/2014 DAVID MCNAMARA MD Active Last Documented On 03/21/2014 11:56AM ; 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 Plan of Treatment Findings Encounter Date She will let us know if she has any further problems ANNUAL FOAMING MACHINE OPERATOR EXAM with DAVID MCNAMARA MD 05/08/2012 Last Documented On 2 2:38PM ; [facility] Ordered follow-up visit 1 ye ar or as needed NEW POCKET MACHINE OPERATOR EXAM with DAVID MCNAMARA MD 05/05/2011 Last Documented On 1 2:52PM ; [facility] Instructions to patient Instructions for patient : B reast Self Exam discussed Last Documented On 2 2:10PM ; [facility] Instructions for patient : B reast Self Exam discussed Last Documented On 1 2:40PM ; [facility] Education and Decision Aids were provided during visit for: Risks, benefits, and alterna tives to vulvar biopsy are reviewed. Questions answered and pt expresses understanding. Consent is obtained before proceeding with the above biopsy Last Documented On 2 6:33PM ; [facility] Bone Mineral Density Screeni ng guidelines reviewed Last Documented On 2 2:10PM ; [facility] Patient Education: Daily misha cium and vitamin D Last Documented On 2 2:10PM ; [facility] Patient Education: weight be aring exercise Last Documented On 2 2:10PM ; [facility] Colonoscopy screening guidel aldo discussed Last Documented On 2 2:10PM ; [facility] Bone Mineral Density Screeni ng guidelines reviewed Last Documented On 1 2:40PM ; [facility] Patient Education: Daily misha cium and vitamin D Last Documented On 1 2:40PM ; [facility] Patient Education: weight be aring exercise Last Documented On 1 2:40PM ; [facility] Colonoscopy screening guidel aldo discussed Last Documented On 1 2:40PM ; [facility] Assessments Includes: Assessments for all patient encounters Findings Encounter Date Cystocele PROBLEM VISIT with DAVID Lewis MD 03/21/2014 Last Documented On 4 11:56AM ; [facility] Lichen simplex chronicus PROBLEM VISIT with DAVID MCNAMARA MD 03/21/2014 Last Documented On 4 11:56AM ; [facility] Lichen simplex chronicus RECHECK with DAVID MORENO MD 06/04/2012 Last Documented On 2 2:46PM ; [facility] 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 Neoplasm Rectum ANNUAL FOAMING MACHINE OPERATOR EXAM with DAVID MCNAMARA MD 05/08/2012 Last Documented On 2 2:38PM ; [facility] Vulvar leukoplakia ANNUAL FOAMING MACHINE OPERATOR EXAM with DAVID MANZANARES MD 05/08/2012 Last Documented On 2 2:38PM ; [facility] Breast fibrocystic disease NEW POCKET MACHINE OPERATOR EXAM with DAVID MCNAMARA MD 05/05/2011 Last Documented On 1 2:52PM ; [facility] NORMAL FEMALE EXAM NEW POCKET MACHINE OPERATOR EXAM with DAVID LANGSTON MD 05/05/2011 Last Documented On 1 2:52PM ; [facility] Screening Malig. Neoplasm Rectum NEW POCKET MACHINE OPERATOR EXAM wi th DAVID MCNAMARA MD 05/05/2011 Last Documented On 1 2:52PM ; [facility] Symptomatic menopause --dry vagina NEW POCKET MACHINE OPERATOR EXAM with DAVID MCNAMARA MD 05/05/2011 Last Documented On 1 2:52PM ; [facility] Instructions Includes: Instructions for all patient encounters Instructions to patient Instructions for patient : B reast Self Exam discussed Last Documented On 2 2:10PM ; [facility] Instructions for patient : B reast Self Exam discussed Last Documented On 1 2:40PM ; [facility] Education and Decision Aids were provided during visit for: Risks, benefits, and alterna tives to vulvar biopsy are reviewed. Questions answered and pt expresses understanding. Consent is obtained before proceeding with the above biopsy Last Documented On 2 6:33PM ; [facility] Bone Mineral Density Screeni ng guidelines reviewed Last Documented On 2 2:10PM ; [facility] Patient Education: Daily misha cium and vitamin D Last Documented On 2 2:10PM ; [facility] Patient Education: weight be aring exercise Last Documented On 2 2:10PM ; [facility] Colonoscopy screening guidel aldo discussed Last Documented On 2 2:10PM ; [facility] Bone Mineral Density Screeni ng guidelines reviewed Last Documented On 1 2:40PM ; [facility] Patient Education: Daily misha cium and vitamin D Last Documented On 1 2:40PM ; [facility] Patient Education: weight be aring exercise Last Documented On 1 2:40PM ; [facility] Colonoscopy screening guidel aldo discussed Last Documented On 1 2:40PM ; [facility] Medical Equipment - Implanted Devices Includes: Current and historical Devices No Medical Equipment Recorded Medications Includes: Current and historical Medications Current Medications (continue as prescribed) Levothyroxine Sodium 100 MCG OR TABS 01/15/2014 Prov ider: Diagnosis: Last Documented On 03/21/2014 11:17AM By GRAEME AREVALO LPN ; [facility] Fluocinonide 0.05% EX CREA 06/04/2012 Provider: Diagnosis: Last Documented On 03/21/2014 11:17AM By GRAEME AREVALO LPN ; [facility] Fish Oil OIL 05/08/2012 Provider: Diagnosis: Last Documented On 05/08/2012 1:48PM By GRAEME AREVALO LPN ; [facility] Lisinopril-hydroCHLOROthiazide 20-12.5 MG TABS 011 Provider: Diagnosis: Last Documented On 05/05/2011 1:02PM By HIRA CAUSEY RN ; [facility] Vitamin D3 1000 UNIT OR CAPS 05/05/2011 Provider : Diagnosis: TWO DAILY Last Documented On 05/05/2011 1:06PM By HIRA CAUSEY RN ; [facility] Colace 100 MG OR CAPS 05/05/2011 Provider: Diagnosis: TWO BID Last Documented On 05/05/2011 1:07PM By HIRA CAUSEY RN ; [facility] Simvastatin 40 MG OR TABS 05/05/2011 Provider: Diagnosis: Last Documented On 05/05/2011 1:07PM By HIRA CAUSEY RN ; [facility] Calcium + D 315-200 MG-UNIT OR TABS 05/05/2011 Provi jatin: Diagnosis: Last Documented On 05/05/2011 1:01PM By HIRA CAUSEY RN ; [facility] Omeprazole 20 MG OR CPDR 05/05/2011 [...] 03/21/2014 11:56AM By DAVID MCNAMARA MD ; [facility] Fluocinonide 0.05% EX CREA 06/04/2012 - 03/21/2014 Pro vider: DAVID MCNAMARA MD Diagnosis: Lidex 0.05% cream; Disp: 60 g cream; Sig: apply to affected area nightly x 2 weeks, then 2 x per week. Last Documented On 03/21/2014 11:55AM By DAVID MCNAMARA MD ; [facility] Levothyroxine Sodium 100 MCG OR TABS 05/05/2011 - 12/2011 Provider: Diagnosis: Last Documented On 05/08/2012 1:47PM By GRAEME AREVALO LPN ; [facility] Lisinopril 10 MG OR TABS 05/05/2011 - 03/21/2014 Provi jatin: Diagnosis: Last Documented On 03/21/2014 11:18AM By GRAEME AREVALO LPN ; [facility] Medications Administered Includes: Administered Medications [...] 03/21/2014 Last Documented On 4 11:56AM ; [facility] Pt prefers to be called: ROBERTO 2 Last Documented On 2 2:38PM ; [facility] Caffeine use 2 CUPS OF COFFEE A DAY ~ OC C SODA ~ OCC TEA 05/08/2012 Last Documented On 2 2:38PM ; [facility] Marital history 05/05/2011 Last Documented On 1 2:52PM ; [facility] Non-smoker 05/05/2011 Last Documented On 1 2:52PM ; [facility] Not exercising regularly 05/05/2011 Last Documented On 1 2:52PM ; [facility] Not using alcohol 05/05/2011 Last Documented On 1 2:52PM ; [facility] Not using drugs 05/05/2011 Last Documented On 1 2:52PM ; [facility] Procedures and Surgical History Surgical History Last Updated Replacement of a hip 05/05/2011 Last Documented On 1 2:52PM ; [facility] Replacement of the right hip at [facility] on 08/11/2010 05/05/2011 Last Documented On 1 2:52PM ; [facility] No Bilateral salpingo-oophorectomy 05/05 Last Documented On 1 2:52PM ; [facility] No Breast Biopsy 05/05/2011 Last Documented On 1 2:52PM ; [facility] No Dilation + Curettage 05/05/2011 Last Documented On 1 2:52PM ; [facility] No Ectopic surgery 05/05/2011 Last Documented On 1 2:52PM ; [facility] No Endometrial Ablation 05/05/2011 Last Documented On 1 2:52PM ; [facility] No history of appendectomy 05/05/2011 Last Documented On 1 2:52PM ; [facility] No history of cholecystectomy 05/05/2011 Last Documented On 1 2:52PM ; [facility] No history of Loop electrode excision of cervix (LEEP) 05/05/2011 Last Documented On 1 2:52PM ; [facility] No history of total abdominal hysterecto my 05/05/2011 Last Documented On 1 2:52PM ; [facility] No history of tubal ligation 05/05/2011 Last Documented On 1 2:52PM ; [facility] No history of vaginal hysterectomy 05/05 Last Documented On 1 2:52PM ; [facility] No Laparoscopic Hysterectomy 05/05/2011 Last Documented On 1 2:52PM ; [facility] No Ovarian Cystectomy 05/05/2011 Last Documented On 1 2:52PM ; [facility] No Tonsillectomy 05/05/2011 Last Documented On 1 2:52PM ; [facility] Medical History Includes: Medical History in patient's chart Description Last Updated Patient recently had a dexa scan 05/14/2012 at [facility] with T-scores of -0.4, -0.6, and 0.9; 03/21/2014 Last Documented On 4 11:56AM ; [facility] History of complete colonosc opy 12/12/2013 dr. alvarez. polyps removed. repeat in 5 years 03/21/2014 Last Documented On 4 11:56AM ; [facility] Last mammogram date: 05/18/2012 03/21/20 14 Last Documented On 4 11:56AM ; [facility] History of a screening mammogram was per formed 05/18/2012 03/21/2014 Last Documented On 4 11:56AM ; [facility] History of Pap smear done 05/08/2012 Last Documented On 4 11:56AM ; [facility] Last pap smear date 05/08/2012 2 Last Documented On 2 6:43PM ; [facility] PRIMARY CARE PROVIDER : MYRA ESCALERA 2011 Last Documented On 2 2:38PM ; [facility] Result: normal AMH 05/08/2012 Last Documented On 2 2:38PM ; [facility] LMP: 10/31/1998 05/05/2011 Last Documented On 1 2:52PM ; [facility] Result: normal 05/05/2011 Last Documented On 1 2:52PM ; [facility] No history of cervical dysplasia 011 Last Documented On 1 2:52PM ; [facility] No history of human papilloma virus infe ction 05/05/2011 Last Documented On 1 2:52PM ; [facility] No history of urinary tract infection Last Documented On 1 2:52PM ; [facility] No history of vaginitis 05/05/2011 Last Documented On 1 2:52PM ; [facility] Aborta 1 05/05/2011 Last Documented On 1 2:52PM ; [facility] 3 05/05/2011 Last Documented On 1 2:52PM ; [facility] Para 2 05/05/2011 Last Documented On 1 2:52PM ; [facility] Vaginal delivery 05/05/2011 Last Documented On 1 2:52PM ; [facility] Family History Includes: Family History in patient's chart Description Last Updated Family history of malignant neoplasm of the large intestine -- pt's mat grand father at an older age 1105/05/2011 Last Documented On 1 2:52PM ; [facility] First child named MALE BABY 08/26/7008/2010 Last Documented On 1 2:52PM ; [facility] Second child named MALE BABY 07/16/8008/2010 Last Documented On 1 2:52PM ; [facility] Family history of hypercholesterolemia P ATIENT 05/05/2011 Last Documented On 1 2:52PM ; [facility] Family history of hypertension PATIENT 1 07/05/2010 Last Documented On 1 2:52PM ; [facility] Heart disease MOTHER AND FATHER 05/05/20 11 Last Documented On 1 2:52PM ; [facility] No family history of diabetes mellitus 1 07/05/2010 Last Documented On 1 2:52PM ; [facility] No family history of malignant female br east neoplasm 05/05/2011 Last Documented On 1 2:52PM ; [facility] No family history of malignant neoplasm of the ovary 05/05/2011 Last Documented On 1 2:52PM ; [facility] No family history of uterine cancer 08/2010 Last Documented On 1 2:52PM ; [facility] Review of Systems Review of Systems not [...]
--- OUTSIDE RECORDS SUMMARY | 2024-08-11 16:19 | XMS_ITS | Clinical Summary ---
Author Organization [facility] Address [address] [place] [address] Care Team Providers Care Insurance Attorney Name Role Phone Jean Lezama MD Primary Care Provider [phone] Source Comments [facility],non-owned Affiliates and Associated Physician Practices is amultiple site organization consisting of ambulatory clinics and hospital sitesin [place], [place], [place] and [place]. This disclosure is being madepursuant to the Care Everywhere program and may not contain all information available regarding this patient. Last updated 18.[employer] Allergies No known active allergies Medications * [...] and heating? Not hard at all 03/13/2024 [facility] [place] [facility] Occupat ional Health - Occupational Stress [...] place to sleep or slept in a detention (including now)? No 03/13/2024 Sex and Gender [...] Note: D/C return home with spouse and [facility]; Spouse will provide transportation at D/C. Medical Devices Implanted Type Area Weight Count Operator Device Identifier Shelf Expiration Date Model / Serial / Lot Cmnt Bone Plc R 40gm Hvisc Grn Implanted:Qty: 1 on 03/13/2024 by Ginny Everett MD at [facility] Right: Knee Heraeus Kulzer Jelenko 06/01/2028 [id number] / / [id number] Cmpnt Fem Kn Rt Cr Cmnt Prm Vngrd Intlk Implanted:Qty: 1 on 03/13/2024 by Ginny Everett MD at [facility] Right: Knee [employer] 12/05/2033 [id number] / / [id number] Cmpnt Ptlr 31mm 1 Pg Wire Ascnt Arcm Kn Implanted:Qty: 1 on 03/13/2024 by Ginny Everett MD at [facility] Right: Knee [employer] 06/22/2027 [id number] / / [id number] Tray Tib 67mm Kn Cocr I Beam Implanted:Qty: 1 on 03/13/2024 by Ginny Everett MD at [facility] Right: Knee [employer] 10/06/2032 [id number] / / [id number] Brng 21k30fm Vngrd Vivacit-E Kn Ant Stab Implanted:Qty: 1 on 03/13/2024 by Ginny Everett MD at [facility] Right: Knee [employer] 01/21/2029 [id number] / / [id number] Procedures Procedure Name Priority Date/Time Associated Diagnosis Comments GLUCOSE - POINT OF CARE Routine 03/15/2024 8:09 AM CDT from Last 3 Months or Most Recently Relevant to Health Maintenance Results * GLUCOSE - POINT OF CARE (03/15/2024 8:09 AM CDT) [facility] Glucose WB/POC 99 70 - 106 mg/dL 03/15/2024 9:09 AM CDT [facility] Specimen Type Cap Fingerstick 2023 9:09 AM CDT [facility] Blood BLOOD SPECIMEN / Unknown 03/15/2024 8:09 AM CDT 03/15/2024 9:09 AM CDT Ginny Everett MD LAB - POINT OF CARE ORDERABLES Performing Organization Address City/State/[facility] Co de Phone Number [facility] [address] [place] [address] from Last 3 Months or Most Recently Relevant to Health Maintenance Advance Directives Documents on File Type Date Recorded 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
--- OUTSIDE RECORDS SUMMARY | 2024-08-11 16:19 | XMS_ITS ---
Care Plan - [facility] Created on: August 11, 2024 CELESTE PENDLETON : 1945 Sex: Female Author Organization [facility] Address [address] [place] [address] Phone Care Team Providers Care Precision Thread Grinder Operator Name Role Phone Unavailable Unavailable Unavailable
--- OUTSIDE RECORDS SUMMARY | 2024-08-11 16:19 | XMS_ITS | Clinical Summary ---
Author Organization [facility] Address [address] [place] [address] Phone Care Team Providers Care Engine Builder Name Role Phone Unavailable Unavailable Unavailable Reason for Visit and Chief Complaint The Chief Complaint is: prolapse she first noticed 2 weeks, The Chief Complaint is: Problems Includes: Problems addressed during this encounter and other active Problems Current Visit Onset Date Resolved Date Provider Conditio n Status Cystocele 03/21/2014 DAVID MCNAMARA MD Active Last Documented On 03/21/2014 11:56AM ; [facility] Note: Unchanged Lichen Simplex Chronicus 03/21/2014 DAVID MCNAMARA MD Active Last Documented On 03/21/2014 11:56AM ; [facility] Note: Unchanged Past Visits Onset Date Resolved Date Provider Condition 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 DAVID LANGSTON MD Active Last Documented On 2 4:16PM ; [facility] 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 DAVID MCNAMARA MD Active Last Documented On 2 4:16PM ; [facility] Plan of Treatment No Plan of Treatment Recorded Assessments Includes: Assessments from this encounter Findings - Cystocele - Last Documented On 03/21/2014 11:56AM ; [facility] - Lichen simplex chronicus - Last Documented On 03/21/2014 11:56AM ; [facility] Medical Equipment - Implanted Devices Includes: Current Devices No Medical Equipment Recorded Medications Includes: Medications discussed during this encounter and other current Medications Discontinued / Stopped on this date on 05/05/2011 Lisinopril 10 MG OR TABS Provider: Diagnosis: Last Documented On 03/21/2014 11:18AM By GRAEME AREVALO LPN ; [facility] New / Renewed during this visit DAVID MCNAMARA MD on 03/21/2014 Fluocinonide 0.05% EX CREA Provider: Gutierrez MCNAMARA MD 30 day supply: 60 gram, 1 refills Diagnosis: LICHENIFICATION Lidex 0.05% cream; Disp: 60 g cream; Sig: apply to affected area 2 x per week. [facility] [address] , [facility], [id number] - Last Documented On 03/21/2014 11:56AM By DAVID MCNAMARA MD ; [facility] Current Medications (continue as prescribed) Levothyroxine Sodium 100 MCG OR TABS 01/15/2014 Prov ider: Diagnosis: Last Documented On 03/21/2014 11:17AM By GRAEME AREVALO LPN ; [facility] Fluocinonide 0.05% EX CREA 06/04/2012 Provider: Diagnosis: Last Documented On 03/21/2014 11:17AM By GRAEME AREVALO LPN ; [facility] Fish Oil OIL 05/08/2012 Provider: Diagnosis: Last Documented On 05/08/2012 1:48PM By GRAEME AREVALO LPN ; [facility] Lisinopril-hydroCHLOROthiazide 20-12.5 MG TABS 011 Provider: Diagnosis: Last Documented On 05/05/2011 1:02PM By HIRA CAUSEY RN ; [facility] Vitamin D3 1000 UNIT OR CAPS 05/05/2011 Provider : Diagnosis: TWO DAILY Last Documented On 05/05/2011 1:06PM By HIRA CAUSEY RN ; [facility] Colace 100 MG OR CAPS 05/05/2011 Provider: Diagnosis: TWO BID Last Documented On 05/05/2011 1:07PM By HIRA CAUSEY RN ; [facility] Simvastatin 40 MG OR TABS 05/05/2011 Provider: Diagnosis: Last Documented On 05/05/2011 1:07PM By HIRA CAUSEY RN ; [facility] Calcium + D 315-200 MG-UNIT OR TABS 05/05/2011 Provi jatin: Diagnosis: Last Documented On 05/05/2011 1:01PM By HIRA CAUSEY RN ; [facility] Omeprazole 20 MG OR CPDR 05/05/2011 Provider: Diagnosis: Last Documented On 05/05/2011 1:00PM By HIRA CAUSEY RN ; [facility] Medications Administered Includes: Administered Medications from this encounter No Administered Medications Recorded Vital Signs Includes: Vital Signs from this encounter Vital Name 03/21/2014 11:13A Blood Pressure Sitting L 120/58 BP Cuff Size Regular Weight (lb) 204 Last Documented: On 03/21/2014 11:20A M ; [facility] Results Includes: [...] 03/21/2014 Last Documented On 4 11:56AM ; [facility] Pt prefers to be called: ROBERTO 2 Last Documented On 4 10:56AM ; [facility] Caffeine use 2 CUPS OF COFFEE A DAY ~ OC C SODA ~ OCC TEA 05/08/2012 Last Documented On 4 10:56AM ; [facility] Marital history 05/05/2011 Last Documented On 4 10:56AM ; [facility] Non-smoker 05/05/2011 Last Documented On 4 10:56AM ; [facility] Not using alcohol 05/05/2011 Last Documented On 4 10:56AM ; [facility] Procedures and Surgical History Includes: Procedures from this encounter Procedures Code Diagnosis Performing Provider Service L ocation Service Date Clinical summary provided to patient Last Documented On 4 11:48AM ; [facility] Surgical History Last Updated Replacement of a hip 05/05/2011 Last Documented On 4 10:56AM ; [facility] Replacement of the right hip at [facility] on 08/11/2010 05/05/2011 Last Documented On 4 10:56AM ; [facility] Medical History Includes: Medical History addressed during this encounter Description Last Updated Patient recently had [facility] with T-scores of -0.4, -0.6, and 0.9; 03/21/2014 Last Documented On 4 11:56AM ; [facility] History of complete colonosc opy 12/12/2013 dr. alvarez. polyps removed. repeat in 5 years 03/21/2014 Last Documented On 4 11:56AM ; [facility] Last mammogram date: 05/18/2012 03/21/20 14 Last Documented On 4 11:56AM ; [facility] History of a screening mammogram was per formed 05/18/2012 03/21/2014 Last Documented On 4 11:56AM ; [facility] History of Pap smear done 05/08/2012 Last Documented On 4 11:56AM ; [facility] Last pap smear date 05/08/2012 2 Last Documented On 4 10:56AM ; [facility] PRIMARY CARE PROVIDER : MYRA ESCALERA 2011 Last Documented On 4 10:56AM ; [facility] Result: normal AMH 05/08/2012 Last Documented On 4 10:56AM ; [facility] LMP: 10/31/1998 05/05/2011 Last Documented On 4 10:56AM ; [facility] Result: normal 05/05/2011 Last Documented On 4 10:56AM ; [facility] Aborta 1 05/05/2011 Last Documented On 4 10:56AM ; [facility] 3 05/05/2011 Last Documented On 4 10:56AM ; [facility] Para 2 05/05/2011 Last Documented On 4 10:56AM ; [facility] Vaginal delivery 05/05/2011 Last Documented On 4 10:56AM ; [facility] Family History Includes: Family History addressed during this encounter Description Last Updated Family history of malignant neoplasm of the large intestine -- pt's mat grand father at an older age 1105/05/2011 Last Documented On 4 10:56AM ; [facility] First child named MALE BABY 08/26/7008/2010 Last Documented On 4 10:56AM ; [facility] Second child named MALE BABY 07/16/8008/2010 Last Documented On 4 10:56AM ; [facility] Family history of hypercholesterolemia P ATIENT 05/05/2011 Last Documented On 4 10:56AM ; [facility] Family history of hypertension PATIENT 1 07/05/2010 Last Documented On 4 10:56AM ; [facility] Heart disease MOTHER AND FATHER 05/05/20 11 Last Documented On 4 10:56AM ; [facility] No family history of diabetes mellitus 1 07/05/2010 Last Documented On 4 10:56AM ; [facility] No family history of malignant female br east neoplasm 05/05/2011 Last Documented On 4 10:56AM ; [facility] No family history of malignant neoplasm of the ovary 05/05/2011 Last Documented On 4 10:56AM ; [facility] No family history of uterine cancer 08/2010 Last Documented On 4 10:56AM ; [facility] Review of Systems Includes: Review of Systems [...] Time Diagnosis PROBLEM VISIT DAVID MCNAMARA MD [facility] 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
--- OUTSIDE RECORDS SUMMARY | 2024-08-11 16:19 | XMS_ITS | Clinical Summary ---
Author Organization [facility] [address] Address [address] [place] [address] Phone Care Team Providers Care Newborn Hearing Screener Name Role Phone Tory Hoyt MD Unavailable Jean Lezama MD Primary Care Provider [phone] Allergies No known active allergies Medications lisinopril-hydroCHL [...] Department Care Team Description 05/27/2024 12:55 PM CERTIFIED OPHTHALMIC TECHNOLOGIST - 05/27/2024 11:59 PM CERTIFIED OPHTHALMIC TECHNOLOGIST Hospital Encounter [facility] [address] [place] [id number] Screening mammogram, encounter for Discharge Disposition: Discharge [...] on file Legal Sex Female 11:54 PM CERTIFIED OPHTHALMIC TECHNOLOGIST Gender Identity Not on file Sexual Orientation [...] cm (5' 2 ) 05/27/2024 1:00 PM CERTIFIED OPHTHALMIC TECHNOLOGIST Body Mass Index 40.24 12/23/2021 3:49 PM [...] Read Routine (OP Routine) 05/27/2024 1:09 PM CERTIFIED OPHTHALMIC TECHNOLOGIST Screening mammogram, encounter for COLONOSCOPY 12/13/2013 12:00 AM CDT from Last 3 Months or Most Recently Relevant to Health Maintenance Results * Screening Mammogram Bilateral W Case (05/27/2024 1:09 PM CERTIFIED OPHTHALMIC TECHNOLOGIST) Anatomical Region Laterality Modality Breast Bilateral Mammography 05/27/2024 1:54 PM CERTIFIED OPHTHALMIC TECHNOLOGIST Impressions 05/27/2024 1:54 PM CERTIFIED OPHTHALMIC TECHNOLOGIST There is no mammographic evidence to suggest malignancy. The patient may continue screening mammography as per ACR guidelines. FINAL ASSESSMENT: BI-RADS Category 1: Negative. Electronically signed by: Constance Zavaleta M.D. Narrative 05/27/2024 1:54 PM CERTIFIED OPHTHALMIC TECHNOLOGIST EXAMINATION: BILATERAL SCREENING MAMMOGRAM WITH TOMOGRAPHY HISTORY: [...] CDT PROCEDURE REPORT Patient: LOREN PENDLETON Account: [id number] Room No: : 1945 Patient Type: SDS [...] Relevant to Health Maintenance Insurance [employer] SENIOR [facility] MEDICARE [facility] Address: [address] [address] [place] [address] T SENIOR SUPPLEMENT MEDICARE [employer] SENIOR SUPPLEMENT Care Teams Newborn Hearing Screener Relationship Specialty Start Date End Date Jean Lezama MD [address] [id number] PCP - General 02/02/22 Tory Hoyt MD [address] [address] Referring Physician Obstetrics and Gynecology 10/24/18
--- OUTSIDE RECORDS SUMMARY | 2024-08-11 16:19 | XMS_ITS | Clinical Summary ---
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 DAVID MCNAMARA MD Active Last Documented On 2 4:16PM ; [facility] Past Visits Onset Date Resolved Date Provider Condition Status Cystocele 03/21/2014 DAVID MCNAMARA MD Active Last Documented On 03/21/2014 11:56AM ; [facility] Note: 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 OTHERFollow-up return in 2-3 weeks to review vulvar biopsy results. - Last Documented On 05/14/2012 6:43PM ; [facility] Pending Tests Order Diagnosis Results Due Ordering P omarder In office procedures - OB Vulvar Biopsy- One Lesion LEUKOPLAKIA OF VAGINA 05/28/12 DAVID MCNAMARA MD Last Documented On 2 8:40AM ; [facility] Education and Decision Aids were provided during visit for: Risks, benefits, and alterna tives to vulvar biopsy are reviewed. Questions answered and pt expresses understanding. 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 Questions answered and pt expresses understanding. Consent is obtained before proceeding with the above biopsy Last Documented On 2 6:33PM ; [facility] Medical Equipment - Implanted Devices Includes: Current Devices No Medical Equipment Recorded Medications Includes: Medications discussed during this encounter and other current Medications Current Medications (continue as prescribed) Levothyroxine Sodium 100 MCG OR TABS 01/15/2014 Prov ider: Diagnosis: Last Documented On 03/21/2014 11:17AM By GRAEME AREVALO LPN ; [facility] Fluocinonide 0.05% EX CREA 06/04/2012 Provider: Diagnosis: Last Documented On 03/21/2014 11:17AM By GRAEME AREVALO LPN ; [facility] Fish Oil OIL 05/08/2012 Provider: Diagnosis: Last Documented On 05/08/2012 1:48PM By GRAEME AREVALO LPN ; [facility] Lisinopril-hydroCHLOROthiazide 20-12.5 MG TABS 011 Provider: Diagnosis: Last Documented On 05/05/2011 1:02PM By HIRA CAUSEY RN ; [facility] Vitamin D3 1000 UNIT OR CAPS 05/05/2011 Provider : Diagnosis: TWO DAILY Last Documented On 05/05/2011 1:06PM By HIRA CAUSEY RN ; [facility] Colace 100 MG OR CAPS 05/05/2011 Provider: Diagnosis: TWO BID Last Documented On 05/05/2011 1:07PM By HIRA CAUSEY RN ; [facility] Simvastatin 40 MG OR TABS 05/05/2011 Provider: Diagnosis: Last Documented On 05/05/2011 1:07PM By HIRA CAUSEY RN ; [facility] Calcium + D 315-200 MG-UNIT OR TABS 05/05/2011 Provi jatin: Diagnosis: Last Documented On 05/05/2011 1:01PM By HIRA CAUSEY RN ; [facility] Omeprazole 20 MG OR CPDR 05/05/2011 Provider: Diagnosis: Last Documented On 05/05/2011 1:00PM By HIRA CAUSEY RN ; [facility] Past Medications on file Fluocinonide 0.05% EX CREA 03/21/2014 - 05/20/2014 Pro vider: DAVID MCNAMARA MD Diagnosis: LICHENIFICATION Lidex 0.05% cream; Disp: 60 g cream; Sig: apply to affected area 2 x per week. Last Documented On 03/21/2014 11:56AM By DAVID MCNAMARA MD ; [facility] Medications Administered Includes: Administered Medications from this encounter No Administered Medications Recorded Vital Signs Includes: Vital Signs from this encounter Vital Name 05/14/2012 08:00A Blood Pressure Sitting (mmHg) 160/78 Height (in) 62.75 Weight (lb) 217 Body Mass Index (kg/m2) 38.7 Body Surface Area (m2) 2.0 Last Documented: On 05/14/2012 8:08AM ; [facility] Results Includes: Results discussed during [...] 2 Last Documented On 2 6:43PM ; [facility] Family History Includes: Family History [...] Time Diagnosis PROCEDURE OFFICE DAVID MCNAMARA MD [facility] DIGITAL PRODUCT MANAGER 05/14/20 12 7:45AM 8:43AM Vulvar Leukoplakia Clinical Notes Includes: Clinical Notes from this encounter No Clinical Notes Recorded
--- OUTSIDE RECORDS SUMMARY | 2024-08-11 16:19 | XMS_ITS | Clinical Summary ---
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 Note: Unchanged Past Visits Onset Date Resolved Date Provider Condition Status Cystocele 03/21/2014 DAVID MCNAMARA MD Active Last Documented On 03/21/2014 11:56AM ; 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 Fluocinonide 0.05 % CREA, , 30 days, 6 refills, Lidex 0.05% cream; Disp: 60 g cream; Sig: apply to affected area nightly x 2 weeks, then 2 x per week. - Last Documented On 06/04/2012 2:46PM ; [facility] Assessments Includes: Assessments from this encounter Findings - Lichen simplex chronicus - Last Documented On 06/04/2012 2:46PM ; [facility] Medical Equipment - Implanted Devices Includes: [...] weeks, then 2 x per week. [facility], [address] - Last Documented On 03/21/2014 11:55AM By DAVID MCNAMARA MD ; [facility] Current Medications (continue as prescribed) Levothyroxine Sodium 100 MCG OR TABS 01/15/2014 Prov ider: Diagnosis: Last Documented On 03/21/2014 11:17AM By GRAEME AREVALO LPN ; [facility] Fluocinonide 0.05% EX CREA 06/04/2012 Provider: Diagnosis: Last Documented On 03/21/2014 11:17AM By GRAEME AREVALO LPN ; [facility] Fish Oil OIL 05/08/2012 Provider: Diagnosis: Last Documented On 05/08/2012 1:48PM By GRAEME AREVALO LPN ; [facility] Lisinopril-hydroCHLOROthiazide 20-12.5 MG TABS 011 Provider: Diagnosis: Last Documented On 05/05/2011 1:02PM By HIRA CAUSEY RN ; [facility] Vitamin D3 1000 UNIT OR CAPS 05/05/2011 Provider : Diagnosis: TWO DAILY Last Documented On 05/05/2011 1:06PM By HIRA CAUSEY RN ; [facility] Colace 100 MG OR CAPS 05/05/2011 Provider: Diagnosis: TWO BID Last Documented On 05/05/2011 1:07PM By HIRA CAUSEY RN ; [facility] Simvastatin 40 MG OR TABS 05/05/2011 Provider: Diagnosis: Last Documented On 05/05/2011 1:07PM By HIRA CAUSEY RN ; [facility] Calcium + D 315-200 MG-UNIT OR TABS 05/05/2011 Provi jatin: Diagnosis: Last Documented On 05/05/2011 1:01PM By HIRA CAUSEY RN ; [facility] Omeprazole 20 MG OR CPDR 05/05/2011 Provider: Diagnosis: Last Documented On 05/05/2011 1:00PM By HIRA CAUSEY RN ; [facility] Medications Administered Includes: Administered Medications from this encounter No Administered Medications Recorded Vital Signs Includes: Vital Signs from this encounter Vital Name 06/04/2012 02:30P Blood Pressure Sitting (mmHg) 110/72 Height (in) 62.75 Weight (lb) 217 Body Mass Index (kg/m2) 38.7 Body Surface Area (m2) 2.0 Last Documented: On 06/04/2012 2:33PM ; [facility] Results Includes: Results discussed during this encounter [...] patient Last Documented On 2 2:45PM ; [facility] Medical History Includes: Medical History addressed during [...] Check-Out Time Diagnosis RECHECK DAVID MCNAMARA MD [facility] PERPETUAL INVENTORY CLERK 2 2:28PM 2:42PM Lichen Simplex Chronicus Clinical Notes Includes: Clinical Notes from this encounter No Clinical Notes Recorded
--- OUTSIDE RECORDS SUMMARY | 2024-08-11 16:19 | XMS_ITS | Patient Health Summary ---
Author Organization [facility] Address [address] [place] [address] Care Team Providers Care Apprentice Painter Hand Name Role Phone Jean Lezama MD Primary Care Provider [phone] Note from [facility],non-owned Affiliates and Associated Physician Practices is amultiple site organization consisting of ambulatory clinics and hospital sitesin [place], [place], [place] and [place]. This disclosure is being madepursuant to the Care Everywhere program and may not contain all information available regarding this patient. Last updated 18.[facility] Allergies No known active allergies Medications [...] and heating? Not hard at all 03/13/2024 [facility] [place] [facility] Occupat ional Health - Occupational Stress [...] place to sleep or slept in a mcfp (including now)? No 03/13/2024 Sex and Gender [...] AM CDT Medical Devices Implanted Type Area Legal Process Specialist Device Identifier Shelf Expiration Date Model / Serial / Lot Cmnt Bone Plc R 40gm Hvisc Grn Implanted:Qty: 1 on 03/13/2024 by Ginny Everett MD at [facility] Right: Knee Jeanne Rigginslzer Devontelen[employer] 06/01/2028 [id number] / / [id number] Cmpnt Fem Kn Rt Cr Cmnt Prm Vngrd Intlk Implanted:Qty: 1 on 03/13/2024 by Ginny Everett MD at [facility] Right: Knee [employer] 12/05/2033 [id number] / / [id number] Cmpnt Ptlr 31mm 1 Pg Wire Ascnt Arcm Kn Implanted:Qty: 1 on 03/13/2024 by Ginny Everett MD at [facility] Right: Knee [employer] 06/22/2027 [id number] / / [id number] Tray Tib 67mm Kn Cocr I Beam Implanted:Qty: 1 on 03/13/2024 by Ginny Everett MD at [facility] Right: Knee [employer] 10/06/2032 [id number] / / [id number] Brng [id number] Vngrd Vivacit-E Kn Ant Stab Implanted:Qty: 1 on 03/13/2024 by Ginny Everett MD at [facility] Right: Knee [employer] 01/21/2029 [id number] / / [id number] Procedures * IMAGING/RADIOLOGY/XRAY RESULTS ORDER(Performed 03/19/2024) * [...] 03/13/2024) * ENDOTRACHEAL TUBE NOTE(Performed 03/13/2024) * [place] TOTAL KNEE REPLACEMENT(Performed 03/13/2024) * BASIC METABOLIC [...] - 106 mg/dL 03/15/2024 9:09 AM CDT [facility] Specimen Type Cap Fingerstick 2023 9:09 AM CDT [facility] Blood BLOOD SPECIMEN / Unknown 03/15/2024 8:09 AM CDT 03/15/2024 9:09 AM CDT Ginny Everett MD LAB - POINT OF CARE ORDERABLES [facility] [address] [place] [address] * ETT LINE PERFORMABLE (03/13/2024 8:12 AM CDT) Narrative Alka Wise APRN-CRNA - 03/13/2024 8:12 AM CDT Alka Wise APRN-CRNA 03/13/2024 8:13 AM Endotracheal Tube Placement: Patient Location: OR. Intubation Event Date/Time: 03/13/2024 8:03 AM Procedure: intubation (22026) Procedure Section: Sedation: under general anesthesia. Indications [...] - 105 mg/dL 03/13/2024 7:06 AM CDT [facility] Sodium 144 136 - 145 mmol/L 03/13/2024 7:06 AM CDT [facility] Potassium 3.7 3.5 - 5.1 mmol/L 03/13/2024 7:06 AM CDT [facility] Chloride 111(H) 98 - 107 mmol/L 03/13/2024 7:06 AM CDT [facility] CO2 22 22 - 29 mmol/L 03/13/2024 7:06 AM CDT [facility] Calcium 10.4 8.4 - 10.4 mg/dL 03/13/2024 7:06 AM CDT [facility] Anion Gap 11 6 - 16 mmol/L 03/13/2024 7:06 AM CDT [facility] BUN 14 7 - 26 mg/dL 03/13/2024 7:06 AM T [facility] Creatinine 0.77 0.57 - 1.11 mg/dL 03/13/2024 7:06 AM T [facility] eGFR by CKD-EPI 79(L) >=90 mL/min/1.7 3 m2 03/13/2024 7:06 AM T [facility] Blood BLOOD SPECIMEN / Unknown Venipuncture / Unknown 03/13/2024 6:27 AM CDT 03/13/2024 6:48 AM CDT Estela Hagen DO LAB - CHEMISTRY JAMIEE SHANITA Performing Organization Address [facility] Co de Phone Number [facility] [address] [place] [address] * (ABNORMAL) HGB HCT PANEL (08/13/2010 3:00 AM COLD ROLL CATCHER) Only the most recent of2 resultswithin the time period is included. Hemoglobin 10.6(L) 12.0 - 16.0 gm/dl [facility] Hematocrit 32.1(L) 36.0 - 48.0 % [facility] BLOOD SPECIMEN / Unknown 08/13/2010 3:00 AM COLD ROLL CATCHER 08/13/2010 5:24 AM COLD ROLL CATCHER Ginny Everett MD LAB - HEMATOLOGY ORD ERABLES Performing Organization Address City/[facility]/ZIP Co de Phone Number [facility] [address] [place] [id number] * (ABNORMAL) BLOOD GASES ARTERIAL (08/12/2010 2:10 PM COLD ROLL CATCHER) pH Arterial 7.43(H) 7.38 - 7.42 pH Units [facility] pCO2 Arterial 31(L) 35 - 45 mm Hg [facility] pO2 Arterial 80 80 - 105 mm Hg [facility] O2 Saturation Arterial 96 95 - 98 % [facility] HCO3 Arterial 20(L) 22 - 26 mmol/L [facility] TCO2 Arterial 21(L) 23 - 27 mmol/L [facility] Base Excess Arterial -3 -2 to 3 mmol/L [facility] Hemoglobin Arterial 11.9(L) 12 - 17 g/dl [facility] Hematocrit Arterial 35(L) 38 - 51 % [facility] Glucose 170(H) 70 - 105 mg/dl [facility] Sodium Arterial 134(L) 138 - 146 mmol/L [facility] Potassium Arterial 3.8 3.5 - 4.9 mmol/L [facility] Calcium Ionized 1.20 1.12 - 1.32 mmol/L [facility] Site L Radial [facility] FI O2 Arterial 21 [facility] Skyler's Test Pass [facility] ARTERIAL BLOOD SPECIMEN / Unknown 08/12/2010 2:10 PM COLD ROLL CATCHER 08/12/2010 2:39 PM COLD ROLL CATCHER Ginny Everett MD LAB - BLOOD GASES OR DERABLES Performing Organization Address [facility] de Phone Number [facility] [address] [place] [phone] * PT-INR (08/11/2010 8:20 AM COLD ROLL CATCHER) Pathologist [facility] PT 10.0 9.4 - 11.2 seconds [facility] INR 0.9 SEE BELOW [facility] Comment: 0.9-1.1 Normal 2.0-3.0 Conventional 2.5-3.5 Intensive BLOOD SPECIMEN / Unknown 08/11/2010 8:20 AM COLD ROLL CATCHER 08/11/2010 8:27 AM COLD ROLL CATCHER Ginny Everett MD LAB - COAGULATION OR DERABLES Performing Organization Address [facility] Co de Phone Number [facility] [address] [place] [address] * URINALYSIS ROUTINE W/REFLEX TO CULTURE (07/29/2010 8:50 AM COLD ROLL CATCHER) Color UA YELLOW [facility] Character UA TURBID [facility] Specific [place] UA 1.016 1.005 - 1.0300 [facility] pH UA 8.5 4.6 - 8.0 pH Units [facility] Leukocyte UA LARGE Negative /ul [facility] Nitrite UA NEGATIVE Negative [facility] Protein UA TRACE Negative mg/dl [facility] Glucose UA NEGATIVE Normal mg/dl [facility] Ketone UA NEGATIVE Negative mg/dl [facility] Urobilinogen UA 1.0 Normal [place]baro Units [facility] Bilirubin UA NEGATIVE Negative mg/dl [facility] Blood UA NEGATIVE Negative /ul [facility] WBC UA PACKED <5 /HPF [facility] RBC UA 0-2 <5 /HPF [facility] Epithelial Cell UA 50-100 <5 /HPF [facility] Mucus UA 1+ [facility] Casts UA 2-5 <2 /LPF [facility] Bacteria UA MODERATE [facility] Urine Culture Reflex to culture, /a 4047 [facility] URINE SPECIMEN OBTAINED BY CLEAN CATCH PROCEDURE / Unknown 07/29/2010 8:50 AM COLD ROLL CATCHER 07/29/2010 10:05 AM COLD ROLL CATCHER Ginny Everett MD LAB - URINALYSIS ORD ERABLES [facility] [address] [place] [address] * CULTURE URINE (07/29/2010 8:50 AM COLD ROLL CATCHER) Result [facility] Comment: Final CULTURE >100,000 colonies/ml mixed aerobic jomar. MIXED CULTURE,NO FURTHER WORK-UP WILL BE PERFORMED RECOLLECT IF INDICATED If pyelonephritis is suspected call Microbiology at [phone]. URINE SPECIMEN OBTAINED BY CLEAN CATCH PROCEDURE / Unknown 07/29/2010 8:50 AM COLD ROLL CATCHER 07/29/2010 10:34 AM COLD ROLL CATCHER Narrative Resulting Agency Comment Performed By [facility];[address];[place] [address] Ginny Everett MD LAB - MICROBIOLOGY O RDERABLES [facility] [address] [place] [address] * CBC W AUTO DIFFERENTIAL (07/29/2010 8:50 AM COLD ROLL CATCHER) WBC 8.4 4.5 - 11.0 1000/mm3 [facility] RBC 4.72 4.2 - 5.4 10X6 [facility] Hemoglobin 14.5 12.0 - 16.0 gm/dl [facility] Hematocrit 43.4 36.0 - 48.0 % [facility] MCV 91.9 80.0 - 99.0 fl [facility] MCH 30.7 25.0 - 31.0 pg [facility] MCHC 33.4 32.0 - 36.0 gm/dl [facility] RDW 12.3 11.5 - 14.5 % [facility] Platelet Count 187 130.0 - 400.0 1000/mm3 [facility] Granulocytes % 57.9 40.0 - 70.0 % [facility] Lymphocytes % 28.9 22.0 - 40.0 % [facility] Monocytes % 9.8 2.0 - 10.0 % [facility] Eosinophils % 3.2 0.0 - 6.0 % [facility] Basophils % 0.2 0.0 - 3.0 % [facility] Granulocytes Absolute 4.87 1.8 - 7.7 [facility] Lymphocytes Absolute 2.43 1.0 - 5.4 [facility] Monocytes Absolute 0.82 0.1 - 1.1 [facility] Eosinophils Absolute 0.27 0.0 - 0.7 [facility] Basophils Absolute 0.02 0.0 - 0.2 [facility] Comment Manual Diff Not Indicated [facility] BLOOD SPECIMEN / Unknown 07/29/2010 8:50 AM COLD ROLL CATCHER 07/29/2010 10:02 AM COLD ROLL CATCHER Ginny Everett MD LAB - HEMATOLOGY ORD ERABLES Performing Organization Address City/[facility]/ZIP Co de Phone Number [facility] [address] [place] [address] * (ABNORMAL) COMPREHENSIVE METABOLIC PANEL (07/29/2010 8:50 AM COLD ROLL CATCHER) BUN 14 7.0 - 17.0 mg/dl [facility] Sodium 142 137 - 145 mmol/L [facility] Potassium 4.6 3.6 - 5.0 mmol/L [facility] Chloride 105 98.0 - 107.0 mmol/L [facility] Glucose 96 70 - 105 mg/dl [facility] Creatinine 0.7 0.52 - 1.05 mg/dl [facility] AST 29 14.0 - 36.0 U/L [facility] Alkaline Phosphatase 68 38.0 - 126.0 U/L [facility] Calcium 10.5(H) 8.4 - 10.2 mg/dl [facility] Bilirubin Total 0.4 0.2 - 1.3 mg/dl [facility] Albumin 4.1 3.5 - 5.0 gm/dl [facility] Protein Total 7.4 6.3 - 8.2 gm/dl [facility] CO2 30 22.0 - 30.0 mEq/L [facility] ALT 24 9.0 - 52.0 U/L [facility] eGFR by MDRD 84.51 ml/min/1.7 3m2 [facility] BLOOD SPECIMEN / Unknown 07/29/2010 8:50 AM COLD ROLL CATCHER 07/29/2010 10:02 AM COLD ROLL CATCHER Ginny Everett MD LAB - CHEMISTRY CASH DIEHL [facility] [address] [place] [address] Care Teams Apprentice Painter Hand Relationship Specialty Start Date End Date Jean Lezama MD [address] [place] [address] PCP - General Family Medicine 02/08/24
--- NOTE | 2024-08-11 16:46 | ED_ITS ---
HPI - URI/Sore Throat General Chief Complaint: Upper Respiratory Infection Stated Complaint: cough, dizziness Time Seen by Provider: 08/11/24 16:09 History of Present Illness HPI Narrative: 78-year-old female with history of type 2 diabetes, hypertension, hyperlipidemia, hypothyroidism presents to the ED with at bedside for URI symptoms for the past 3 days. Patient reporting generalized weakness, fatigue, cough, congestion, malaise , nausea. She denies fever recent sick c ontacts, abdominal pain, V/D. Denies chest pain or shortness of breath. Related Data Allergies Allergy/AdvReac Type Severity Reaction Status Date / Time No Known Allergies Allergy Verified 08/11/24 15:11 Review of Systems Review of Systems: All systems reviewed & are unremarkable except as noted in HPI and below PMFSH Past Medical History Medical History History of vaginal delivery GERD (gastroesophageal reflux disease) Obesity Hypothyroid Hypertension Hyperlipidemia Surgical History Surgical History Status post total hip replacement, right History of bladder suspension procedure History of hysterectomy History of tonsillectomy Family History Family History Mother Lung cancer Father Heart disease Dementia Sibling Heart disease CAD (coronary artery disease) Social History Social History Smoking status: Never smoker Second hand tobacco smoke exposure: No Alcohol intake: never Substance use: never Substance use type: does not use Lack of Transportation: No Lack of Food: Never True Current Housing: I Have Housing Concerned About Future Housing: No Difficulty Paying Gas/Electric Bills: No Difficulty Paying for Meds: No Currently Unemployed: No Education: High School Diploma/GED Living arrangements: with family Occupation/Education: retired Gender identity (if verbalized by the patient): Female Sexual Orientation (if Verbalized by the Patient): Straight or Heterosexual Spiritual care concerns: No Agree to blood products: Yes Exam Narrative: GENERAL: Well-appearing, well-nourished, and in no acute distress. HEAD: Normocephalic, atraumatic. EYES: EOMI. ENT: Nares clear, no rhinorrhea or epistaxis. Mucous membranes moist. NECK: Supple. CHEST: Clear to auscultation. No respiratory distress. HEART: Regular rate and rhythm. No murmur heard. Normal peripheral pulses. ABDOMEN: Soft, nontender, nondistended, normal active bowel sounds. EXTREMITIES: Normal range of motion. No edema. SKIN: Warm, dry, no rash. NEURO: No focal deficits. Alert and oriented x3 Course Vital Signs Vital signs: Vital Signs Temperature 98.0 F 08/11/24 15:15 Pulse Rate 78 08/11/24 15:15 Respiratory Rate 15 08/11/24 15:15 Blood Pressure 141/60 H 08/11/24 15:15 Pulse Oximetry 99 08/11/24 15:15 Oxygen Delivery Room Air 08/11/24 15:15 Temperature 98.0 F 08/11/24 15:15 Pulse Rate 70 08/11/24 16:54 Respiratory Rate 24 H 08/11/24 16:54 Blood Pressure 108/75 08/11/24 16:54 Pulse Oximetry 95 08/11/24 16:54 Oxygen Delivery Room Air 08/11/24 15:15 MDM - URI/Sore Throat MDM Narrative Medical decision making narrative: 78-year-old female with history of hypertension, hyperlipidemia, type 2 diabetes presents to the emergency department for URI symptoms for the past 3 days. Vitals are stable. Patient is afebrile nontoxic appearing on exam. Resting comfortably in exam bed. Lung sounds are clear, exam is significant for the above. Viral swabs did indicate a positive COVID-19 infection. CXR w/o PNA. Patient and updated on results. Shared decision making regarding providing IV fluids in the ED given reported decreased fluid intake. Patient agrees to hydrate orally while at home. Feel this is fair as she does not appear dehydrated on exam. will send Zofran to the pharmacy. Discussed supportive measures, bland diet, increase fluid intake and return precautions. Patient and her are agreeable with the plan verbalized understanding. Discharged in stable condition. Lab Data Labs: Lab Results 08/11/24 Range/Units 15:15 Influenza A (RT-PCR) Negative (Negative) Influenza B (RT-PCR) Negative (Negative) RSV (RT-PCR) Negative (Negative) SARS-CoV-2 RNA (RT-PCR) Positive A (Negative) Discharge Plan Discharge Clinical Impression: COVID-19 Patient Disposition: Home, Self-Care Condition: Stable Instructions: Antibiotic Form, COVID-19 (Coronavirus Disease 2019) (ED) Additional Instructions: You were evaluated in the emergency department for cough congestion, fatigue weakness for 3 days. He tested positive for COVID-19. Please rest, drink plenty fluids including water, Gatorade and Pedialyte, take Tylenol as needed for body aches and fever. He can take ondansetron as needed for nausea and vomiting. Return to the emergency department if you are unable to tolerate food or fluids, develop worsening cough or other concerning symptoms. Patient Language: Sri Lankan Prescriptions: New ondansetron 4 mg tablet,disintegrating 4 mg PO Q8H Qty: 14 0RF No Action lisinopril-hydrochlorothiazide 20-12.5 mg tablet 1 tablet PO DAILY Qty: 90 3RF atorvastatin 20 mg tablet 20 mg PO DAILY Qty: 90 3RF omeprazole 20 mg capsule,delayed release(DR/EC) 20 mg PO DAILY Qty: 90 3RF levothyroxine 100 mcg tablet 100 mcg PO DAILY Qty: 90 3RF metformin 500 mg tablet 500 mg PO DAILY Qty: 90 1RF Follow-up/Referrals: Jean Lezama MD [Primary Care Provider] -
[2024-08-11 16:54] VITALS: BP 108/75; PULSE 70; RESP 24; O2SAT 95
== END 2024-08-11 17:11 | disposition home or self-care (01) ==
PROVIDERS: Emergency Medicine; Emergency Provider Physician Assistant; PCP Family Medicine
DX: U07.1 COVID-19 (principal); I10 Essential (primary) hypertension; E78.5 Hyperlipidemia, unspecified; E03.9 Hypothyroidism, unspecified; E11.9 Type 2 diabetes mellitus without complications; E66.9 Obesity, unspecified; K21.9 Gastro-esophageal reflux disease without esophagitis; Z96.641 Presence of right artificial hip joint; Z90.710 Acquired absence of both cervix and uterus; Z79.899 Other long term (current) drug therapy; Z79.84 Long term (current) use of oral hypoglycemic drugs; Z68.31 Body mass index [BMI] 31.0-31.9, adult
CPT/HCPCS: 71046; 87637; 99283